=== PATIENT | female | born 1995 | race Caucasian/White ===

== ENCOUNTER 2018-08-02 23:27 | Emergency (ER) | payer BC, SELFPAY ==
[2018-08-02 23:27] VITALS: BP 124/56; PULSE 78; RESP 16; TEMP 36.5; O2SAT 98; BMI 28.0
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
--- NOTE | 2018-08-03 00:28 | ED.DEP ---
ED Disposition - Plan for ED Patient: Chief Complaint: Lower Extremity Injury Instructions: ED Sprain Ankle W X Ray Referrals: Juan A Balbuena DO [Primary Care Provider] -
[2018-08-03 00:31] VITALS: RESP 18
== END 2018-08-03 00:32 | disposition home or self-care (01) ==
LOC: ED 08-03 00:07
PROVIDERS: Emergency Provider Emergency Medicine; Family Provider Student in an Organized Health Care Education/Training Program; PCP Student in an Organized Health Care Education/Training Program
DX: S93.402A Sprain of unspecified ligament of left ankle, initial encounter (principal); W01.0XXA Fall on same level from slipping, tripping and stumbling without subsequent striking against object, initial encounter; Y93.9 Activity, unspecified; Y92.9 Unspecified place or not applicable
CPT/HCPCS: 73610; 99283

== ENCOUNTER → 2022-04-12 | Outpatient (CLI) | payer BC, SELFPAY ==
[2022-04-12 14:13] LABS: Cholesterol 209 mg/dL (200); High Density Lipoprotein 62 mg/dL; Triglycerides 143 mg/dL; Very Low Density Lipoprotein 29 mg/dL (5-40)
== END | disposition home or self-care (01) ==
PROVIDERS: PCP Student in an Organized Health Care Education/Training Program; Visit Provider Nurse Practitioner Family
DX: Z13.220 Encounter for screening for lipoid disorders (principal)
CPT/HCPCS: 80061

== ENCOUNTER 2023-08-24 13:38 | Outpatient (RCR) | payer SELFPAY | END 2023-09-05 23:59 | LOC: NS 13:38 | PROVIDERS: PCP Student in an Organized Health Care Education/Training Program | DX: Z71.3 Dietary counseling and surveillance (principal) ==

== ENCOUNTER 2025-09-20 12:15 | Emergency (ER) | payer BC, SELFPAY ==
[2025-09-20 12:16] VITALS: BP 117/60; PULSE 77; RESP 16; TEMP 36.7; O2SAT 99; BMI 28.5
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
--- NOTE | 2025-09-20 12:53 | PCA ---
THIS US FAXED FACE SHEET TO [facility] [phone]
--- OUTSIDE RECORDS SUMMARY | 2025-09-20 12:57 | XMS RPT_ITS | CCD ---
Author Organization [facility] Care Team Providers Care International Coordinator Name Role Phone Juan A Balbuena DO Primary Care Provider Referred, Self Attending Unavailable Juan A Balbuena Primary Care Unavailable Juan A Balbuena Primary Care Unavailable Referred, Self Attending Unavailable Juan A Balbuena DO Primary Care Provider Juan A Balbuena DO Primary Care Provider Saurabh MARKET GARDENER.Susan ESTEVEZ Unavailable Annalise MARKET GARDENER.Chalino ESTEVEZ Unavailable Jasmyn MARKET GARDENER.CARTON FORMING MACHINE ADJUSTERBushra Unavailable CHALINO BOB Attending Unavailable JUAN A BALBUENA Primary Care Unavailable SUSAN WILEY Attending UnavailJUAN A Diaz Primary Care Unavailable JAYDE BANGURA Attending Unavailable JUAN A BALBUENA Primary Care Unavailable JUAN A BALBUENA Primary Care Unavailable CHALINO BOB Attending Unavailable JUAN A BALBUENA Attending Unavailable JUAN A BALBUENA Primary Care Unavailable JUAN A BALBUENA Referring Unavailable JUAN A BALBUENA Primary Care Unavailable JUAN A BALBUENA Primary Care Unavailable BUSHRA GEE Attending Unavailable BJ HIGH Attending Unavailable JUAN A BALBUENA Primary Care Unavailable Medications Current Medications Medication Drug Class(es) Dates Sig (Normalized) Sig (Original) biotin 10 mg oral capsule (20 sources) Biotin 10,000 mc g cap Take by mouth. Active Comment on above: Take by mouth. cholecalciferol 0.125 mg oral capsule (20 sources) Vitamin D Start: 11-24-2021 take 1 capsule by mouth once daily Cholecalciferol, Vitamin D3, 125 mcg (5,000 unit) cap Indications: Vitamin D deficiency Take 1 capsule by mouth once daily. 90 capsule 3 11/24/2021 Active Comment on above: Take 1 capsule by mo [facility] once daily. cyclobenzaprine hydrochloride 10 mg oral tablet (1 source) Muscle Relaxant Start: 11-22-2024 End: 12-22-2024 take 1 tablet by mouth three times daily as needed cyclobenzaprine (FLEXERIL) 10 mg tablet Indications: Muscle strain Take 1 tablet by mouth three times a day as needed. 30 tablet 11/22/2024 12/22/2024 Active fluocinolone acetonide 0.01588 mg/mg topical ointment (4 sources) Corticosteroid Start: 08-31-2022 End: 10-15-2022 fluocinolone (SYNALAR) 0.025 % ointment Apply to affected area as directed. APPLY PEA-Sized amount 3 TIMES DAILY FOR 2 WEEKS THEN TWICE A DAY FOR TWO WEEKS THEN ONCE A DAY for 2 weeks 60 g 0 08/31/2022 10/15/2022 Active Comment on above: Apply to affected ar ea as directed. APPLY PEA-Sized amount 3 TIMES DAILY FOR 2 WEEKS THEN TWICE A DAY FOR TWO WEEKS THEN ONCE A DAY for 2 weeks magnesium gluconate 500 mg oral tablet (20 sources) Start: 04-19-2022 End: 02-18-2024 take 1 tablet by mouth once daily magnesium gluconate (MAGONATE) 27 mg (500 mg) tab Indications: Migraine without aura, intractable, without status migrainosus Take 1 tablet by mouth once daily. 90 tablet 1 02/19/2024 Active Start: 04-16-2022 take 1 tablet by guerda once daily Magnesium Gluconate 30 mg (550 mg) tab Indications: Headache disorder Take 1 tablet by mouth once daily. 100 tablet 3 04/16/2022 Active Comment on above: Take 1 tablet by guerda once daily. 1 ml medroxyPROGESTERone acetate 150 mg/ml prefilled syringe (20 sources) Progestin Start : 06-25 End: 10-31 medroxyPROGESTERone (DEPO-PROVERA) 150 mg/mL Inject 1 mL intramuscularly every 12 weeks. 1 Each 3 10/31/2024 Active Comment on above: Inject 1 mL intramus cularly every 12 weeks. INJECT IM EVERY 12 WEEKS. INJECT 1 ML INTRAMUS CULARLY EVERY 12 WEEKS. metFORMIN hydrochloride 500 mg oral tablet (20 sources) Biguanide Start : 05-21 End: 09-22 take 1 tablet by mouth twice daily at mealtime metFORMIN (GLUCOPHAGE) 500 mg tablet Indications: Obesity, Class I, BMI 30-34.9 Take 1 tablet by mouth two times a day with meals. 180 tablet 06/24/2025 09/22/2025 Active Start: 05-22-2024 End: 05-21-2025 take 31-31.9 tablets by mouth once daily metFORMIN (GLUCOPHAGE) 500 mg tablet Indications: Class 1 obesity with body mass index (BMI) of 31.0 to 31.9 in adult, unspecified obesity type, unspecified whether serious comorbidity present Take 1 tablet by mouth daily with dinner. 90 tablet 1 11/22/2024 05/21/2025 Discontinued phentermine hydrochloride 37.5 mg oral tablet (20 sources) Sympathomimetic Amine Anorectic Start: 06-13-2025 End: 09-11-2025 Phentermine HCl (ADIPEX-P) 37.5 mg tablet Indications: Obesity, Class I, BMI 30-34.9 Take 1 tablet by mouth once daily for 90 days. BMI 29.49 Patient should start on June 13, 2025. 30 tablet 2 06/13/2025 09/11/2025 Active Start: 08-21-2024 End: 06-01-2025 take 1 tablet by mouth once daily Phentermine HCl (ADIPEX-P) 37.5 mg tablet Indications: Obesity, Class I, BMI 30-34.9 Take 1 tablet by mouth once daily for 90 days. BMI 29.49 Patient should start on March 03, 2025. 30 tablet 2 03/03/2025 05/21/2025 Discontinued Start: 05-22-2024 End: 06-21-2024 take 1 tablet by mouth once daily Phentermine HCl (ADIPEX-P) 37.5 mg tablet Indications: Class 1 obesity with body mass index (BMI) of 31.0 to 31.9 in adult, unspecified obesity type, unspecified whether serious comorbidity present Take 1 tablet by mouth once daily for 30 days. BMI 31.80 30 tablet 2 05/22/2024 06/21/2024 Active predniSONE 10 mg oral tablet (1 source) Start: 04-28-2025 End: 05-03-2025 take 5 tablets by mouth once daily, then take 4 tablets by mouth once daily, then take 3 tablets by mouth once daily, then take 2 tablets by mouth once daily, then take 1 tablet by mouth once daily predniSONE (DELTASONE) 10 mg tablet Indications: Migraine without aura, intractable, without status migrainosus Take 5 tablets by mouth once daily for 1 day, THEN 4 tablets once daily for 1 day, THEN 3 tablets once daily for 1 day, THEN 2 tablets once daily for 1 day, THEN 1 tablet once daily for 1 day. 15 tablet 04/28/2025 05/03/2025 Active riboflavin 100 mg oral tablet (20 sources) Start: 04-16-2022 End: 09-24-2023 take 4 tablets by mouth once daily riboflavin, vitamin B2, (VITAMIN B-2) 100 mg tab Indications: Headache disorder Take 4 tablets by mouth once daily. 400 tablet 3 09/25/2023 Active Comment on above: Take 4 tablets by mo [facility] once daily. rizatriptan 10 mg oral tablet (20 sources) Serotonin-1b and Serotonin-1d Receptor Agonist Start: 10-04-2023 End: 10-07-2024 rizatriptan (MAXALT) 10 mg tablet Indications: Migraine without aura, intractable, without status migrainosus Take 1 tablet at onset on migraine. If no relief in 4 hours, you are able to take one additional dose. Do not exceed 2 within 24 hours. 12 tablet 5 10/08/2024 Active Comment on above: Take 1 tablet at ons et on migraine. If no relief in 4 hours, you are able to take one additional dose. Do not exceed 2 within 24 hours. topiramate 25 mg oral tablet (6 sources) Start: 05-21-2025 End: 08-19-2025 take 1 tablet by mouth once daily topiramate (TOPAMAX) 25 mg tablet Indications: Obesity, Class I, BMI 30-34.9 Take 1 tablet by mouth once daily. 30 tablet 2 05/21/2025 08/19/2025 Active traZODone hydrochloride 50 mg oral tablet (20 sources) Serotonin Reuptake Inhibitor Start: 08-21-2024 take 0.5 tablet by mouth at bedtime as needed traZODone (DESYREL) 50 mg tablet Take 0.5 tablets by mouth at bedtime as needed. For insomnia 08/21/2024 Active Start: 02-08-2019 End: 08-21-2024 take 1 tablet by mouth once daily at bedtime traZODone (DESYREL) 50 mg tablet Take 1 tablet by mouth daily at bedtime. For insomnia 90 tablet 1 02/08/2019 08/21/2024 Discontinued (Adjust Sig - Block E-Cancel) Comment on above: Take 1 tablet by guerda th daily at bedtime. For insomnia Completed/Discontinued Medications Medication Drug Class(es) Dates Sig (Normalized) Sig (Original) 24 hr buPROPion hydrochloride 150 mg extended release oral tablet (8 sources) Aminoketone Start: 3 End: 3 take 1 tablet by mouth once daily buPROPion XL (WELLBUTRIN XL) 150 mg 24 hr tablet Indications: FABIENNE (generalized anxiety disorder) , Situational insomnia , Fatigue, unspecified type , Decreased libido Take 1 tablet by mouth once daily. 30 tablet 0 02/16/2023 04/12/2023 Discontinued Comment on above: Take 1 tablet by guerda th once daily. escitalopram 10 mg oral tablet (20 sources) Serotonin Reuptake Inhibitor Start: 2 End: 5 take 1 tablet by mouth once daily at bedtime escitalopram oxalate (LEXAPRO) 10 mg tablet Indications: FABIENNE (generalized anxiety disorder) , Situational insomnia Take 1 tablet by mouth daily at bedtime. 90 tablet 3 03/06/2024 02/21/2025 Discontinued Comment on above: Take 1 tablet by guerda th daily at bedtime. fluticasone propionate 0.05 mg/actuat metered dose nasal spray (4 sources) Corticosteroid Start: 0 End: 2 take 2 spray(s) nasal route once daily at bedtime fluticasone (FLONASE) 50 mcg/actuation nasal spray Use 2 Sprays in each nostril daily at bedtime. 1 Bottle 05/21/2020 03/31/2022 Discontinued Comment on above: Use 2 Sprays in each nostril daily at bedtime. meloxicam 15 mg oral tablet (4 sources) Nonsteroidal Anti-inflammatory Drug Start: 2 End: 2 take 1 tablet by mouth once daily at mealtime meloxicam (MOBIC) 15 mg tablet Indications: Chronic right shoulder pain Take 1 tablet by mouth once daily. With food. 90 tablet 3 11/24/2021 03/31/2022 Discontinued Comment on above: Take 1 tablet by guerda once daily. With food. methylPREDNISolone (2 sources) Corticosteroid Start: 2 End: 2 methylPREDNISolone (MEDROL, LUIS,) 4 mg Dose-Pack Indications: Finger swelling , Pain of finger of left hand Follow dosing instructions, take with food. 1 Package 03/31/2022 04/06/2022 Start: 03-31-2022 End: 04-06-2022 methylPREDNISolone (MEDROL, LUIS,) 4 mg Dose-Pack Indications: Finger swelling , Pain of finger of left hand Follow dosing instructions, take with food. 1 Package 0 03/31/2022 04/06/2022 Active Comment on above: Follow dosing instru ctions, take with food. omeprazole 20 mg delayed release oral capsule (5 sources) Proton Pump Inhibitor Start: 08-15-20 End: 10-12-20 take 1 capsule by mouth once daily before breakfast omeprazole (PRILOSEC) 20 mg capsule Take 1 capsule by mouth daily before breakfast. 1/2 hr before meal. 30 capsule 2 08/15/2022 10/12/2022 Discontinued Comment on above: Take 1 capsule by mo [facility] daily before breakfast. 1/2 hr before meal. perflutren lipid microspheres 1.3 mL in NaCl (PF) 0.9% 10 mL injection (DEFINITY) (18 sources) Start: 04-12-20 End: 07-11-20 24 perflutren lipid microspheres 1.3 mL in NaCl (PF) 0.9% 10 mL injection (DEFINITY) 125 ml sodium chloride 9 mg/ml prefilled syringe (20 sources) Start: 04-12-20 End: 07-11-20 24 sodium chloride 0.9 % (flush) 10 mL (BD POSIFLUSH) Start: 05-21-2020 End: 03-31-2022 sodium chloride (OCEAN NASAL ) 0.65 % nasal spray Use 2 Sprays in the nose as needed for Cold/Allergy Symptoms. 60 mL 05/21/2020 03/31/2022 Discontinued Comment on above: Use 2 Sprays in the nose as needed for Cold/Allergy Symptoms. Vitamin B Complex (20 sources) End: 10-04-2023 vitamin B complex (B COMPLEX ORAL) Take by mouth. 10/04/2023 Discontinued End: 10-04-2023 vitamin B complex (B COMPLEX ORAL) Take by mouth. 0 10/04/2023 Discontinued vitamin B comple x (B COMPLEX ORAL) Take by mouth. 0 Active Comment on above: Take by mouth. Problems Active Problems Problem Classification Problem Date Documented Da te Episodic/Chronic Abdominal pain (6 sources) Left lower quadrant pain; Translations: [Left lower quadrant pain] 03-06-2024 Episodic Anxiety disorders (20 sources) Anxiety; Translations: [Anxiety disorder, unspecified] Onset: 8 Resolved: 2 07-31-2018 Chronic Coma; stupor; and brain damage (1 source) Daytime somnolence; Translations: [Somnolence] Episodic Contraceptive and procreative management (1 source) Contraception ; Translations: [Encounter for surveillance of injectable contraceptive] 10-31-2024 Episodic Disorders of lipid metabolism (1 source) Hyperlipidemia, unspecified; Translations: [Dyslipidemia] Onset: 5 Chronic Esophageal disorders (1 source) Gastroesophageal reflux disease without esophagitis; Translations: [Gastro-esophageal reflux disease without esophagitis] Chronic Headache; including migraine (20 sources) Refractory migraine without aura; Translations: [Migraine without aura, intractable, without status migrainosus] Onset: 4 10-04-2023 Chronic Headache; including migraine (3 sources) Headache disorder; Translations: [Headache disorder] Episodic Heart valve disorders (1 source) Heart murmur; Translations: [Cardiac murmur, unspecified] Episodic Immunizations and screening for infectious disease (4 sources) Requires vaccination; Translations: [Encounter for immunization] Episodic Miscellaneous mental health disorders (20 sources) Insomnia; Translations: [Other insomnia not due to a substance or known physiological condition] Onset: 9 03-13-2019 Chronic Nutritional deficiencies (20 sources) Vitamin D deficiency; Translations: [Vitamin D deficiency, unspecified] Onset: 8 07-31-2018 Chronic Open wounds of extremities (1 source) Open wound of toe; Translations: [Unspecified open wound of unspecified toe(s) without damage to nail, initial encounter] Episodic Other and unspecified benign neoplasm (1 source) Multiple benign melanocytic nevi ; Translations: [Melanocytic nevi, unspecified] Episodic Other and unspecified benign neoplasm (1 source) Senile angioma; Translations: [Hemangioma of skin and subcutaneous tissue] Episodic Other connective tissue disease (1 source) Swelling of finger ; Translations: [Other specified soft tissue disorders] 03-31-2022 Episodic Other connective tissue disease (1 source) Pain in finger of left hand; Translations: [Pain in left finger(s)] 03-31-2022 Episodic Other connective tissue disease (1 source) Pain of left hand; Translations: [Pain in left hand] 12-14-2021 Episodic Other female genital disorders (1 source) Pruritus of vagina; Translations: [Other specified noninflammatory disorders of vagina] Episodic Other female genital disorders (1 source) Vaginal discharge; Translations: [Other specified noninflammatory disorders of vagina] 10-31-2024 Episodic Other gastrointestinal disorders (3 sources) Altered bowel function; Translations: [Change in bowel habit] 03-06-2024 Episodic Other injuries and conditions due to external causes (1 source) Injury of left wrist; Translations: [Unspecified injury of left wrist, hand and finger(s), initial encounter] 12-14-2021 Episodic Other injuries and conditions due to external causes (1 source) Muscle strain; Translations: [Other injury of unspecified body region, initial encounter] 11-22-2024 Episodic Other lower respiratory disease (1 source) Snoring; Translations: [Snoring] Episodic Other non-traumatic joint disorders (1 source) Pain of left wrist; Translations: [Pain in left wrist] 12-14-2021 Episodic Other nutritional; endocrine; and metabolic disorders (20 sources) Obese class I; Translations: [Obesity, unspecified] Onset: 2 Chronic Other nutritional; endocrine; and metabolic disorders (20 sources) Obesity; Translations: [Obesity, unspecified] Onset: 4 05-22-2024 Chronic Other nutritional; endocrine; and metabolic disorders (1 source) Body mass index (BMI) 31.0-31.9, adult; Translations: [Class 1 obesity with body mass index (BMI) of 31.0 to 31.9 in adult, unspecified obesity type, unspecified whether serious comorbidity present] Onset: 4 Chronic Other nutritional; endocrine; and metabolic disorders (1 source) Body mass index (BMI) 30.0-30.9, adult; Translations: [Class 1 obesity with body mass index (BMI) of 30.0 to 30.9 in adult, unspecified obesity type, unspecified whether serious comorbidity present] Onset: 4 Chronic Other nutritional; endocrine; and metabolic disorders (1 source) Overweight; Translations: [Overweight with body mass index (BMI) of 28 to 28.9 in adult] Onset: 5 Episodic Other nutritional; endocrine; and metabolic disorders (1 source) Body mass index (BMI) 28.0-28.9, adult; Translations: [Overweight with body mass index (BMI) of 28 to 28.9 in adult] Onset: 5 Episodic Other screening for suspected conditions (not mental disorders or infectious disease) (8 sources) Patient encounter status; Translations: [Encounter for screening for diabetes mellitus] Onset: 5 06-22-2023 Episodic Other skin disorders (1 source) Skin tag; Translations: [Other hypertrophic disorders of the skin] Episodic Other skin disorders (1 source) Lentiginosis; Translations: [Other melanin hyperpigmentation] Episodic Other upper respiratory infections (1 source) Acute upper respiratory infection, unspecified; Translations: [URI, acute] Onset: 5 Episodic Residual codes; unclassified (1 source) Treatment not available; Translations: [Procedure and treatment not carried out for other reasons] Episodic Residual codes; unclassified (4 sources) Reduced libido; Translations: [Decreased libido] Episodic Residual codes; unclassified (1 source) FH: premature coronary heart disease; Translations: [Family history of ischemic heart disease and other diseases of the circulatory system] Episodic Unclassified (1 source) Obesity, Class I, BMI 30-34.9; Translations: [Obesity, Class I, BMI 30-34.9] Onset: 2 Unclassified (1 source) Class 1 obesity with body mass index (BMI) of 31.0 to 31.9 in adult, unspecified obesity type, unspecified whether serious comorbidity present; Translations: [Class 1 obesity with body mass index (BMI) of 31.0 to 31.9 in adult, unspecified obesity type, unspecified whether serious comorbidity present] Onset: 4 Unclassified (1 source) Class 1 obesity with body mass index (BMI) of 30.0 to 30.9 in adult, unspecified obesity type, unspecified whether serious comorbidity present; Translations: [Class 1 obesity with body mass index (BMI) of 30.0 to 30.9 in adult, unspecified obesity type, unspecified whether serious comorbidity present] Onset: 4 Past or Other Problems Problem Classification Problem Date Documented Da te Episodic/Chronic Allergic reactions (20 sources) Non-celiac gluten sensitivity; Translations: [Celiac disease] Onset: 07-31-2018 Resolved: 05-19-2021 05-19-2021 Chronic Malaise and fatigue (20 sources) Fatigue; Translations: [Other fatigue] Onset: 07-31-2018 Resolved: 08-31-2022 07-31-2018 Episodic Nonmalignant breast conditions (20 sources) Large breast; Translations: [Hypertrophy of breast] Onset: 06-20-2018 Resolved: 08-31-2022 06-20-2018 Episodic Other injuries and conditions due to external causes (1 source) Other injury of unspecified body region, initial encounter; Translations: [Muscle strain] Onset: 11-22-2024 Episodic Other non-traumatic joint disorders (20 sources) Chronic pain of right upper limb; Translations: [Pain in right shoulder] Onset: 03-15-2021 Resolved: 04-22-2021 04-22-2021 Episodic Residual codes; unclassified (20 sources) FH: Thyroid disorder; Translations: [Family history of other endocrine, nutritional and metabolic diseases] Onset: 07-31-2018 07-31-2018 Episodic Screening and history of mental health and substance abuse codes (1 source) Encounter for screening for depression; Translations: [Screening for depression] Onset: 11-22-2024 Episodic Sprains and strains (20 sources) Strain of right trapezius muscle; Translations: [Strain of other muscles, fascia and tendons at shoulder and upper arm level, right arm, initial encounter] Onset: 06-10-2019 Resolved: 08-31-2022 06-10-2019 Episodic Results Test Name Value Interpretation Reference Range Facility [facility] 07-23-2025 CNOV Office Visit (FAMPWS ) -------- NATALEE COLLADO ([id number]) 1995 F Date Time Provider Department 07/23/25 6:20 PM JUAN A BALBUENA FAMPWS During your visit today, we recorded the following information about you: Temperature Pulse Respiration Blood pressure 97 degrees 68/minute 12/minute 120/80 Weight Height 73.5 kg 1.62 m Juan A Balbuena, DO 07/23/2025 7:01 PM Signed Recoding visit in May with Hypertriglyceridemia as primary diagnosis, not obesity Juan A Balbuena, 07/24/2025 8:56 AM Signed CC: Natalee Collado is a 30 year old female who presents to the office to establish care. HPI: Weight Management: - Currently taking phentermine daily - total weight loss of 11-15 lbs over the past year since weight loss meds initiated - Taking metformin once daily at bedtime - Decreased physical activity due to hot weather; not walking as much as should - has been trying to increase her veggie intake - Drinking lots of water; reports low protein intake. - Engages in intermittent fasting, eating between 12:00 and 21:00 besides creamer in her coffee - Snacks at work, often from vending machines. But doesn't buy those things for at home - Has not tried protein shakes; open to trying [employer] or [employer]. Weight loss meds: Metformin since November (1 tab) Phentermine since May 2024 Denies any side effects from meds, no GI upset , no palpitations, no difficulty sleeping URI symptoms for the last 1 week since being at the [facility], no fevers or chills. +sinus pressure on left. No cough, no vomiting or diarrhea. Has been trying over the counter support for cold and increased vitamins and fluids. PAST MEDICAL HISTORY Diagnosis Date Anxiety state PAST SURGICAL HISTORY Procedure Laterality Date PAST SURGICAL HISTORY OF 04/06/2013 [place] teeth REDUCTION OF LARGE BREAST 2019 Social History: SOCIAL HISTORY[1] FAMILY HISTORY Problem Relation Age of Onset Arthritis Mother Heart Mother 53 Asthma Sister other (endometriosis) Sister Osteoporosis Maternal Grandmother Thyroid Maternal Grandmother thyroidectomy Thyroid Maternal Grandfather Heart Maternal Grandfather 50 Diabetes Paternal Grandmother Heart Maternal Aunt 40 Stroke Maternal Aunt 60 Current Outpatient prescriptions: topiramate (TOPAMAX) 25 mg tablet Take 1 tablet by mouth once daily. amoxicillin-clavulanate potassium (AUGMENTIN) 875-125 mg per tablet Take 1 tablet by mouth every 12 hours for 10 days. Phentermine HCl (ADIPEX-P) 37.5 mg tablet Take 1 tablet by mouth once daily for 90 days. BMI 29.49 metFORMIN (GLUCOPHAGE) 500 mg tablet Take 1 tablet by mouth two times a day with meals. medroxyPROGESTERone (DEPO-PROVERA) 150 mg/mL Inject 1 mL intramuscularly every 12 weeks. traZODone (DESYREL) 50 mg tablet Take 0.5 tablets by mouth at bedtime as needed. For insomnia Syringe with Needle, Disp, (SYRINGE 3CC/22GX1) 3 mL 22 gauge x 1 use one needle and syringe for IM injection of depoprovera q 12 weeks magnesium gluconate (MAGONATE) 27 mg (500 mg) tab Take 1 tablet by mouth once daily. Cholecalciferol, Vitamin D3, 125 mcg (5,000 unit) cap Take 1 capsule by mouth once daily. Biotin 10,000 mcg cap Take by mouth. Allergies: ALLERGIES No Known Allergies ROS: See HPI PE: 07/23/25 1812 BP: 120/80 Pulse: 68 Resp: 12 Temp: 36.1 ?C (97 ?F) TempSrc: Left Tympanic Weight: 73.5 kg (162 lb) Height: 162 cm (5' 3.78) Gen: AANDO, NAD, non-toxic appearing, Pleasant, cooperative HEENT: NT/AC, PERRLA, EOMs intact b/l, nares congested b/l and left maxillary sinus TTP, MMM, pharynx without erythema, exudate or lesions. Uvula midline. EACs without erythema or debris. TMs pearly gutierrez with intact landmarks b/l. Neck: supple, No cervical LAD, no thyromegaly, no carotid bruits CV: RRR, normal S1 and S2, no murmurs, no gallops, no rubs, Pulses 2+ and symmetric in UE and LE b/l Lungs: normal respiratory effort, CTA b/l, no wheezing or rhonchi or rales Abd: soft, overweight, NT, ND, +BS, no hepatosplenomegaly MS: FROM all 4 extremities Neuro: CN II-XII intact b/l, strength 5/5 b/l UE and LE, DTRs 2/4 UE and LE, sensation intact. Skin: warm, dry, intact, No rashes or lesions on exposed skin. No edema, normal peripheral pulses ASSESSMENT/PLAN: 1. Well adult exam - ICD9: V70.0, ICD10: Z00.00 (primary diagnosis) - Counseled on healthy diet and regular exercise - Discussed need and benefit for weight loss. BMI 28.00 kg/(m2) 2. Migraine without aura, intractable, without status migrainosus - ICD9: 346.11, ICD10: G43.019 stable 3. Overweight with body mass index (BMI) of 28 to 28.9 in adult - ICD9: 278.02, V85.24, ICD10: E66.3, Z68.28 - Lengthy discussion in office today regarding diet and exercise. Discussed use of small plate to eat meals from, drink 1 glass of water (more content not included)... Normal [facility] CBC W Auto Differential pane l (Bld)on 07-22-2025 Basophils (Bld) [#/Vol] 0.03 10*3/uL Normal <0.11 [facility] Comment on above: Order Comment: Speci men Type: BLOOD SPECIMENOrdering Facility: [facility] Address: [address] [id number] Performed By: #### 5 7021-8 ####[facility] [id number] [place] [address] [place] Basophils/100 WBC (Bld) 0.5 % Normal [facility] Comment on above: Order Comment: Speci men Type: BLOOD SPECIMENOrdering Facility: [facility] Address: [address] [id number] Performed By: #### 5 7021-8 ####[facility] MILLWREMALIA [id number] [place] [address] [place] Differential cell count method Nom (Bld) Auto Normal [facility] Comment on above: Order Comment: Speci men Type: BLOOD SPECIMENOrdering Facility: [facility] Address: [address] [place] [address] Performed By: #### 5 7021-8 ####[facility] HOSPITALREMALIA [id number] [place] [address] [place] Eosinophils (Bld) [#/Vol] 0.16 10*3/uL Normal <0.46 [facility] Comment on above: Order Comment: Speci men Type: BLOOD SPECIMENOrdering Facility: [facility] Address: [address] [place] [address] Performed By: #### 5 7021-8 ####[facility] HOSPITALREMALIA [id number] [place] [address] [place] Eosinophils/100 WBC (Bld) 2.7 % Normal [facility] Comment on above: Order Comment: Speci men Type: BLOOD SPECIMENOrdering Facility: [facility] Address: [address] [place] [address] Performed By: #### 5 7021-8 ####[facility] HOSPITALREMALIA [id number] [place] [address] [place] Erythrocyte distribution width (RBC) [Ratio] 11.9 % Normal 11.5-15.0 [facility] Comment on above: Order Comment: Speci men Type: BLOOD SPECIMENOrdering Facility: [facility] Address: [address] [place] [address] Performed By: #### 5 7021-8 ####[facility] HOSPITALNCLIA [id number] [place] [address] [place] Hematocrit (Bld) [Volume fraction] 40.7 % Normal 36.0-46.0 [facility] Comment on above: Order Comment: Speci men Type: BLOOD SPECIMENOrdering Facility: [facility] Address: [address] [place] [address] Performed By: #### 5 7021-8 ####[facility] [id number] [place] [address] [place] Hemoglobin (Bld) [Mass/Vol] 14.5 g/dL Normal 11.5-15.5 [facility] Comment on above: Order Comment: Speci men Type: BLOOD SPECIMENOrdering Facility: [facility] Address: [address] [place] [address] Performed By: #### 5 7021-8 ####[facility] [id number] [place] [address] [place] Immature granulocytes (Bld) [#/Vol] 10*3/uL Normal <0.10 [facility] Comment on above: Order Comment: Speci men Type: BLOOD SPECIMENOrdering Facility: [facility] Address: [address] [place] [address] Performed By: #### 5 7021-8 ####[facility] [id number] [place] [address] [place] Immature granulocytes/100 WBC (Bld) 0.2 % Normal [facility] Comment on above: Order Comment: Speci men Type: BLOOD SPECIMENOrdering Facility: [facility] Address: [address] [place] [address] Performed By: #### 5 7021-8 ####[facility] [id number] [place] [address] [place] Lymphocytes (Bld) [#/Vol] 2.16 10*3/uL Normal 1.00-4.00 [facility] Comment on above: Order Comment: Speci men Type: BLOOD SPECIMENOrdering Facility: [facility] Address: [address] [place] [address] Performed By: #### 5 7021-8 ####[facility] SONALIVANESSA [id number] [place] [address] [place] Lymphocytes/100 WBC (Bld) 35.8 % Normal [facility] Comment on above: Order Comment: Speci men Type: BLOOD SPECIMENOrdering Facility: [facility] Address: [address] [place] [address] Performed By: #### 5 7021-8 ####[facility] HOSPITALNCCATALINA [id number] [place] [address] [place] MCH (RBC) [Entitic mass] 29.0 pg Normal 26.0-34.0 [facility] Comment on above: Order Comment: Speci men Type: BLOOD SPECIMENOrdering Facility: [facility] Address: [address] [place] [address] Performed By: #### 5 7021-8 ####[facility] HOSPITALNCCATALINA [id number] [place] [address] [place] MCHC (RBC) [Mass/Vol] 35.6 g/dL Normal 30.5-36.0 [facility] Comment on above: Order Comment: Speci men Type: BLOOD SPECIMENOrdering Facility: [facility] Address: [address] [place] [address] Performed By: #### 5 7021-8 ####[facility] HOSPITALNCLIA [id number] [place] [address] [place] MCV (RBC) [Entitic vol] 81.4 fL Normal 80.0-100.0 [facility] Comment on above: Order Comment: Speci men Type: BLOOD SPECIMENOrdering Facility: [facility] Address: [address] [place] [address] Performed By: #### 5 7021-8 ####[facility] MILLWNCLIA [id number] [place] [address] [place] Monocytes (Bld) [#/Vol] 0.40 10*3/uL Normal <0.87 [facility] Comment on above: Order Comment: Speci men Type: BLOOD SPECIMENOrdering Facility: [facility] Address: [address] [place] [address] Performed By: #### 5 7021-8 ####[facility]OSPITALLIA [id number] [place] [address] [place] Monocytes/100 WBC (Bld) 6.6 % Normal [facility] Comment on above: Order Comment: Speci men Type: BLOOD SPECIMENOrdering Facility: [facility] Address: [address] [place] [address] Performed By: #### 5 7021-8 ####[facility] HOSPITALLIA [id number] [place] [address] [place] Neutrophils (Bld) [#/Vol] 3.27 10*3/uL Normal 1.45-7.50 [facility] Comment on above: Order Comment: Speci men Type: BLOOD SPECIMENOrdering Facility: [facility] Address: [address] [place] [address] Performed By: #### 5 7021-8 ####[facility]OSPITALLIA [id number] [place] [address] [place] Neutrophils/100 WBC (Bld) 54.2 % Normal [facility] Comment on above: Order Comment: Speci men Type: BLOOD SPECIMENOrdering Facility: [facility] Address: [address] [place] [address] Performed By: #### 5 7021-8 ####[facility] HOSPITALNCLIA [id number] [place] [address] [place] Nucleated RBC (Bld) [#/Vol] 10*3/uL Normal <0.01 [facility] Comment on above: Order Comment: Speci men Type: BLOOD SPECIMENOrdering Facility: [facility] Address: [address] [place] [address] Performed By: #### 5 7021-8 ####[facility] [id number] [place] [address] [place] Nucleated RBC/100 WBC (Bld) [Ratio] 0.0 /[address] [facility] Comment on above: Order Comment: Speci men Type: BLOOD SPECIMENOrdering Facility: [facility] Address: [address] [place] [address] Performed By: #### 5 7021-8 ####[facility] [id number] [place] [address] [place] Platelet mean volume (Bld) [Entitic vol] 10.0 fL Normal 9.0-12.7 [facility] Comment on above: Order Comment: Speci men Type: BLOOD SPECIMENOrdering Facility: [facility] Address: [address] [place] [address] Performed By: #### 5 7021-8 ####[facility] [id number] [place] [address] [place] Platelets (Bld) [#/Vol] 253 10*3/uL Normal 150-400 [facility] Comment on above: Order Comment: Speci men Type: BLOOD SPECIMENOrdering Facility: [facility] Address: [address] [place] [address] Performed By: #### 5 7021-8 ####[facility] [id number] [place] [address] [place] RBC (Bld) [#/Vol] 5.00 10*6/uL Normal 3.90-5.20 [facility] Comment on above: Order Comment: Speci men Type: BLOOD SPECIMENOrdering Facility: [facility] Address: [address] [place] [address] Performed By: #### 5 7021-8 ####[facility] SONALIWNCLIA [id number] [place] [address] [place] WBC (Bld) [#/Vol] 6.03 10*3/uL Normal 3.70-11.00 [facility] Comment on above: Order Comment: Speci men Type: BLOOD SPECIMENOrdering Facility: [facility] Address: [address] [place] [address] Performed By: #### 5 7021-8 ####[facility] HOSPITALNCLIA [id number] [place] [address] [place] Comprehensive metabolic 2000 panelon 07-22-2025 Albumin [Mass/Vol] 4.6 g/dL Normal 3.9-4.9 [facility] Comment on above: Order Comment: Speci men Type: BLOOD SPECIMENOrdering Facility: [facility] Address: [address] [place] [address] Performed By: #### 2 4323-8 ####[facility] HOSPITALNCLIA [id number] [place] [address] [place] ALP [Catalytic activity/Vol] 78 U/L Normal 34-123 [facility] Comment on above: Order Comment: Speci men Type: BLOOD SPECIMENOrdering Facility: [facility] Address: [address] [place] [address] Performed By: #### 2 4323-8 ####[facility] HOSPITALNCLIA [id number] [place] [address] [place] ALT [Catalytic activity/Vol] 16 U/L Normal 7-38 [facility] Comment on above: Order Comment: Speci men Type: BLOOD SPECIMENOrdering Facility: [facility] Address: [address] [place] [address] Performed By: #### 2 4323-8 ####[facility] MYCHAL MILLTOWNCLIA [id number] [place] [address] [place] Anion gap [Moles/Vol] 13 mmol/L Normal 8-15 [facility] Comment on above: Order Comment: Speci men Type: BLOOD SPECIMENOrdering Facility: [facility] Address: [address] [place] [address] Performed By: #### 2 4323-8 ####[facility] MILLTOWNCLIA [id number] [place] [address] [place] AST [Catalytic activity/Vol] 15 U/L Normal 13-35 [facility] Comment on above: Order Comment: Speci men Type: BLOOD SPECIMENOrdering Facility: [facility] Address: [address] [place] [address] Performed By: #### 2 4323-8 ####[facility] MILLWNCLIA [id number] [place] [address] [place] Bilirubin [Mass/Vol] 0.6 mg/dL Normal 0.2-1.3 [facility] Comment on above: Order Comment: Speci men Type: BLOOD SPECIMENOrdering Facility: [facility] Address: [facility] [place] [address] Performed By: #### 2 4323-8 ####[facility] MILLTOWNCLIA [id number] [place] [address] [place] Calcium [Mass/Vol] 9.8 mg/dL Normal 8.5-10.2 [facility] Comment on above: Order Comment: Speci men Type: BLOOD SPECIMENOrdering Facility: [facility] Address: [facility] [address] [id number] Performed By: #### 2 4323-8 ####[facility] MILLTOWNCLIA [id number] [place] [address] [place] Chloride [Moles/Vol] 105 mmol/L Normal 98-107 [facility] Comment on above: Order Comment: Speci men Type: BLOOD SPECIMENOrdering Facility: [facility] Address: [address] [place] [address] Performed By: #### 2 4323-8 ####[facility] [id number] [place] [address] [place] CO2 [Moles/Vol] 21 mmol/L Low 22-30 [facility] Comment on above: Order Comment: Speci men Type: BLOOD SPECIMENOrdering Facility: [facility] Address: [address] [place] [address] Performed By: #### 2 4323-8 ####[facility] [id number] [place] [address] [place] Creatinine [Mass/Vol] 0.92 mg/dL Normal 0.58-0.96 [facility] Comment on above: Order Comment: Speci men Type: BLOOD SPECIMENOrdering Facility: [facility] Address: [address] [place] [address] Performed By: #### 2 4323-8 ####[facility]OSPITALLI [id number] [place] [address] [place] eGFRcr SerPlBld CKD-EPI 2020 85 mL/min/1.73m??? Normal >=60 [facility] Comment on above: Order Comment: Speci men Type: BLOOD SPECIMENOrdering Facility: [facility] Address: [address] [place] [address] Result Comment: Nanette mated Glomerular Filtration Rate (eGFR) is calculated using the 2020 CKD-EPI creatinine equation. This equation utilizes serum creatinine, sex, and age as parameters. The creatinine assay has traceable calibration to isotope dilution-mass spectrometry. Refer to KDIGO guidelines for clinical interpretation. In patients with unstable renal function, e.g. those with acute kidney injury, the eGFR may not accurately reflect actual GFR. Performed By: #### 2 4323-8 ####[facility] SONALIWNCLIA [id number] [place] [address] [place] Glucose [Mass/Vol] 93 mg/dL Normal 74-99 [facility] Comment on above: Order Comment: Speci men Type: BLOOD SPECIMENOrdering Facility: [facility] Address: [address] [place], [place] [address] Result Comment: The [place] Diabetes Association (ADA) provides guidance for cutoff values for fasting glucose and random glucose. The ADA defines fasting as no caloric intake for at least 8 hours. Fasting plasma glucose results between 100 to 125 mg/dL indicate increased risk for diabetes (prediabetes). Fasting plasma glucose results greater than or equal to 126 mg/dL meet the criteria for diagnosis of diabetes. In the absence of unequivocal hyperglycemia, results should be confirmed by repeat testing. In a patient with classic symptoms of hyperglycemia or hyperglycemic crisis, random plasma glucose results greater than or equal to 200 mg/dL meet the criteria for diagnosis of diabetes. Reference: Standards of Medical Care in Diabetes 2016, [place] Diabetes Association. Diabetes Care. 2016.39(Suppl 1). Performed By: #### 2 4323-8 ####[facility]ENTERA [id number] [place] [address] [place] Potassium [Moles/Vol] 3.6 mmol/L Low 3.7-5.1 [facility] Comment on above: Order Comment: Speci men Type: BLOOD SPECIMENOrdering Facility: [facility] Address: [address] [place] [address] Performed By: #### 2 4323-8 ####[facility] HOSPITALNCLIA [id number] [address] [address] [place] Protein [Mass/Vol] 7.6 g/dL Normal 6.3-8.0 [facility] Comment on above: Order Comment: Speci men Type: BLOOD SPECIMENOrdering Facility: [facility] Address: [address] [place] [address] Performed By: #### 2 4323-8 ####[facility] [id number] [place] [address] [place] Sodium [Moles/Vol] 139 mmol/L Normal 136-144 [facility] Comment on above: Order Comment: Speci men Type: BLOOD SPECIMENOrdering Facility: [facility] Address: [address] [place] [address] Performed By: #### 2 4323-8 ####[facility] [id number] [place] [address] [place] Urea nitrogen [Mass/Vol] 9 mg/dL Normal 7-21 [facility] Comment on above: Order Comment: Speci men Type: BLOOD SPECIMENOrdering Facility: [facility] Address: [address] [place] [address] Performed By: #### 2 4323-8 ####[facility] [id number] [place] [address] [place] HbA1c (Bld)on 07-22-2025 Average glucose Estimated from glycated hemoglobin (Bld) [Mass/Vol] 88 mg/dL Normal [facility] Comment on above: Order Comment: Speci men Type: BLOOD SPECIMENOrdering Facility: [facility] Address: [address] [place] [address] Result Comment: eAG: (Estimated average glucose) is a calculated value from HgbA1c and is kiosk sales representative of the average blood glucose level in the last 2-3 month period. Performed By: #### 5 5454-3 ####[facility] LABCLIA [id number] [place] [address] [place] HbA1c (Bld) [Mass fraction] 4.7 % Normal 4.3-5.6 [facility] Comment on above: Order Comment: Speci men Type: BLOOD SPECIMENOrdering Facility: [facility] Address: [address] [place] [address] Result Comment: [place] Diabetes Association guidelines indicate that patients with HgbA1c in the range 5.7-6.4% are at increased risk for development of diabetes, and intervention by lifestyle modification may be beneficial. HgbA1c greater or equal to 6.5% is considered diagnostic of diabetes. Performed By: #### 5 5454-3 ####[facility] LABCLIA [id number] [facility] [place] [id number] [facility] OF [place] Lipid 1996 panelon 5 Cholesterol [Mass/Vol] 168 mg/dL Normal <200 [facility] Comment on above: Order Comment: Speci men Type: BLOOD SPECIMENOrdering Facility: [facility] Address: [address] [place] [address] Result Comment: <200 mg/dL, Desirable 200-239 mg/dL, Borderline high >239 mg/dL, High Performed By: #### 2 4331-1 ####[facility] LABCLIA [id number] [address], [id number] [place] [address] Cholesterol in HDL [Mass/Vol] 39 mg/dL Low >39 [facility] Comment on above: Order Comment: Pji men Type: BLOOD SPECIMENOrdering Facility: [facility] Address: [address] [place] [address] Result Comment: 40-5 9 mg/dL, Acceptable >59 mg/dL, High: Negative risk factor for coronary heart disease <40 mg/dL, Low: Positive risk factor for coronary heart disease Performed By: #### 2 4331-1 ####[facility] LABCLIA [id number] [place] [id number] [facility] [id number] [address] Cholesterol in LDL [Mass/Vol] 102 mg/dL High <100 [facility] Comment on above: Order Comment: Speci men Type: BLOOD SPECIMENOrdering Facility: [facility] Address: [address] [place] [address] Result Comment: <100 mg/dL, Optimal 100-129 mg/dL, Near optimal/above optimal 130-159 mg/dL, Borderline high 160-189 mg/dL, High >189 mg/dL, Very high Secondary prevention optimal LDL Cholesterol levels are recommended to be <70 mg/dL LDL cholesterol is calculated using the Warner-NIH equation. Performed By: #### 2 4331-1 ####[facility] [id number] [address] [id number] [place] [address] STATES [facility] Cholesterol in LDL/Cholesterol in HDL [Mass ratio] 2.62 {ratio} High <2.54 [facility] Comment on above: Order Comment: Pji men Type: BLOOD SPECIMENOrdering Facility: [facility] Address: [address] [place] [address] Result Comment: Refe rence: 1. National Cholesterol Education Program ATP III Guideline At-A-Glance Quick Desk Reference: National Heart, Lung, and Blood [place]. National Institutes of Health. 2001: NIH Publication No. 01-3305. 2. An International Atherosclerosis Society position paper: global recommendations for the management of dyslipidemia: executive summary, Atherosclerosis. 2014: 232(2):410-413. Performed By: #### 2 4331-1 ####[facility]PITALIA [id number] [address] [id number] [place] [address] [place] Cholesterol in VLDL [Mass/Vol] 25 mg/dL Normal <30 [facility] Comment on above: Order Comment: Speci men Type: BLOOD SPECIMENOrdering Facility: [facility] Address: [address] [place] [address] Performed By: #### 2 4331-1 ####[facility] LABCLIA [id number] [address] [address] [facility] [id number] [place] [address] [facility] Cholesterol non HDL [Mass/Vol] 129 mg/dL Normal <130 [facility] Comment on above: Order Comment: Speci men Type: BLOOD SPECIMENOrdering Facility: [facility] Address: [address] [place] [address] Result Comment: <130 mg/dL, Optimal 130-159 mg/dL, Near optimal/above optimal 160-189 mg/dL, Borderline high 190-219 mg/dL, High >219 mg/dL, Very high Secondary prevention optimal non HDL Cholesterol levels are recommended to be <100 mg/dL Performed By: #### 2 4331-1 ####[facility] LABCLIA [id number] [address] [id number] [place] [address] [place] Cholesterol.total/Chol esterol in HDL [Mass ratio] 4.31 {ratio} Normal <5.10 [facility] Comment on above: Order Comment: Speci men Type: BLOOD SPECIMENOrdering Facility: [facility] Address: [address] [place] [address] Performed By: #### 2 4331-1 ####[facility] LABCLIA [id number] [address] [address] [facility] [id number] [place] [address] [place] FASTING TIME [address] [facility] Comment on above: Order Comment: Speci men Type: BLOOD SPECIMENOrdering Facility: [facility] Address: [address] [place] [address] Performed By: #### 2 4331-1 ####[facility] LABCLIA [id number] [place] [id number] [facility] [id number] [address] STATES [facility] Triglyceride [Mass/Vol] 155 mg/dL High <150 [facility] Comment on above: Order Comment: Speci men Type: BLOOD SPECIMENOrdering Facility: [facility] Address: [address] [place] [address] Result Comment: <150 mg/dL, Normal 150-199 mg/dL, Borderline high 200-499 mg/dL, High >499 mg/dL, Very high Performed By: #### 2 4331-1 ####[facility]ITAL[facility] [id number] [address] [id number] [address] OF [facility] Tanja 05-22-2025 [facility] Telephone (INTMWS) -------- NATALEE COLLADO ([id number]) 1995 F Date Time Provider Department 05/22/25 JUAN A BALBUENA INTWS During your visit today, we recorded the following information about you: Annita Schumacher MA 05/22/2025 11:55 AM Signed PLEASE SEE PT MESSAGE -- Hi, I have an appointment scheduled in July. Should i have labs and such done? Please advise. Susan Wiley APRN.HERB 05/23/2025 12:58 PM Signed Labs are placed. These need to be fasting. Thank you, Susan Wiley APRN.Nichole Yepez MA 05/23/2025 3:20 PM Signed Notified via [employer]. Nichole Chatman MA Allergies As of Date: 05/22/2025 (No Known Allergies) Date Reviewed: 05/21/2025 Reviewed by: Bushra Gee APRN.CARTON FORMING MACHINE ADJUSTER - Fully Assessed Primary Visit Diagnosis:Obesity, Class I, BMI 30-34.9 [E66.811] Other Visit Diagnoses:Well adult exam [Z00.00] Encounter for lipid screening for cardiovascular disease [Z13.220, Z13.6] Order(s):COMPREHENSIVE METABOLIC PANEL [SQCMP] Order #: [id number] FUTURE COMPLETE BLOOD COUNT AND DIFFERENTIAL [SQCBCDIF] Order #: [id number] FUTURE LIPID PANEL, FASTING [SQLIPB] Order #: [id number] FUTURE HEMOGLOBIN A1C [DTHGN3B] Order #: [id number] FUTURE Prescriptions as of 05/23/2025 - topiramate (TOPAMAX) 25 mg tablet Take 1 tablet by mouth once daily. - metFORMIN (GLUCOPHAGE) 500 mg tablet Take 1 tablet by mouth two times a day with meals. - Phentermine HCl (ADIPEX-P) 37.5 mg tablet Take 1 tablet by mouth once daily for 90 days. BMI 29.49 Patient should start on June 13, 2025. - medroxyPROGESTERone (DEPO-PROVERA) 150 mg/mL Inject 1 mL intramuscularly every 12 weeks. - rizatriptan (MAXALT) 10 mg tablet Take 1 tablet at onset on migraine. If no relief in 4 hours, you are able to take one additional dose. Do not exceed 2 within 24 hours. - traZODone (DESYREL) 50 mg tablet Take 0.5 tablets by mouth at bedtime as needed. For insomnia - Syringe with Needle, Disp, (SYRINGE 3CC/22GX1) 3 mL 22 gauge x 1 use one needle and syringe for IM injection of depoprovera q 12 weeks - magnesium gluconate (MAGONATE) 27 mg (500 mg) tab Take 1 tablet by mouth once daily. - riboflavin, vitamin B2, (VITAMIN B-2) 100 mg tab Take 4 tablets by mouth once daily. - Cholecalciferol, Vitamin D3, 125 mcg (5,000 unit) cap Take 1 capsule by mouth once daily. - Biotin 10,000 mcg cap Take by mouth. Problem List As Of Date 05/22/2025 Noted Resolved Well adult exam [Z00.00] 12/08/2015 Macromastia [N62] 06/20/2018 08/31/2022 Routine physical examination [Z00.00] 07/31/2018 08/31/2022 Gluten intolerance [K90.41] 07/31/2018 05/19/2021 Family history of thyroid disorder [Z83.49] 07/31/2018 Anxiety [F41.9] 07/31/2018 08/31/2022 Fatigue [R53.83] 07/31/2018 08/31/2022 Vitamin D deficiency [E55.9] 07/31/2018 FABIENNE (generalized anxiety disorder) [F41.1] 03/13/2019 Situational insomnia [F51.09] 03/13/2019 Strain of right trapezius muscle [S46.811A] 06/10/2019 08/31/2022 Chronic right shoulder pain [M25.511, G89.29] 03/15/2021 04/22/2021 Obesity, Class I, BMI 30-34.9 [E66.811] 08/31/2022 Class 1 obesity with body mass index (BMI) of 3*05/22/2024 Migraine without aura, intractable, without sta*05/22/2024 Encounter Status:Closed by NICHOLE CHATMAN on 05/23/25 [facility] Coco 05-21-2025 CNOV Office Visit (FAMPWS ) -------- NATALEE COLLADO ([id number]) 1995 F Date Time Provider Department 05/21/25 6:00 PM BUSHRA GEE During your visit today, we recorded the following information about you: Pulse Respiration Blood pressure Weight 110/minute 14/minute 136/74 78.7 kg Bushra Gee, ARVIND.CARTON FORMING MACHINE ADJUSTER 07/25/2025 12:36 PM Addendum This is a 30 year old female who presents today with: 3 month follow up Last OV in February with Chalino: Data reviewed ASSESSMENT/PLAN: 1. Migraine without aura, intractable, without status migrainosus - ICD9: 346.11, ICD10: G43.019 (primary diagnosis) - CONSULT FOR ACUPUNCTURE 2. Obesity, Class I, BMI 30-34.9 - ICD9: 278.00, ICD10: E66.811 - Continue current medication - PHENTERMINE 37.5 MG TABLET Follow-up in 3 months for weight check HISTORY OF PRESENT ILLNESS: Weight Management: - Currently taking phentermine daily; reports not as effective as it was at first - Samina gained 3 lbs since last visit in February; total weight loss of 11 lbs over the past year since weight loss meds initiated - Taking metformin once daily at bedtime - Decreased physical activity due to hot weather; not walking as much as should - has been trying to increase her veggie intake - Drinking lots of water; reports low protein intake. - Engages in intermittent fasting, eating between 12:00 and 21:00 besides creamer in her coffee - Snacks at work, often from vending machines. But doesn't buy those things for at home - Has not tried protein shakes; open to trying [employer] or [employer]. Weight loss meds: Metformin since November (1 tab) Phentermine since May 2024 Last month was first time she's gained since being on the meds Denies any side effects from meds, no GI upset , no palpitations, no difficulty sleeping Most Recent 05/23/22 - 05/21/25 05/22/24 16:47 08/21/24 16:30 10/31/24 15:59 11/22/24 08:10 02/21/25 09:17 04/28/25 12:23 05/21/25 17:48 Weight 173 lb 9.6 oz (78.7 kg) 05/21/25 17:48 184 lb (83.5 kg) 176 lb 5.9 oz (80 kg) 174 lb (78.9 kg) 172 lb 6.4 oz (78.2 kg) 170 lb 9.6 oz (77.4 kg) 172 lb 9.9 oz (78.3 kg) 173 lb 9.6 oz (78.7 kg) PAST MEDICAL HISTORY: PAST MEDICAL HISTORY Diagnosis Date Anxiety state PAST SURGICAL HISTORY Procedure Laterality Date PAST SURGICAL HISTORY OF 04/06/2013 [place] teeth REDUCTION OF LARGE BREAST 2019 ALLERGIES Patient has no known allergies. MEDICATIONS Current Outpatient Medications Medication Sig medroxyPROGESTERone (DEPO-PROVERA) 150 mg/mL Inject 1 mL intramuscularly every 12 weeks. rizatriptan (MAXALT) 10 mg tablet Take 1 tablet at onset on migraine. If no relief in 4 hours, you are able to take one additional dose. Do not exceed 2 within 24 hours. traZODone (DESYREL) 50 mg tablet Take 0.5 tablets by mouth at bedtime as needed. For insomnia Syringe with Needle, Disp, (SYRINGE 3CC/22GX1) 3 mL 22 gauge x 1 use one needle and syringe for IM injection of depoprovera q 12 weeks magnesium gluconate (MAGONATE) 27 mg (500 mg) tab Take 1 tablet by mouth once daily. riboflavin, vitamin B2, (VITAMIN B-2) 100 mg tab Take 4 tablets by mouth once daily. Cholecalciferol, Vitamin D3, 125 mcg (5,000 unit) cap Take 1 capsule by mouth once daily. Biotin 10,000 mcg cap Take by mouth. topiramate (TOPAMAX) 25 mg tablet Take 1 tablet by mouth once daily. metFORMIN (GLUCOPHAGE) 500 mg tablet Take 1 tablet by mouth two times a day with meals. [START ON 06/13/2025] Phentermine HCl (ADIPEX-P) 37.5 mg tablet Take 1 tablet by mouth once daily for 90 days. BMI 29.49 Patient should start on June 13, 2025. No current facility-administered medications for this visit. FAMILY HISTORY Problem Relation Age of Onset Arthritis Mother Heart Mother 53 Asthma Sister other (endometriosis) Sister Osteoporosis Maternal Grandmother Thyroid Maternal Grandmother thyroidectomy Thyroid Maternal Grandfather Heart Maternal Grandfather 50 Diabetes Paternal Grandmother Heart Maternal Aunt 40 Stroke Maternal Aunt 60 Social History Tobacco Use Smoking status: Never Smokeless tobacco: Never Vaping Use Vaping status: Never Used Substance Use Topics Alcohol use: Yes Comment: rare wine Drug use: No REVIEW OF SYSTEMS See HPI EXAM: BP 136/74 (BP Site: Left Arm, BP Cuff Size: Large Adult) Pulse 110 Resp 14 Wt 78.7 kg (173 lb 9.6 oz) LMP 03/15/2023 (Approximate) SpO2 98% BMI 30.00 kg/m? PHYSICAL EXAM: General Appearance: Well appearing, alert, in no acute distress, well-hydrated, well nourished.. Lungs: Lungs clear to auscultation. No wheezing, rhonchi, rales.. Heart: RRR without murmur, gallop, or rubs. No ectopy ASSESSMENT/PLAN: 1. Obesity, Class I, BMI 30-34.9 - ICD9: 278.00, ICD10: E66.811 Weight increasing and Stable - Pharmacological intervention, - Increase Metformin, and - A (more content not included)... Normal [facility] CNOVon 04-28-2025 [facility] -------- FILIBERTOHERMINIO MERLOSAMAIRANI Hdez ([id number]) 1995 F Date Time Provider Department 04/28/25 12:15 PM BJ HIGH [facility] During your visit today, we recorded the following information about you: Temperature Pulse Respiration Blood pressure 98.9 degrees 104/minute 16/minute 120/70 Weight 78.3 kg Bj High MD 04/28/2025 12:46 PM Signed [facility] Subjective Nataleeamairani Collado is a 30 year old female. Patient presents with: Headache: x 3 days Headache: Duration: waxing and waning the last 3 days Location: right parietal (typical location for her migraines) Character: throbbing 5-8/10 Radiation: a little to the occiput Aggravating: light bothers her some Relieving: Maxalt Pain relievers: Advil and Tylenol Associated: history of migraine Pertinent negatives: Denies numbness, weakness, vision change, nausea Headache Review of Systems Neurological: Positive for headaches. Objective BP 120/70 Pulse 104 Temp 37.2 ?C (98.9 ?F) Resp 16 Wt 78.3 kg (172 lb 9.9 oz) LMP 03/15/2023 (Approximate) SpO2 98% BMI 29.83 kg/m? Physical Exam Constitutional: General: She is not in acute distress. HENT: Right Ear: Tympanic membrane and ear canal normal. Left Ear: Tympanic membrane and ear canal normal. Nose: No congestion. Right Sinus: No maxillary sinus tenderness or frontal sinus tenderness. Left Sinus: No maxillary sinus tenderness or frontal sinus tenderness. Mouth/Throat: Mouth: Mucous membranes are moist. Pharynx: No oropharyngeal exudate or posterior oropharyngeal erythema. Eyes: Extraocular Movements: Extraocular movements intact. Conjunctiva/sclera: Conjunctivae normal. Pupils: Pupils are equal, round, and reactive to light. Cardiovascular: Rate and Rhythm: Normal rate and regular rhythm. Heart sounds: No murmur heard. Pulmonary: Effort: No respiratory distress. Breath sounds: No wheezing, rhonchi or rales. Musculoskeletal: Cervical back: Neck supple. Lymphadenopathy: Cervical: No cervical adenopathy. Neurological: General: No focal deficit present. Mental Status: She is alert and oriented to person, place, and time. Cranial Nerves: No cranial nerve deficit. Motor: No weakness. Gait: Gait normal. Deep Tendon Reflexes: Reflexes normal. Psychiatric: Mood and Affect: Mood normal. Thought Content: Thought content normal. {ASSESSMENT/PLAN: 1. Migraine without aura, intractable, without status migrainosus - ICD9: 346.11, ICD10: G43.019 Treat with steroid taper. - PREDNISONE 10 MG TABLET - Potential steroid side effects discussed including: Increased hunger, fluid retention, increased energy, sleep disturbance, mood change, elevated sugar levels. Avoid NSAID's while on steroid treatment (Aleve, Motrin, Advil, ibuprofen, or naproxen). May take acetaminophen (tylenol) as needed for pain relief. She may take Maxalt as prescribed. Seek evaluation in the ER for worsening headache, worsening dizziness, worsening nausea, vision change, numbness, weakness, or speech difficulty. Follow-up with primary care if migraine intensity or frequency continuous to be elevated Bj High MD Differential Diagnoses - migraine headache is more likely for the following reason(s): typical character and location to prior migraines, suggested by HANDP - increased intracranial pressure is less likely for the following reason(s): normal neurological exam Procedures Allergies As of Date: 04/28/2025 (No Known Allergies) Date Reviewed: 04/28/2025 Reviewed by: Yanely Stokes MA - Fully Assessed Reason for Visit: Headache [52] Cmt: x 3 days Primary Visit Diagnosis:Migraine without aura, intractable, without status migrainosus [G43.019] Order(s):predniSONE (DELTASONE) 10 mg tabletTake 5 tablets by mouth once daily for 1 day, THEN 4 tablets once daily for 1 day, THEN 3 tablets once daily for 1 day, THEN 2 tablets once daily for 1 day, THEN 1 tablet once daily for 1 day.Disp: 15 tabletRfl: 0 Prescriptions as of 04/28/2025 - predniSONE (DELTASONE) 10 mg tablet Take 5 tablets by mouth once daily for 1 day, THEN 4 tablets once daily for 1 day, THEN 3 tablets once daily for 1 day, THEN 2 tablets once daily for 1 day, THEN 1 tablet once daily for 1 day. - Phentermine HCl (ADIPEX-P) 37.5 mg tablet Take 1 tablet by mouth once daily for 90 days. BMI 29.49 Patient should start on March 03, 2025. - metFORMIN (GLUCOPHAGE) 500 mg tablet Take 1 tablet by mouth daily with dinner. - medroxyPROGESTERone (DEPO-PROVERA) 150 mg/mL Inject 1 mL intramuscularly every 12 weeks. - rizatriptan (MAXALT) 10 mg tablet Take 1 tablet at onset on migraine. If no relief in 4 hours, you are able to take one additional dose. Do not exceed 2 within 24 hours. - traZODone (DESYREL) 50 mg tablet Take 0.5 tablets by mouth at bedtime a (more content not included)... Normal [facility] CNOVon 02-21-2025 CNOV Office Visit (FAMPWS ) -------- NATALEE COLLADO ([id number]) 1995 F Date Time Provider Department 02/21/25 9:20 AM CHALINO BOB During your visit today, we recorded the following information about you: Pulse Blood pressure Weight 105/minute 118/78 77.4 kg Chalino Bob APRN.CNP 02/21/2025 10:08 AM Signed Chief Complaint Patient presents with: F/U 3 Month: Weight- adipex HPI Natalee Collado is a 29 year old female who presents here today for Above Complaints.. Adipex 37.5 mg- tolerating well. Sometimes feels jittery when she takes this, and feels better when she eats something and drinks water. Exercise- tries to keep active, walking her dog. Most Recent 02/23/22 - 02/21/25 10/04/23 16:21 03/06/24 12:20 05/22/24 16:47 08/21/24 16:30 10/31/24 15:59 11/22/24 08:10 02/21/25 09:17 Weight 170 lb 9.6 oz (77.4 kg) 02/21/25 09:17 183 lb 12.8 oz (83.4 kg) 185 lb 12.8 oz (84.3 kg) 184 lb (83.5 kg) 176 lb 5.9 oz (80 kg) 174 lb (78.9 kg) 172 lb 6.4 oz (78.2 kg) 170 lb 9.6 oz (77.4 kg) Migraines- Have been increasing in frequency d/t the weather changes. Taking Maxalt 10mg at onset of migraine which helps Pt would like to try acupuncture for migraines- insurance needs a prior authorization Past medical history, appointments, medications, allergies reviewed. Previous Medical History PAST MEDICAL HISTORY Diagnosis Date Anxiety state Previous Surgical History PAST SURGICAL HISTORY Procedure Laterality Date PAST SURGICAL HISTORY OF 04/06/2013 [place] teeth REDUCTION OF LARGE BREAST 2019 Family History FAMILY HISTORY Problem Relation Age of Onset Arthritis Mother Heart Mother 53 Asthma Sister other (endometriosis) Sister Osteoporosis Maternal Grandmother Thyroid Maternal Grandmother thyroidectomy Thyroid Maternal Grandfather Heart Maternal Grandfather 50 Diabetes Paternal Grandmother Heart Maternal Aunt 40 Stroke Maternal Aunt 60 Patient Allergies ALLERGIES No Known Allergies Current Medications Current Outpatient Medications on File Prior to Visit Medication Sig Phentermine HCl (ADIPEX-P) 37.5 mg tablet Take 1 tablet by mouth once daily for 90 days. BMI 30.48 Patient should start on December 06, 2024. metFORMIN (GLUCOPHAGE) 500 mg tablet Take 1 tablet by mouth daily with dinner. medroxyPROGESTERone (DEPO-PROVERA) 150 mg/mL Inject 1 mL intramuscularly every 12 weeks. rizatriptan (MAXALT) 10 mg tablet Take 1 tablet at onset on migraine. If no relief in 4 hours, you are able to take one additional dose. Do not exceed 2 within 24 hours. traZODone (DESYREL) 50 mg tablet Take 0.5 tablets by mouth at bedtime as needed. For insomnia Syringe with Needle, Disp, (SYRINGE 3CC/22GX1) 3 mL 22 gauge x 1 use one needle and syringe for IM injection of depoprovera q 12 weeks escitalopram oxalate (LEXAPRO) 10 mg tablet Take 1 tablet by mouth daily at bedtime. (Patient not taking: Reported on 02/21/2025) magnesium gluconate (MAGONATE) 27 mg (500 mg) tab Take 1 tablet by mouth once daily. riboflavin, vitamin B2, (VITAMIN B-2) 100 mg tab Take 4 tablets by mouth once daily. Cholecalciferol, Vitamin D3, 125 mcg (5,000 unit) cap Take 1 capsule by mouth once daily. Biotin 10,000 mcg cap Take by mouth. No current facility-administered medications on file prior to visit. Social History Social History Tobacco Use Smoking status: Never Smokeless tobacco: Never Vaping Use Vaping status: Never Used Substance Use Topics Alcohol use: Yes Comment: rare wine Drug use: No Review of Symptoms REVIEW OF SYSTEMS See HPI, otherwise negative EXAM: BP 118/78 (BP Site: Left Arm, BP Position: Sitting, BP Cuff Size: Regular Adult) Pulse 105 Wt 77.4 kg (170 lb 9.6 oz) LMP 03/15/2023 (Approximate) SpO2 99% BMI 29.49 kg/m? General Appearance: Well appearing, alert, in no acute distress, well-hydrated, well nourished.. Lungs: Lungs clear to auscultation. No wheezing, rhonchi, rales.. Heart: RRR without murmur, gallop, or rubs. No ectopy. Psychiatric: pleasant, cooperative Health Maintenance List Influenza Vaccine(1) due on 05/05/2025 Hepatitis C Screening due on 08/21/2025 HIV Screening due on 08/21/2025 Covid-19 Vaccine() due on 08/21/2025 Depression Screening due on 11/22/2025 Cervical Cancer Screening due on 09/06/2028 DTaP,Tdap,Td Vaccine(7 - Td or Tdap) due on 12/27/2031 Hepatitis B Vaccine Completed Data reviewed ASSESSMENT/PLAN: 1. Migraine without aura, intractable, without status migrainosus - ICD9: 346.11, ICD10: G43.019 (primary diagnosis) - CONSULT FOR ACUPUNCTURE 2. Obesity, Class I, BMI 30-34.9 - ICD9: 278.00, ICD10: E66.811 - Continue current medication - PHENTERMINE 37.5 MG TABLET Follow-up in 3 months for weight check [place] PDMP website checked and validated. All prescriptions have (more content not included)... Normal [facility] NATALEE COLLADO ([id number]) 1995 F Date Time Provider Department 02/21/25 JUAN A BALBUENA 4CQ During your visit today, we recorded the following information about you: Lilly Dowd 02/21/2025 10:27 AM Signed Please fax acupuncture order to [facility] in [place] [facility]. Fax is [phone] Courtney Potts MA 02/21/2025 2:26 PM Signed Order and demographic has been printed and faxed to information below. Courtney Potts MA Allergies As of Date: 02/21/2025 (No Known Allergies) Date Reviewed: 02/21/2025 Reviewed by: Chalino Bob APRN.CARTON FORMING MACHINE ADJUSTER - Fully Assessed Reason for Visit: Orders [681] Prescriptions as of 02/21/2025 - Phentermine HCl (ADIPEX-P) 37.5 mg tablet Take 1 tablet by mouth once daily for 90 days. BMI 29.49 Patient should start on March 03, 2025. - metFORMIN (GLUCOPHAGE) 500 mg tablet Take 1 tablet by mouth daily with dinner. - medroxyPROGESTERone (DEPO-PROVERA) 150 mg/mL Inject 1 mL intramuscularly every 12 weeks. - rizatriptan (MAXALT) 10 mg tablet Take 1 tablet at onset on migraine. If no relief in 4 hours, you are able to take one additional dose. Do not exceed 2 within 24 hours. - traZODone (DESYREL) 50 mg tablet Take 0.5 tablets by mouth at bedtime as needed. For insomnia - Syringe with Needle, Disp, (SYRINGE 3CC/22GX1) 3 mL 22 gauge x 1 use one needle and syringe for IM injection of depoprovera q 12 weeks - magnesium gluconate (MAGONATE) 27 mg (500 mg) tab Take 1 tablet by mouth once daily. - riboflavin, vitamin B2, (VITAMIN B-2) 100 mg tab Take 4 tablets by mouth once daily. - Cholecalciferol, Vitamin D3, 125 mcg (5,000 unit) cap Take 1 capsule by mouth once daily. - Biotin 10,000 mcg cap Take by mouth. Problem List As Of Date 02/21/2025 Noted Resolved Well adult exam [Z00.00] 12/08/2015 Macromastia [N62] 06/20/2018 08/31/2022 Routine physical examination [Z00.00] 07/31/2018 08/31/2022 Gluten intolerance [K90.41] 07/31/2018 05/19/2021 Family history of thyroid disorder [Z83.49] 07/31/2018 Anxiety [F41.9] 07/31/2018 08/31/2022 Fatigue [R53.83] 07/31/2018 08/31/2022 Vitamin D deficiency [E55.9] 07/31/2018 FABIENNE (generalized anxiety disorder) [F41.1] 03/13/2019 Situational insomnia [F51.09] 03/13/2019 Strain of right trapezius muscle [S46.811A] 06/10/2019 08/31/2022 Chronic right shoulder pain [M25.511, G89.29] 03/15/2021 04/22/2021 Obesity, Class I, BMI 30-34.9 [E66.811] 08/31/2022 Class 1 obesity with body mass index (BMI) of 3*05/22/2024 Migraine without aura, intractable, without sta*05/22/2024 Encounter Status:Closed by COURTNEY POTTS on 02/21/25 [facility] CNPOmayra 12-31-2024 CNPN Telephone (FAMPWS) -------- NATALEE COLLADO ([id number]) 1995 F Date Time Provider Department 12/31/24 [facility] During your visit today, we recorded the following information about you: Radha Perrin, RN 12/31/2024 12:39 PM Signed Pt reports she is taking Adipex-P 37.5 mg daily. [facility]. Reports she is leaving town. Going to [place] for her work. Will run out of adipex before the trip is over. [facility] tells her the earliest they can fill adipex is 01-07-25. Pt is leaving for her trip on 01-04-25. Asking if pcp can send order to [facility] stating it is ok for her to [facility] adipex refill early on 01-05-24? Patient states insurance is not an issue as she pays out of pocket for the medication. Please advise and phone pt with reply. Scarlett Bob, MAYA 01/01/2025 10:23 AM Signed Pt called in asking about medication and if provider would call in to allow her to be able to [facility] early. Please call and advise. Juan A Balbuena, 01/01/2025 3:37 PM Signed Ok to fill on 01/04/25, please notify pharmacy Juan A Balbuena, DO HarrisonDenia garciaMANUEL 01/01/2025 4:38 PM Signed [facility]oned [facility] spoke to Darby and went over notes below from Dr Balbuena with understanding. Phoned patient aware PCP said she could get rx on 01/04/2025 and have notified [facility] already with understanding. Allergies As of Date: 12/31/2024 (No Known Allergies) Date Reviewed: 11/22/2024 Reviewed by: Susan Wiley APRN.CARTON FORMING MACHINE ADJUSTER - Fully Assessed Reason for Visit: Medication Problem [65] Prescriptions as of 01/01/2025 - Phentermine HCl (ADIPEX-P) 37.5 mg tablet Take 1 tablet by mouth once daily for 90 days. BMI 30.48 Patient should start on December 06, 2024. - metFORMIN (GLUCOPHAGE) 500 mg tablet Take 1 tablet by mouth daily with dinner. - medroxyPROGESTERone (DEPO-PROVERA) 150 mg/mL Inject 1 mL intramuscularly every 12 weeks. - rizatriptan (MAXALT) 10 mg tablet Take 1 tablet at onset on migraine. If no relief in 4 hours, you are able to take one additional dose. Do not exceed 2 within 24 hours. - traZODone (DESYREL) 50 mg tablet Take 0.5 tablets by mouth at bedtime as needed. For insomnia - Syringe with Needle, Disp, (SYRINGE 3CC/22GX1) 3 mL 22 gauge x 1 use one needle and syringe for IM injection of depoprovera q 12 weeks - escitalopram oxalate (LEXAPRO) 10 mg tablet Take 1 tablet by mouth daily at bedtime. - magnesium gluconate (MAGONATE) 27 mg (500 mg) tab Take 1 tablet by mouth once daily. - riboflavin, vitamin B2, (VITAMIN B-2) 100 mg tab Take 4 tablets by mouth once daily. - Cholecalciferol, Vitamin D3, 125 mcg (5,000 unit) cap Take 1 capsule by mouth once daily. - Biotin 10,000 mcg cap Take by mouth. Problem List As Of Date 12/31/2024 Noted Resolved Well adult exam [Z00.00] 12/08/2015 Macromastia [N62] 06/20/2018 08/31/2022 Routine physical examination [Z00.00] 07/31/2018 08/31/2022 Gluten intolerance [K90.41] 07/31/2018 05/19/2021 Family history of thyroid disorder [Z83.49] 07/31/2018 Anxiety [F41.9] 07/31/2018 08/31/2022 Fatigue [R53.83] 07/31/2018 08/31/2022 Vitamin D deficiency [E55.9] 07/31/2018 FABIENNE (generalized anxiety disorder) [F41.1] 03/13/2019 Situational insomnia [F51.09] 03/13/2019 Strain of right trapezius muscle [S46.811A] 06/10/2019 08/31/2022 Chronic right shoulder pain [M25.511, G89.29] 03/15/2021 04/22/2021 Obesity, Class I, BMI 30-34.9 [E66.811] 08/31/2022 Class 1 obesity with body mass index (BMI) of 3*05/22/2024 Migraine without aura, intractable, without sta*05/22/2024 Encounter Status:Closed by DENIA LUNA on 01/01/25 [facility] CNOVon 11-22-2024 CNOV Office Visit (DEENAPWS ) -------- NATALEE COLLADO ([id number]) 1995 F Date Time Provider Department 11/22/24 8:20 AM SUSAN WILEY FAMPLOGAN During your visit today, we recorded the following information about you: Pulse Respiration Blood pressure Weight 95/minute 12/minute 128/68 78.2 kg Susan Wiley APRN.CARTON FORMING MACHINE ADJUSTER 11/22/2024 8:43 AM Signed Chief Complaint Patient presents with: Follow Up HPI Natalee Collado is a 29 year old female who presents here today for Above Complaints. Samina is an established patient of Dr. Balbuena, and myself. Concerns today... Weight management: Has been on adipex regimen x 6 months. Down 4 lbs since last visit. Has lost a total of about 8-9 lbs since starting adipex. Goal is to lose 15 lbs total. Has noticed clothes fitting better/looser R shoulder discomfort x a few days. Feels like muscle is tight. Some discomfort with movement of R arm. Has been massaging area with tennis ball which does help. No other concerns or complaints. Past medical history, appointments, medications, allergies reviewed. Previous Medical History PAST MEDICAL HISTORY Diagnosis Date Anxiety state Previous Surgical History PAST SURGICAL HISTORY Procedure Laterality Date PAST SURGICAL HISTORY OF 04/06/2013 U[place]es teeth REDUCTION OF LARGE BREAST 2019 Family History FAMILY HISTORY Problem Relation Age of Onset Arthritis Mother Heart Mother 53 Asthma Sister other (endometriosis) Sister Osteoporosis Maternal Grandmother Thyroid Maternal Grandmother thyroidectomy Thyroid Maternal Grandfather Heart Maternal Grandfather 50 Diabetes Paternal Grandmother Heart Maternal Aunt 40 Stroke Maternal Aunt 60 Patient Allergies ALLERGIES No Known Allergies Current Medications Current Outpatient Medications on File Prior to Visit Medication Sig medroxyPROGESTERone (DEPO-PROVERA) 150 mg/mL Inject 1 mL intramuscularly every 12 weeks. Phentermine HCl (ADIPEX-P) 37.5 mg tablet Take 1 tablet by mouth once daily for 90 days. BMI 30.48 rizatriptan (MAXALT) 10 mg tablet Take 1 tablet at onset on migraine. If no relief in 4 hours, you are able to take one additional dose. Do not exceed 2 within 24 hours. traZODone (DESYREL) 50 mg tablet Take 0.5 tablets by mouth at bedtime as needed. For insomnia Syringe with Needle, Disp, (SYRINGE 3CC/22GX1) 3 mL 22 gauge x 1 use one needle and syringe for IM injection of depoprovera q 12 weeks metFORMIN (GLUCOPHAGE) 500 mg tablet Take 1 tablet by mouth daily with dinner. escitalopram oxalate (LEXAPRO) 10 mg tablet Take 1 tablet by mouth daily at bedtime. magnesium gluconate (MAGONATE) 27 mg (500 mg) tab Take 1 tablet by mouth once daily. riboflavin, vitamin B2, (VITAMIN B-2) 100 mg tab Take 4 tablets by mouth once daily. Cholecalciferol, Vitamin D3, 125 mcg (5,000 unit) cap Take 1 capsule by mouth once daily. Biotin 10,000 mcg cap Take by mouth. No current facility-administered medications on file prior to visit. Social History Social History Tobacco Use Smoking status: Never Smokeless tobacco: Never Vaping Use Vaping status: Never Used Substance Use Topics Alcohol use: Yes Comment: rare wine Drug use: No REVIEW OF SYSTEMS: as above Reviewed relevant PMHx, PSHx, Social Hx, current medications and allergies. Review of Symptoms REVIEW OF SYSTEMS See HPI. EXAM: BP 128/68 (BP Site: Left Arm, BP Position: Sitting, BP Cuff Size: Large Adult) Pulse 95 Resp 12 Wt 78.2 kg (172 lb 6.4 oz) LMP 03/15/2023 (Approximate) SpO2 99% BMI 29.80 kg/m? General Appearance: Well appearing, alert, in no acute distress, well-hydrated, well nourished.. Skin: Skin color, texture, turgor normal, no suspicious rashes or lesions. Head: Normocephalic, no masses, lesions, tenderness or abnormalities. Lungs: Lungs clear to auscultation. No wheezing, rhonchi, rales.. Heart: RRR without murmur, gallop, or rubs. No ectopy. Extremities: No deformities, edema, skin discoloration, clubbing or cyanosis. Good capillary refill. , Positive findings: joint location: on right shoulder painful movement. Health Maintenance List Depression Screening Never done Influenza Vaccine(1) due on 05/05/2025 Hepatitis C Screening due on 08/21/2025 HIV Screening due on 08/21/2025 Covid-19 Vaccine( season) due on 08/21/2025 Cervical Cancer Screening due on 09/06/2028 DTaP,Tdap,Td Vaccine(7 - Td or Tdap) due on 12/27/2031 Hepatitis B Vaccine Completed HPV Vaccine Completed ASSESSMENT/PLAN: 1. Obesity, Class I, BMI 30-34.9 - ICD9: 278.00, ICD10: E66.811 (primary diagnosis) Stable. Weight decreasing. Continue on adipex regimen. RTO in 3 months - PHENTERMINE 37.5 MG TABLET 2. Screening for depression - ICD9: V79.0, ICD10: Z13.31 - DEPRESSION SCREENING 3. Class 1 obesity with body mass ind (more content not included)... Normal [facility] BACTERIAL VAGINOSIS NAATon 1 01-01-2024 Lactobacillus crispatus+gasseri+clifford enii + Gardnerella vaginalis + Atopobium vaginae rRNA DEL+probe Ql (Vag fld) Not detected Normal Not detected [facility] Comment on above: Order Comment: Speci men Type: SWABOrdering Facility: [facility] Address: [address] [place] [address] Performed By: #### B VAMP, CVTV ####[facility] LABCLIA [id number] [place] [address] [place] MILAGROS/TRICHOMONAS NAATon 1 01-01-2024 C. glabrata RNA DEL+probe Ql (Vag fld) Not detected Normal Not detected [facility] Comment on above: Order Comment: Speci men Type: SWABOrdering Facility: [facility] Address: [address] [place] [address] Performed By: #### B VAMP, CVTV ####[facility] LABCLIA [id number] [place] [address] [place] Milagros sp DNA DEL+probe Ql (Vag fld) Not detected Normal Not detected [facility] Comment on above: Order Comment: Speci men Type: SWABOrdering Facility: [facility] Address: [address] [place] [address] Result Comment: The Milagros species group target includes C. albicans, C. tropicalis, C. parapsilosis, and C. dubliniensis. Performed By: #### B VAMP, CVTV ####[facility] LABCLIA [id number] [place] [address] [place] T. vaginalis DNA DEL+probe Ql (Unsp spec) Not detected Normal Not detected [facility] Comment on above: Order Comment: Speci men Type: SWABOrdering Facility: [facility] Address: [address] [place] [address] Performed By: #### B VAMP, CVTV ####[facility] LABROSEMARIEIA [id number] [place] [address] [place] CNOVon 10-31-2024 CNOV Office Visit (OBGYWM ) -------- NATALEE COLLADO ([id number]) 1995 F Date Time Provider Department 10/31/24 4:00 PM JAYDE BANGURA OBGYWM During your visit today, we recorded the following information about you: Blood pressure Weight 110/74 78.9 kg Jayde Bangura MD 10/31/2024 4:22 PM Signed Samina is a 29 year old who presents for an annual gynecologic exam without complaints. On depo Still get period: rare Bleeding amount bothersome: No Bleeding between periods: No Period symptoms: Acne; Cramps control frequency: Always HPV vaccine: Yes; 09/11/24 HPV:N/A Last pap smear: History of abnormal pap: No, all prior PAP smears have been normal Bothersome pelvic pain: No OB History T0 L0 SAB0 IAB0 Ectopic0 Multiple0 Live Births0 Casino Manager History LMP: 03/15/2023 (Approximate), Injection Age at Menarche: 10 Age at First : Age at Menopause: Casino Manager History Comments: Sexual Activity: Yes; Male Contraception: Condom, Injection Menstrual Tracking History Flowsheet Row Office Visit from 10/31/2024 in OB/Gynecology Period Cycle (Days) 3 Period Duration (Days) 4 Menstrual Flow Moderate PAST MEDICAL HISTORY Diagnosis Date Anxiety state PAST SURGICAL HISTORY Procedure Laterality Date PAST SURGICAL HISTORY OF 04/06/2013 [place]es teeth REDUCTION OF LARGE BREAST 2019 FAMILY HISTORY Problem Relation Age of Onset Arthritis Mother Heart Mother 53 Asthma Sister other (endometriosis) Sister Osteoporosis Maternal Grandmother Thyroid Maternal Grandmother thyroidectomy Thyroid Maternal Grandfather Heart Maternal Grandfather 50 Diabetes Paternal Grandmother Heart Maternal Aunt 40 Stroke Maternal Aunt 60 SOCIAL HISTORY Social History Tobacco Use Smoking status: Never Smokeless tobacco: Never Vaping Use Vaping status: Never Used Substance Use Topics Alcohol use: Yes Comment: rare wine Drug use: No REVIEW OF SYSTEMS Abdomen: No abdominal pain, nausea, vomiting, diarrhea, or constipation. No bloating, early satiety, indigestion, or increased flatulence. Bladder: No dysuria, gross hematuria, urinary frequency, urinary urgency, or incontinence. Breast: No breast lumps, nipple d/c, overlying skin changes, redness or skin retraction. Allergies and current medication updated:Yes SENSITIVE EXAM: The sensitive examination was discussed with the Patient or Patient's Authorized Doctor Of Naturopathic Medicine. As applicable, any other physician, advance practice provider, medical student, or other health professional student that will be observing or involved in the sensitive examination for educational or training purposes was discussed with the Patient or Authorized Doctor Of Naturopathic Medicine. The Patient or Authorized Doctor Of Naturopathic Medicine has agreed to proceed with the sensitive examination. (Sensitive examination includes inspection and/or palpation of the breasts, pelvis, prostate and anorectal regions). EXAM: BP 110/74 Wt 174 lb (78.9kg) LMP 03/15/2023 GENERAL: pleasant, female in no apparent distress HEENT: Normocephalic, atraumatic, mucus membranes moist, and no lesions NECK: Supple, full range of motion, no adenopathy, and thyroid normal DERMATOLOGY: Normal, without lesions, non-icteric, and non-hirsute BREAST: soft, non-tender, symmetric, no dominant mass, normal nipple-areolar complex, no lymphadenopathy, and no nipple discharge CHEST: Normal inspiratory effort ABDOMEN: soft, non-tender, and no masses PELVIC: external genitalia normal, normal Bartholin's glands, urethra, [place]'s glands, no vulvar lesions, no cervical lesions, good vaginal support, physiologic discharge present, normal appearing perineal body and perianal region BIMANUAL: uterus normal size, shape and consistency, no adnexal masses, and non-tender RECTOVAGINAL: deferred. NEURO: alert and oriented x3,exam grossly non-focal EXTREMITIES: normal ASSESSMENT/PLAN: 1) Health maintenance: Pap/HPV up to date. 2) Contraception: Depo Provera. Contraceptive options reviewed and information provided. 3) STD screening: Declined STD check. 4) Follow up one year or sooner as needed Jayde L Moy, MD Roxann, Keesha, MA 10/31/2024 4:38 PM Signed Addended by: KEESHA MCGOVERN on: 10/31/2024 04:38 PM Modules accepted: Orders Jayde Bangura MD 10/31/2024 4:45 PM Signed Addended by: JAYDE BANGURA on: 10/31/2024 04:45 PM Modules accepted: Orders Allergies As of Date: 10/31/2024 (No Known Allergies) Date Reviewed: 10/31/2024 Reviewed by: Jayde Bangura MD - Fully Assessed Reason for Visit: Yearly Exam [187] Primary Visit Diagnosis:Encounter for gynecological examination (general) (routine) without abnormal findings [Z01.419] Other Visit Diagnoses:Encounter for surveillance of injectable contraceptive [Z30.42] Vaginal discharge [ (more content not included)... Normal [facility] CNOVon 08-21-2024 [facility] NATALEE COLLADO ([id number]) 1995 F Date Time Provider Department 08/21/24 4:20 PM [facility] During your visit today, we recorded the following information about you: Pulse Respiration Blood pressure Weight 78/minute 16/minute 118/76 80 kg Chalino Bob APRN.CNP 08/21/2024 5:44 PM Signed Chief Complaint Patient presents with: Weight Check HPI Natalee Collado is a 29 year old female who presents here today for Above Complaints.. Adipex, Lexapro, metformin-when first started taking this felt weird; just a little off. Tolerating well now, no concerning side effects. Does notice pants are a little looser. Diet-trying to drink more water, eat a little healthier. Definitely notices a decreased appetite. Exercise-outside walking more with her dog. Insomnia-trazodone, takes rarely at bedtime prn. Past medical history, appointments, medications, allergies reviewed. Previous Medical History PAST MEDICAL HISTORY Diagnosis Date Anxiety state Previous Surgical History PAST SURGICAL HISTORY Procedure Laterality Date PAST SURGICAL HISTORY OF 04/06/2013 [place]es teeth REDUCTION OF LARGE BREAST 2019 Family History FAMILY HISTORY Problem Relation Age of Onset Arthritis Mother Heart Mother 53 Asthma Sister other (endometriosis) Sister Osteoporosis Maternal Grandmother Thyroid Maternal Grandmother thyroidectomy Thyroid Maternal Grandfather Heart Maternal Grandfather 50 Diabetes Paternal Grandmother Heart Maternal Aunt 40 Stroke Maternal Aunt 60 Patient Allergies ALLERGIES No Known Allergies Current Medications Current Outpatient Medications on File Prior to Visit Medication Sig medroxyPROGESTERone (DEPO-PROVERA) 150 mg/mL Inject 1 mL intramuscularly every 12 weeks. Syringe with Needle, Disp, (SYRINGE 3CC/22GX1) 3 mL 22 gauge x 1 use one needle and syringe for IM injection of depoprovera q 12 weeks metFORMIN (GLUCOPHAGE) 500 mg tablet Take 1 tablet by mouth daily with dinner. rizatriptan (MAXALT) 10 mg tablet Take 1 tablet at onset on migraine. If no relief in 4 hours, you are able to take one additional dose. Do not exceed 2 within 24 hours. escitalopram oxalate (LEXAPRO) 10 mg tablet Take 1 tablet by mouth daily at bedtime. magnesium gluconate (MAGONATE) 27 mg (500 mg) tab Take 1 tablet by mouth once daily. riboflavin, vitamin B2, (VITAMIN B-2) 100 mg tab Take 4 tablets by mouth once daily. Cholecalciferol, Vitamin D3, 125 mcg (5,000 unit) cap Take 1 capsule by mouth once daily. Biotin 10,000 mcg cap Take by mouth. traZODone (DESYREL) 50 mg tablet Take 1 tablet by mouth daily at bedtime. For insomnia No current facility-administered medications on file prior to visit. Social History Social History Tobacco Use Smoking status: Never Smokeless tobacco: Never Vaping Use Vaping status: Never Used Substance Use Topics Alcohol use: Yes Comment: rare wine Drug use: No Review of Symptoms REVIEW OF SYSTEMS See HPI, otherwise negative EXAM: BP 118/76 (BP Site: Left Arm, BP Position: Sitting, BP Cuff Size: Regular Adult) Pulse 78 Resp 16 Wt 80 kg (176 lb 5.9 oz) LMP 03/15/2023 (Approximate) SpO2 98% BMI 30.48 kg/m? General Appearance: Well appearing, alert, in no acute distress, well-hydrated, well nourished. and Obese. Lungs: Lungs clear to auscultation. No wheezing, rhonchi, rales.. Heart: RRR without murmur, gallop, or rubs. No ectopy. Psychiatric: pleasant, cooperative. Health Maintenance List Depression Screening Never done Hepatitis C Screening Never done HIV Screening Never done Influenza Vaccine(1) due on 07/07/2024 Covid-19 Vaccine( - season) Never done Cervical Cancer Screening due on 09/06/2028 DTaP,Tdap,Td Vaccine(7 - Td or Tdap) due on 12/27/2031 Hepatitis B Vaccine Completed HPV Vaccine Completed Data reviewed Previous records, office notes, PDMP report PDMP website checked and validated. All prescriptions have been APPROPRIATELY filled. No suspicious activity was identified. 08/21/2024 by Chalino Bob CNP. ASSESSMENT/PLAN: 1. Class 1 obesity with body mass index (BMI) of 30.0 to 30.9 in adult, unspecified obesity type, unspecified whether serious comorbidity present - ICD9: 278.00, V85.30, ICD10: E66.811, Z68.30 (primary diagnosis) Continue Adipex, working on diet and exercise F/u in the office in 3 months 2. FABIENNE (generalized anxiety disorder) - ICD9: 300.02, ICD10: F41.1 Continue Lexapro 10mg qhs 3. Situational insomnia - ICD9: 307.41, ICD10: F51.09 Continue Lexapro 10mg qhs Continue prn trazodone 25-50mg Chalino Bob APRN.CNP Allergies As of Date: 08/21/2024 (No Known Allergies) Date Reviewed: 08/21/2024 Reviewed by: Chalino Bob APRN.CARTON FORMING MACHINE ADJUSTER - Fully Assessed Reason for Visit: Weight Check [196] (more content not included)... Normal [facility] No Panel Informationon 03-29 IMPRESSION: Unremarkable sonographic exam of the pelvis. Military Science Teacher: DAYNA Transcribe Date/Time: Mar 29 2024 2:48P Dictated by : TAIWO SUNG MD This examination was interpreted and the report reviewed and electronically signed by: TAIWO SUNG MD on Mar 29 2024 2:51PM [facility] DIVISION OF RADIOLOGY Radiology Study observation (narrative) [facility] No Panel InformationOrdered By: Ccf Provider on 03-29-2024 [facility] US Pelvis limitedon 03-29-20 * * *Final Report* * * DATE OF EXAM: Mar 29 2024 1:53PM [facility] 1059 - US FEMALE PELVIS TRANSABD LTD / PROCEDURE REASON: multiple diagnoses * * * * Physician Interpretation * * * * EXAMINATION: TRANSVAGINAL AND LIMITED TRANSABDOMINAL FEMALE PELVIC ULTRASOUND CLINICAL HISTORY: Left lower quadrant abdominal pain. LMP: Unknown. TECHNIQUE: Sonography of the pelvis was performed by transvaginal and transabdominal (limited) techniques. Images were obtained and stored in a permanent archive. MQ: [facility]_2021 COMPARISON: None RESULT: Uterus: -Size: 7.6 x 2.7 x 4.1 cm -Orientation: Anteverted -Endometrial echo complex: Evaluation of the endometrium was adequate. No endometrial abnormality. The endometrial echo complex measured 0.5 cm. -Cervix: Unremarkable. -Adenomyosis assessment: There are no sonographic findings of adenomyosis. -Fibroids: There are no fibroids. Right Ovary: -Size: 2.9 x 1.9 x 2.8 cm -Normal sonographic appearance. Left Ovary: -Size: 2.9 x 1.5 x 1.7 cm -Normal sonographic appearance. Free Fluid: No abnormal free fluid is present. DIVISION OF RADIOLOGY Provider, [facility] - 03/29/2024 * * *Final Report* * * DATE OF EXAM: Mar 29 2024 1:53PM [facility] 1059 - US FEMALE PELVIS TRANSABD LTD / PROCEDURE REASON: multiple diagnoses * * * * Physician Interpretation * * * * EXAMINATION: TRANSVAGINAL AND LIMITED TRANSABDOMINAL FEMALE PELVIC ULTRASOUND CLINICAL HISTORY: Left lower quadrant abdominal pain. LMP: Unknown. TECHNIQUE: Sonography of the pelvis was performed by transvaginal and transabdominal (limited) techniques. Images were obtained and stored in a permanent archive. MQ: [facility]_2021 COMPARISON: None RESULT: Uterus: -Size: 7.6 x 2.7 x 4.1 cm -Orientation: Anteverted -Endometrial echo complex: Evaluation of the endometrium was adequate. No endometrial abnormality. The endometrial echo complex measured 0.5 cm. -Cervix: Unremarkable. -Adenomyosis assessment: There are no sonographic findings of adenomyosis. -Fibroids: There are no fibroids. Right Ovary: -Size: 2.9 x 1.9 x 2.8 cm -Normal sonographic appearance. Left Ovary: -Size: 2.9 x 1.5 x 1.7 cm -Normal sonographic appearance. Free Fluid: No abnormal free fluid is present. IMPRESSION IMPRESSION: Unremarkable sonographic exam of the pelvis. Military Science Teacher: PSCB Transcribe Date/Time: Mar 29 2024 2:48P Dictated by : TAIWO SUNG MD This examination was interpreted and the report reviewed and electronically signed by: TAIWO SUNG MD on Mar 29 2024 2:51PM [facility] US Pelvis transvaginalon * * *Final Report* * * DATE OF EXAM: Mar 29 2024 1:53PM [facility] 1060 - US FEMALE PELVIS TRANSVAG / PROCEDURE REASON: multiple diagnoses * * * * Physician Interpretation * * * * EXAMINATION: TRANSVAGINAL AND LIMITED TRANSABDOMINAL FEMALE PELVIC ULTRASOUND CLINICAL HISTORY: Left lower quadrant abdominal pain. LMP: Unknown. TECHNIQUE: Sonography of the pelvis was performed by transvaginal and transabdominal (limited) techniques. Images were obtained and stored in a permanent archive. MQ: [facility]_2021 COMPARISON: None RESULT: Uterus: -Size: 7.6 x 2.7 x 4.1 cm -Orientation: Anteverted -Endometrial echo complex: Evaluation of the endometrium was adequate. No endometrial abnormality. The endometrial echo complex measured 0.5 cm. -Cervix: Unremarkable. -Adenomyosis assessment: There are no sonographic findings of adenomyosis. -Fibroids: There are no fibroids. Right Ovary: -Size: 2.9 x 1.9 x 2.8 cm -Normal sonographic appearance. Left Ovary: -Size: 2.9 x 1.5 x 1.7 cm -Normal sonographic appearance. Free Fluid: No abnormal free fluid is present. DIVISION OF RADIOLOGY Provider, [facility] - 03/29/2024 * * *Final Report* * * DATE OF EXAM: Mar 29 2024 1:53PM [facility]60 - US FEMALE PELVIS TRANSVAG / PROCEDURE REASON: multiple diagnoses * * * * Physician Interpretation * * * * EXAMINATION: TRANSVAGINAL AND LIMITED TRANSABDOMINAL FEMALE PELVIC ULTRASOUND CLINICAL HISTORY: Left lower quadrant abdominal pain. LMP: Unknown. TECHNIQUE: Sonography of the pelvis was performed by transvaginal and transabdominal (limited) techniques. Images were obtained and stored in a permanent archive. MQ: [facility]_2021 COMPARISON: None RESULT: Uterus: -Size: 7.6 x 2.7 x 4.1 cm -Orientation: Anteverted -Endometrial echo complex: Evaluation of the endometrium was adequate. No endometrial abnormality. The endometrial echo complex measured 0.5 cm. -Cervix: Unremarkable. -Adenomyosis assessment: There are no sonographic findings of adenomyosis. -Fibroids: There are no fibroids. Right Ovary: -Size: 2.9 x 1.9 x 2.8 cm -Normal sonographic appearance. Left Ovary: -Size: 2.9 x 1.5 x 1.7 cm -Normal sonographic appearance. Free Fluid: No abnormal free fluid is present. IMPRESSION IMPRESSION: Unremarkable sonographic exam of the pelvis. Military Science Teacher: [facility] Transcribe Date/Time: Mar 29 2024 2:48P Dictated by : TAIWO SUNG MD This examination was interpreted and the report reviewed and electronically signed by: TAIWO SUNG MD on Mar 29 2024 2:51PM EST [facility] XR Abdomen Supine and Uprigh ton 03-21-2024 IMPRESSION: No acute radiographic abnormalities seen. Military Science Teacher: [facility] Transcribe Date/Time: Mar 21 2024 5:26P Dictated by : TAIWO SUNG MD This examination was interpreted and the report reviewed and electronically signed by: TAIWO SUNG MD on Mar 21 2024 5:27PM [facility] DIVISION OF RADIOLOGY * * *Final Report* * * DATE OF EXAM: Mar 19 2024 5:29PM [id number] - XR ABDOMEN 1V SUPINE / PROCEDURE REASON: multiple diagnoses * * * * Physician Interpretation * * * * EXAM TITLE: XR ABDOMEN 1V SUPINE EXAM DATE/TIME: 03/19/2024 5:29 PM COMPARISON: None. CLINICAL INDICATION/HISTORY: Left lower quadrant abdominal pain. TECHNIQUE: AP views of the abdomen are presented. FINDINGS: No abnormally dilated bowel loops identified. There is a focal opacity overlying the left upper quadrant abdomen, likely representing vascular calcification or calcification in the spleen. Phleboliths seen in the pelvis. The bony structures appear intact. DIVISION OF RADIOLOGY Provider, [facility] - 03/21/2024 * * *Final Report* * * DATE OF EXAM: Mar 19 2024 5:29PM [id number] - XR ABDOMEN 1V SUPINE / PROCEDURE REASON: multiple diagnoses * * * * Physician Interpretation * * * * EXAM TITLE: XR ABDOMEN 1V SUPINE EXAM DATE/TIME: 03/19/2024 5:29 PM COMPARISON: None. CLINICAL INDICATION/HISTORY: Left lower quadrant abdominal pain. TECHNIQUE: AP views of the abdomen are presented. FINDINGS: No abnormally dilated bowel loops identified. There is a focal opacity overlying the left upper quadrant abdomen, likely representing vascular calcification or calcification in the spleen. Phleboliths seen in the pelvis. The bony structures appear intact. IMPRESSION IMPRESSION: No acute radiographic abnormalities seen. Military Science Teacher: G[employer] Transcribe Date/Time: Mar 21 2024 5:26P Dictated by : TAIWO SUNG MD This examination was interpreted and the report reviewed and electronically signed by: TAIWO SUNG MD on Mar 21 2024 5:27PM EST [facility] XR Abdomen Supine and Uprigh tOrdered By: Ccf Provider on 03-21-2024 [facility] XR Abdomen Supine and Uprigh ton 03-19-2024 Radiology Study observation (narrative) [facility] XR Finger - left AP and Late ral and obliqueon 03-31-2022 IMPRESSION: No acute osseous abnormality identified. Military Science Teacher: P[employer] Transcribe Date/Time: Mar 31 2022 12:33P Dictated by : GORDON REYES MD This examination was interpreted and the report reviewed and electronically signed by: GORDON REYES MD on Mar 31 2022 12:33PM EST [id number] SE_DIVISION OF RADIOLOGY * * *Final Report* * * DATE OF EXAM: Mar 31 2022 12:28PM WOX [id number] - XR DIGIT 3V FRONTAL/LAT/OBL LT / PROCEDURE REASON: multiple diagnoses * * * * Physician Interpretation * * * * Ring finger radiographs HISTORY: 26 years old Clinical information: Finger swelling Pain of finger of left hand Left ring finger swelling x 2 weeks without injury TECHNIQUE: Images: XR DIGIT 3V FRONTAL/LAT/OBL LT Comparison: None. RESULT: Findings: Joint spaces are maintained. No fracture or dislocation. No soft tissue abnormality identified. [id number] _DIVISION OF RADIOLOGY Provider, [facility] - 03/31/2022 * * *Final Report* * * DATE OF EXAM: Mar 31 2022 12:28PM WOX [id number] - XR DIGIT 3V FRONTAL/LAT/OBL LT / PROCEDURE REASON: multiple diagnoses * * * * Physician Interpretation * * * * Ring finger radiographs HISTORY: 26 years old Clinical information: Finger swelling Pain of finger of left hand Left ring finger swelling x 2 weeks without injury TECHNIQUE: Images: XR DIGIT 3V FRONTAL/LAT/OBL LT Comparison: None. RESULT: Findings: Joint spaces are maintained. No fracture or dislocation. No soft tissue abnormality identified. IMPRESSION IMPRESSION: No acute osseous abnormality identified. Military Science Teacher: PSCB Transcribe Date/Time: Mar 31 2022 12:33P Dictated by : GORDON REYES MD This examination was interpreted and the report reviewed and electronically signed by: GORDON REYES MD on Mar 31 2022 12:33PM [facility] Radiology Study observation (narrative) [facility] XR Finger - left AP and Late ral and obliqueOrdered By: Cc Provider on 03-31-2022 [facility] No Panel Informationon 12-14 IMPRESSION: Negative Military Science Teacher: PSCB Transcribe Date/Time: Dec 14 2021 6:21P Dictated by : SONYA MELLO MD This examination was interpreted and the report reviewed and electronically signed by: SONYA MELLO MD on Dec 14 2021 6:22PM [facility] DIVISION OF RADIOLOGY Radiology Study observation (narrative) [facility] No Panel InformationOrdered By: Cc Provider on 12-14-2021 [facility] XR Hand - left PA and Latera l and Obliqueon 12-14-2021 * * *Final Report* * * DATE OF EXAM: Dec 14 2021 6:19PM WOX [id number] - XR HAND 3V PA/LAT/OBL LT / PROCEDURE REASON: Left hand pain * * * * Physician Interpretation * * * * PROCEDURE: Left hand and wrist INDICATION: Left wrist pain Injury of left wrist, initial encounter .patient fell on ice on Monday, injuring left wrist/hand. Pain in scaphoid region radiating both proximally and distally to scaphoid area. TECHNIQUE: XR WRIST 4V PA/LAT/OBL/SCAPH LT, XR HAND 3V PA/LAT/OBL LT COMPARISON: None FINDINGS: No fractures or dislocations are seen. The bones, joint spaces and soft tissues are unremarkable. DIVISION OF RADIOLOGY Provider, [facility] - 12/14/2021 * * *Final Report* * * DATE OF EXAM: Dec 14 2021 6:19PM WOX 5345 - XR HAND 3V PA/LAT/OBL LT / PROCEDURE REASON: Left hand pain * * * * Physician Interpretation * * * * PROCEDURE: Left hand and wrist INDICATION: Left wrist pain Injury of left wrist, initial encounter .patient fell on ice on Monday, injuring left wrist/hand. Pain in scaphoid region radiating both proximally and distally to scaphoid area. TECHNIQUE: XR WRIST 4V PA/LAT/OBL/SCAPH LT, XR HAND 3V PA/LAT/OBL LT COMPARISON: None FINDINGS: No fractures or dislocations are seen. The bones, joint spaces and soft tissues are unremarkable. IMPRESSION IMPRESSION: Negative Military Science Teacher: PSCB Transcribe Date/Time: Dec 14 2021 6:21P Dictated by : SONYA MELLO MD This examination was interpreted and the report reviewed and electronically signed by: SONYA MELLO MD on Dec 14 2021 6:22PM [facility] XR Wrist - left 4 Viewson * * *Final Report* * * DATE OF EXAM: Dec 14 2021 6:18PM WOX [id number] - XR WRIST 4V PA/LAT/OBL/SCAPH LT / PROCEDURE REASON: multiple diagnoses * * * * Physician Interpretation * * * * PROCEDURE: Left hand and wrist INDICATION: Left wrist pain Injury of left wrist, initial encounter .patient fell on ice on Monday, injuring left wrist/hand. Pain in scaphoid region radiating both proximally and distally to scaphoid area. TECHNIQUE: XR WRIST 4V PA/LAT/OBL/SCAPH LT, XR HAND 3V PA/LAT/OBL LT COMPARISON: None FINDINGS: No fractures or dislocations are seen. The bones, joint spaces and soft tissues are unremarkable. DIVISION OF RADIOLOGY Provider, [facility] - 12/14/2021 * * *Final Report* * * DATE OF EXAM: Dec 14 2021 6:18PM WOX 5272 - XR WRIST 4V PA/LAT/OBL/SCAPH LT / PROCEDURE REASON: multiple diagnoses * * * * Physician Interpretation * * * * PROCEDURE: Left hand and wrist INDICATION: Left wrist pain Injury of left wrist, initial encounter .patient fell on ice on Monday, injuring left wrist/hand. Pain in scaphoid region radiating both proximally and distally to scaphoid area. TECHNIQUE: XR WRIST 4V PA/LAT/OBL/SCAPH LT, XR HAND 3V PA/LAT/OBL LT COMPARISON: None FINDINGS: No fractures or dislocations are seen. The bones, joint spaces and soft tissues are unremarkable. IMPRESSION IMPRESSION: Negative Military Science Teacher: PSCB Transcribe Date/Time: Dec 14 2021 6:21P Dictated by : SONYA MELLO MD This examination was interpreted and the report reviewed and electronically signed by: SONYA MELLO MD on Dec 14 2021 6:22PM [facility] PROGRESSon 02-05-2021 PROGRESS HNO ID: [id number] Author: Mona RodriguezRtLoe Lee Service: Radiology Author Type: Biostatistician Type: Progress Notes Filed: 02/05/2021 11:24 AM Note Text: Radiology Service Progress Note PATIENT NAME: Natalee Nickerson DATE OF SERVICE: February 05, 2021 TIME: 11:23 AM PATIENT IDENTITY VERIFICATION COMPLETED USING TWO (2) IDENTIFIERS: Name and Date of confirmed by patient verbally. FALL SCREENING: Has the patient had 2 falls in the last year or 1 fall with injury or currently using an Ambulatory Assistive Device (Walker, Cane, Wheelchair, Crutches, etc.)? No PATIENT GENDER DATA: Female. status: : No status: NO. PATIENT RELEVANT IMPLANT DATA REVIEWED: Not Applicable RADIOLOGY DEPARTMENT: General X-ray: Exam(s) Completed: Upper Extremity X-Ray(s): Shoulder, AP / TRUE AP right : PERIPHERAL IV DATA: Not applicable SIGNED BY: RT Emmett February 05, 2021 11:23 AM [facility] XR SHOULDER 2V AP/TRUE AP RT on 02-05-2021 XR SHOULDER 2V AP/TRUE AP RT * * *Final Report* * * DATE OF EXAM: Feb 05 2021 11:25AM GRX [id number] - XR SHOULDER 2V AP/TRUE AP RT / PROCEDURE REASON: multiple diagnoses * * * * Physician Interpretation * * * * XR SHOULDER 2V AP/TRUE AP RT HISTORY: 25 years old Clinical information: Chronic right shoulder pain right shoulder pain x 2 years, NKI -fx -sx TECHNIQUE: Images: XR SHOULDER 2V AP/TRUE AP RT Comparison: None. RESULT: Joint spaces are well preserved. No fractures or dislocations are seen. Visualized right hemithorax appears unremarkable IMPRESSION: No evidence of osseous pathology. Military Science Teacher: PSCB Transcribe Date/Time: Feb 05 2021 9:30P Dictated by : FREDI OROZCO MD This examination was interpreted and the report reviewed and electronically signed by: FREDI OROZCO MD on Feb 05 2021 9:31PM EST [id number] [facility] Vital Signs Date Time Vital Sign Value Performing Clinician Kaitlin koenig 05-21-2025 17:48-0400 Body mass index (BMI) [Ratio] 30 kg/m2 Bushra Gee APRN.[employer]ARTON FORMING MACHINE ADJUSTER Work Phone: [facility] 05-21-2025 17:48-0400 Body weight 78.74 kg Bushra Gee APRN.CNP Work Phone: [facility] 05-21-2025 17:48-0400 Diastolic blood pressure 74 mm[Hg] Bushra Gee APRN.CNP Work Phone: [facility] 05-21-2025 17:48-0400 Heart rate 110 /min Bushra Gee APRN.CNP Work Phone: [facility] 05-21-2025 17:48-0400 Respiratory rate 14 /min Bushra Jasmyn MARKET GARDENER.C[employer] FORMING MACHINE ADJUSTER Work Phone: [facility] 05-21-2025 17:48-0400 SaO2% (BldA) [Mass fraction] 98 % Bushra Jasmyn MARKET GARDENER.[employer] FORMING MACHINE ADJUSTER Work Phone: [facility] 05-21-2025 17:48-0400 Systolic blood pressure 136 mm[Hg] Bushra Jasmyn MARKET GARDENER.[employer] FORMING MACHINE ADJUSTER Work Phone: [facility] 04-28-2025 12:23-0400 Body mass index (BMI) [Ratio] 29.83 kg/m2 Bj High MD Work Phone: [facility] 04-28-2025 12:23-0400 Body temperature 98.91 [degF] Bj High MD Work Phone: [facility] 04-28-2025 12:23-0400 Body weight 78.3 kg Bj High MD Work Phone: [facility] 04-28-2025 12:23-0400 Diastolic blood pressure 70 mm[Hg] Bj High MD Work Phone: [facility] 04-28-2025 12:23-0400 Heart rate 104 /min Bj High MD Work Phone: [facility] 04-28-2025 12:23-0400 Respiratory rate 16 /min Bj High MD Work Phone: [facility] 04-28-2025 12:23-0400 SaO2% (BldA) [Mass fraction] 98 % Bj High MD Work Phone: [facility] 04-28-2025 12:23-0400 Systolic blood pressure 120 mm[Hg] Bj High MD Work Phone: [facility] 02-21-2025 09:17-0400 Body mass index (BMI) [Ratio] 29.49 kg/m2 Chalino Bob APRN.[employer] FORMING MACHINE ADJUSTER Work Phone: [facility] 02-21-2025 09:17-0400 Body weight 77.38 kg Chalino Annalise MARKET GARDENER.[employer] FORMING MACHINE ADJUSTER Work Phone: [facility] 02-21-2025 09:17-0400 Diastolic blood pressure 78 mm[Hg] Chalino Annalise MARKET GARDENER.[employer] FORMING MACHINE ADJUSTER Work Phone: [facility] 02-21-2025 09:17-0400 Heart rate 105 /min Chalino Annalise MARKET GARDENER.[employer] FORMING MACHINE ADJUSTER Work Phone: [facility] 02-21-2025 09:17-0400 SaO2% (BldA) [Mass fraction] 99 % Chalino Annalise MARKET GARDENER.C[employer]ON FORMING MACHINE ADJUSTER Work Phone: [facility] 02-21-2025 09:17-0400 Systolic blood pressure 118 mm[Hg] Chalino Annalise MARKET GARDENER.[employer] FORMING MACHINE ADJUSTER Work Phone: [facility] 11-22-2024 08:10-0500 Body mass index (BMI) [Ratio] 29.8 kg/m2 Susan Wiley MARKET GARDENER.[employer] FORMING MACHINE ADJUSTER Work Phone: [facility] 11-22-2024 08:10-0500 Body weight 78.2 kg Susan Wiley MARKET GARDENER.C[employer] FORMING MACHINE ADJUSTER Work Phone: [facility] 11-22-2024 08:10-0500 Diastolic blood pressure 68 mm[Hg] Susan Wiley MARKET GARDENER.C[employer]ON FORMING MACHINE ADJUSTER Work Phone: [facility] 11-22-2024 08:10-0500 Heart rate 95 /min Susan Wiley MARKET GARDENER.C[employer]ON FORMING MACHINE ADJUSTER Work Phone: [facility] 11-22-2024 08:10-0500 Respiratory rate 12 /min Susan Wiley MARKET GARDENER.C[employer] FORMING MACHINE ADJUSTER Work Phone: [facility] 11-22-2024 08:10-0500 SaO2% (BldA) [Mass fraction] 99 % Susan Wiley MARKET GARDENER.C[employer]ON FORMING MACHINE ADJUSTER Work Phone: [facility] 11-22-2024 08:10-0500 Systolic blood pressure 128 mm[Hg] Susan Wiley MARKET GARDENER.C[employer] FORMING MACHINE ADJUSTER Work Phone: [facility] 10-31-2024 15:59-0500 Body mass index (BMI) [Ratio] 30.07 kg/m2 Jayde Bangura MD Work Phone: [facility] 10-31-2024 15:59-0500 Body weight 78.93 kg Jayde Bangura MD Work Phone: [facility] 10-31-2024 15:59-0500 Diastolic blood pressure 74 mm[Hg] Jayde Bangura MD Work Phone: [facility] 10-31-2024 15:59-0500 Systolic blood pressure 110 mm[Hg] Jayde Bangura MD Work Phone: [facility] 08-21-2024 16:30-0400 Body mass index (BMI) [Ratio] 30.48 kg/m2 Chalino Annalise MARKET GARDENER.C[employer] FORMING MACHINE ADJUSTER Work Phone: [facility] 08-21-2024 16:30-0400 Body weight 80 kg Chalino Annalise MARKET GARDENER.C[employer]ON FORMING MACHINE ADJUSTER Work Phone: [facility] 08-21-2024 16:30-0400 Diastolic blood pressure 76 mm[Hg] Chalino Annalise MARKET GARDENER.C[employer]ON FORMING MACHINE ADJUSTER Work Phone: [facility] 08-21-2024 16:30-0400 Heart rate 78 /min Chalino Annalise MARKET GARDENER.C[employer]ON FORMING MACHINE ADJUSTER Work Phone: [facility] 08-21-2024 16:30-0400 Respiratory rate 16 /min Chalino Annalise MARKET GARDENER.C[employer]ON FORMING MACHINE ADJUSTER Work Phone: [facility] 08-21-2024 16:30-0400 SaO2% (BldA) [Mass fraction] 98 % Chalino Annalise MARKET GARDENER.C[employer]ON FORMING MACHINE ADJUSTER Work Phone: [facility] 08-21-2024 16:30-0400 Systolic blood pressure 118 mm[Hg] Chalino Annalise MARKET GARDENER.C[employer]ON FORMING MACHINE ADJUSTER Work Phone: [facility] 05-22-2024 16:47-0400 Body height 162 cm Juan A Balbuena DO Work Phone: [facility] 05-22-2024 16:47-0400 Body mass index (BMI) [Ratio] 31.8 kg/m2 Juan A Balbuena DO Work Phone: [facility] 05-22-2024 16:47-0400 Body temperature 97.3 [degF] Juan A Balbuena DO Work Phone: [facility] 05-22-2024 16:47-0400 Body weight 83.46 kg Juan A Balbuena DO Work Phone: [facility] 05-22-2024 16:47-0400 Diastolic blood pressure 80 mm[Hg] Juan A Balbuena DO Work Phone: [facility] 05-22-2024 16:47-0400 Heart rate 88 /min Juan A Balbuena DO Work Phone: [facility] 05-22-2024 16:47-0400 Systolic blood pressure 120 mm[Hg] Juan A Balbuena DO Work Phone: [facility] 03-06-2024 12:20-0400 Body mass index (BMI) [Ratio] 32.65 kg/m2 Chalino Annalise MARKET GARDENER.[employer] FORMING MACHINE ADJUSTER Work Phone: [facility] 03-06-2024 12:20-0400 Body temperature 98.71 [degF] Chalino Annalise MARKET GARDENER.C[employer] FORMING MACHINE ADJUSTER Work Phone: [facility] 03-06-2024 12:20-0400 Body weight 84.28 kg Chalino Annalise MARKET GARDENER.C[employer]ON FORMING MACHINE ADJUSTER Work Phone: [facility] 03-06-2024 12:20-0400 Diastolic blood pressure 82 mm[Hg] Chalino Annalise MARKET GARDENER.CARTON FORMING MACHINE ADJUSTER Work Phone: [facility] 03-06-2024 12:20-0400 Heart rate 87 /min Chalino Hutchinsman MARKET GARDENER.CARTON FORMING MACHINE ADJUSTER Work Phone: [facility] 03-06-2024 12:20-0400 SaO2% (BldA) [Mass fraction] 97 % Chalino Annalise MARKET GARDENER.C[employer] FORMING MACHINE ADJUSTER Work Phone: [facility] 03-06-2024 12:20-0400 Systolic blood pressure 110 mm[Hg] Chalino Annalise MARKET GARDENER.CARTON FORMING MACHINE ADJUSTER Work Phone: [facility] 10-04-2023 16:21-0500 Body temperature 98.71 [degF] Susan Wiley MARKET GARDENER.CARTON FORMING MACHINE ADJUSTER Work Phone: [facility] 10-04-2023 16:21-0500 Body weight 83.37 kg Susan Wiley MARKET GARDENER.CARTON FORMING MACHINE ADJUSTER Work Phone: [facility] 10-04-2023 16:21-0500 Diastolic blood pressure 72 mm[Hg] Susan Wiley MARKET GARDENER.CARTON FORMING MACHINE ADJUSTER Work Phone: [facility] 10-04-2023 16:21-0500 Heart rate 82 /min Susan Wiley MARKET GARDENER.C[employer]ON FORMING MACHINE ADJUSTER Work Phone: [facility] 10-04-2023 16:21-0500 SaO2% (BldA) [Mass fraction] 99 % Susan Wiley MARKET GARDENER.C[employer]ON FORMING MACHINE ADJUSTER Work Phone: [facility] 10-04-2023 16:21-0500 Systolic blood pressure 122 mm[Hg] Susan Wiley MARKET GARDENER.C[employer]ON FORMING MACHINE ADJUSTER Work Phone: [facility] 09-06-2023 15:56-0400 Body height 160.7 cm Jayde Bangura MD Work Phone: [facility] 09-06-2023 15:56-0400 Body weight 81.19 kg Jayde Bangura MD Work Phone: [facility] 09-06-2023 15:56-0400 Diastolic blood pressure 72 mm[Hg] Jayde Bangura MD Work Phone: [facility] 09-06-2023 15:56-0400 Systolic blood pressure 110 mm[Hg] Jayde Bangura MD Work Phone: [facility] 04-12-2023 16:56-0400 Body height 161 cm Juan A Balbuena DO Work Phone: [facility] 04-12-2023 16:56-0400 Body temperature 98.01 [degF] Juan A Balbuena DO Work Phone: [facility] 04-12-2023 16:56-0400 Body weight 80.29 kg Juan A Balbuena DO Work Phone: [facility] 04-12-2023 16:56-0400 Diastolic blood pressure 60 mm[Hg] Juan A Balbuena DO Work Phone: [facility] 04-12-2023 16:56-0400 Heart rate 76 /min Juan A Balbuena DO Work Phone: [facility] 04-12-2023 16:56-0400 Respiratory rate 16 /min Juan A Balbuena DO Work Phone: [facility] 04-12-2023 16:56-0400 Systolic blood pressure 100 mm[Hg] Juan A Balbuena DO Work Phone: [facility] 12-14-2022 17:31-0500 Body weight 80.38 kg Susan Wiley MARKET GARDENER.C[employer] FORMING MACHINE ADJUSTER Work Phone: [facility] 12-14-2022 17:31-0500 Diastolic blood pressure 60 mm[Hg] Susan Wiley MARKET GARDENER.C[employer]ON FORMING MACHINE ADJUSTER Work Phone: [facility] 12-14-2022 17:31-0500 Heart rate 72 /min Susan Wiley MARKET GARDENER.C[employer] FORMING MACHINE ADJUSTER Work Phone: [facility] 12-14-2022 17:31-0500 Respiratory rate 16 /min Susan Wiley MARKET GARDENER.C[employer] FORMING MACHINE ADJUSTER Work Phone: [facility] 12-14-2022 17:31-0500 Systolic blood pressure 112 mm[Hg] Susan Wiley MARKET GARDENER.C[employer]ON FORMING MACHINE ADJUSTER Work Phone: [facility] 11-15-2022 15:58-0500 Body weight 79.56 kg Nurse Wstr Work Phone: [facility] 11-15-2022 15:58-0500 Diastolic blood pressure 76 mm[Hg] Nurse Wstr Work Phone: [facility] 11-15-2022 15:58-0500 Systolic blood pressure 102 mm[Hg] Nurse Wstr Work Phone: [facility] 10-12-2022 17:20-0500 Body weight 81.01 kg Chalino Annalise MARKET GARDENER.C[employer] FORMING MACHINE ADJUSTER Work Phone: [facility] 10-12-2022 17:20-0500 Diastolic blood pressure 80 mm[Hg] Chalino Annalise MARKET GARDENER.C[employer]ON FORMING MACHINE ADJUSTER Work Phone: [facility] 10-12-2022 17:20-0500 Heart rate 79 /min Chalino Annalise MARKET GARDENER.C[employer]ON FORMING MACHINE ADJUSTER Work Phone: [facility] 10-12-2022 17:20-0500 Respiratory rate 16 /min Chalino Annalise MARKET GARDENER.CARTON FORMING MACHINE ADJUSTER Work Phone: [facility] 10-12-2022 17:20-0500 SaO2% (BldA) [Mass fraction] 99 % Chalino Annalise MARKET GARDENER.C[employer]ON FORMING MACHINE ADJUSTER Work Phone: [facility] 10-12-2022 17:20-0500 Systolic blood pressure 108 mm[Hg] Chalino Annalise MARKET GARDENER.CARTON FORMING MACHINE ADJUSTER Work Phone: [facility] 08-31-2022 15:45-0400 Body height 161.3 cm Jayde Bangura MD Work Phone: [facility] 08-31-2022 15:45-0400 Body weight 79.47 kg Jayde Bangura MD Work Phone: [facility] 08-31-2022 15:45-0400 Diastolic blood pressure 64 mm[Hg] Jayde Bangura MD Work Phone: [facility] 08-31-2022 15:45-0400 Systolic blood pressure 106 mm[Hg] Jayde Bangura MD Work Phone: [facility] 08-15-2022 08:11-0400 Body weight 80.56 kg Susan Zursitack MARKET GARDENER.CARTON FORMING MACHINE ADJUSTER Work Phone: [facility] 08-15-2022 08:11-0400 Diastolic blood pressure 72 mm[Hg] Susan Zurawick MARKET GARDENER.CARTON FORMING MACHINE ADJUSTER Work Phone: [facility] 08-15-2022 08:11-0400 Heart rate 62 /min Susan Zurawick MARKET GARDENER.CARTON FORMING MACHINE ADJUSTER Work Phone: [facility] 08-15-2022 08:11-0400 Respiratory rate 14 /min Susan Zurawick MARKET GARDENER.CARTON FORMING MACHINE ADJUSTER Work Phone: [facility] 08-15-2022 08:11-0400 Systolic blood pressure 90 mm[Hg] Susan Zurawick MARKET GARDENER.CARTON FORMING MACHINE ADJUSTER Work Phone: [facility] 04-15-2022 13:59-0400 Body height 162 cm Juan A Balbuena DO Work Phone: [facility] 04-15-2022 13:59-0400 Body temperature 97 [degF] Juan A Balbuena DO Work Phone: [facility] 04-15-2022 13:59-0400 Body weight 79.38 kg Juan A Balbuena DO Work Phone: [facility] 04-15-2022 13:59-0400 Diastolic blood pressure 60 mm[Hg] Juan A Balbuena DO Work Phone: [facility] 04-15-2022 13:59-0400 Heart rate 64 /min Juan A Balbuena DO Work Phone: [facility] 04-15-2022 13:59-0400 Respiratory rate 16 /min Juan A Balbuena DO Work Phone: [facility] 04-15-2022 13:59-0400 Systolic blood pressure 100 mm[Hg] Juan A Balbuena DO Work Phone: [facility] Encounters Encounter Date Encounter Type Care Provider Facility Start: 07-23-2025 End: 07-23-2025 ambulatory JUAN A BALBUENA Facility:[facility] Start: 07-22-2025 End: 07-22-2025 ambulatory JUAN A BALBUENA Facility:[facility] Start: 06-24-2025 End: 06-24-2025 Patient Msg [facility] Provider [facility] Comment on above: Refill Start: 06-22-2025 End: 06-24-2025 Refill Susan Wiley APRN.[employer] FORMING MACHINE ADJUSTER Work Phone: [facility] [place] Comment on above: Refill Request Start: 05-22-2025 End: 05-22-2025 ambulatory Juan A Balbuena DO Work Phone: [facility] [place] Start: 05-22-2025 End: 05-22-2025 Patient encounter procedure Juan A Balbuena DO Work Phone: [facility] Comment on above: Upcoming July 08 Appointment Start: 05-22-2025 End: 05-23-2025 Patient encounter status Juan A Balbuena DO Work Phone: [facility] Work Phone: Start: 05-22-2025 End: 05-23-2025 Telephone encounter Juan A Balbuena DO Work Phone: [facility] Start: 05-21-2025 End: 05-21-2025 Office outpatient visit 25 minutes Bushra Gee APRN.[employer] FORMING MACHINE ADJUSTER Work Phone: [facility] Comment on above: Obesity, Class I, BM I 30-34.9 Start: 05-21-2025 End: 05-22-2025 ambulatory Bushra Gee APRN.C[employer]ON FORMING MACHINE ADJUSTER Work Phone: [facility] [place] Comment on above: next visit Start: 05-21-2025 End: 05-22-2025 E-mail encounter from caregiver Bushra Gee APRN.C[employer]ON FORMING MACHINE ADJUSTER Work Phone: [facility] [place] Start: 04-28-2025 End: 04-28-2025 Office outpatient visit 25 minutes Bj High MD Work Phone: [facility] Comment on above: Migraine without aur a, intractable, without status migrainosus (Primary Dx) Start: 04-28-2025 End: 04-28-2025 ambulatory BJ HIGH Facility:[facility] Start: 02-21-2025 End: 02-21-2025 Telephone encounter Juan A Balbuena DO Work Phone: [address] [place] [address] Comment on above: Orders Start: 02-21-2025 End: 02-21-2025 Office outpatient visit 25 minutes Chalino Bob MARKET GARDENER.C[employer]ON FORMING MACHINE ADJUSTER Work Phone: [facility] Comment on above: Migraine without aur a, intractable, without status migrainosus (Primary Dx); Obesity, Class I, BMI 30-34.9 Start: 02-21-2025 End: 02-21-2025 ambulatory CHALINO BOB Facility:[facility] Start: 12-31-2024 End: 01-01-2025 Telephone encounter Juan A Balbuena DO Work Phone: [facility] Comment on above: Medication Problem Start: 12-29-2024 End: 12-30-2024 Refill Jayde Bangura MD Work Phone: OB/Gynecology Comment on above: Refill Request Start: 11-22-2024 End: 11-22-2024 Office outpatient visit 15 minutes Susan Wiley MARKET GARDENER.C[employer]ON FORMING MACHINE ADJUSTER Work Phone: [facility] Comment on above: Obesity, Class I, BM I 30-34.9 (Primary Dx); Screening for depression; Class 1 obesity with body mass index (BMI) of 31.0 to 31.9 in adult, unspecified obesity type, unspecified whether serious comorbidity present; Muscle strain Start: 11-22-2024 End: 11-22-2024 ambulatory SUSAN WILEY Facility:[facility] Start: 10-31-2024 End: 10-31-2024 ambulatory JAYDE BANGURA Facility:[facility] Start: 10-31-2024 End: 10-31-2024 Patient encounter procedure Jayde Bangura MD Work Phone: OB/Gynecology Comment on above: Encounter for gyneco logical examination (general) (routine) without abnormal findings (Primary Dx); Encounter for surveillance of injectable contraceptive; Vaginal discharge Start: 10-31-2024 End: 10-31-2024 Patient encounter status Jayde Bangura MD Work Phone: [facility] Start: 10-07-2024 End: 10-08-2024 Refill Jua nA Adamsonrison DO Work Phone: Family [facility] [place] Comment on above: Refill Request Start: 08-21-2024 End: 08-21-2024 Office outpatient visit 25 minutes Chalino Vazquezsasha RODRGIUEZCARTON FORMING MACHINE ADJUSTER Work Phone: Family Medicine [place] Comment on above: Class 1 obesity with body mass index (BMI) of 30.0 to 30.9 in adult, unspecified obesity type, unspecified whether serious comorbidity present (Primary Dx); FABIENNE (generalized anxiety disorder); Situational insomnia Start: 08-21-2024 End: 08-21-2024 ambulatory JUAN A FERRAROON Facility:[facility] Start: 08-05-2024 End: 08-05-2024 Refill Jayde Bangura MD Work Phone: OB/Gynecology Comment on above: Refill Request Start: 05-26-2024 ambulatory Juan A pulido DO Work Phone: [facility] [place] Comment on above: Phentermine HCl (ANDREEA PEX-P) Start: 05-24-2024 ambulatory Juan A pulido DO Work Phone: [facility] [place] Comment on above: Facility administere d medicine Start: 05-22-2024 End: 05-22-2024 Patient encounter procedure Juan A Adamsonrison DO Work Phone: [facility] [place] Comment on above: FABIENNE (generalized anx iety disorder) (Primary Dx); Migraine without aura, intractable, without status migrainosus; Class 1 obesity with body mass index (BMI) of 31.0 to 31.9 in adult, unspecified obesity type, unspecified whether serious comorbidity present Start: 03-29-2024 End: 03-29-2024 Subsequent hospital visit by physician [facility] Work Phone: Radiology Comment on above: LLQ pain [R10.32] Start: 03-19-2024 End: 03-19-2024 Subsequent hospital visit by physician David [facility] [place] Work Phone: Radiology Comment on above: LLQ pain [R10.32] Start: 03-18-2024 ambulatory Juan A pulido DO Work Phone: [facility] Comment on above: Diarrhea Start: 03-06-2024 Telephone encounter Chalino Conklin MARKET GARDENER.CARTON FORMING MACHINE ADJUSTER Work Phone: [facility] Comment on above: Appointment Start: 03-06-2024 End: 03-06-2024 Patient encounter procedure Chalino Bob MARKET GARDENER.CARTON FORMING MACHINE ADJUSTER Work Phone: [facility] Comment on above: LLQ pain (Primary Dx ); Suprapubic pain; Change in stool habits; Situational insomnia; FABIENNE (generalized anxiety disorder) Start: 02-18-2024 Refill Jayde shah MD Work Phone: OB/Gynecology Comment on above: Refill Request Start: 10-06-2023 ambulatory Susan Wiley MARKET GARDENER.CARTON FORMING MACHINE ADJUSTER Work Phone: [facility] Comment on above: MAG-G Start: 10-04-2023 End: 10-04-2023 Patient encounter procedure Susan Wiley MARKET GARDENER.CARTON FORMING MACHINE ADJUSTER Work Phone: [facility] Comment on above: Migraine without aur a, intractable, without status migrainosus (Primary Dx) Start: 09-24-2023 Refill Juan A pulido DO Work Phone: [facility] Comment on above: Refill Request Start: 09-16-2023 ambulatory Self Referred Facility: [facility] Start: 09-06-2023 End: 09-06-2023 Patient encounter procedure Jayde Bangura MD Work Phone: OB/Gynecology Comment on above: Encounter for gyneco logical examination (general) (routine) without abnormal findings (Primary Dx); Screening for cervical cancer; Encounter for screening for human papillomavirus (HPV) Start: 09-06-2023 End: 09-06-2023 Patient encounter status Jayde Bangura MD Work Phone: [facility] Start: 08-24-2023 End: 09-06-2023 ambulatory Juan A Balbuena Facility:[facility] Start: 06-22-2023 Refill Jayde shah MD Work Phone: OB/Gynecology Comment on above: Refill Request Start: 06-21-2023 ambulatory Juan A pulido DO Work Phone: [facility] Comment on above: Work Health Assement results Labs Start: 06-21-2023 Patient encounter status Chago Balbuena DO Work Phone: [facility] Work Phone: Start: 04-12-2023 End: 04-12-2023 Patient encounter procedure Juan A Balbuena DO Work Phone: [facility] Comment on above: Well adult exam (Margaret snow Dx); FABIENNE (generalized anxiety disorder); Situational insomnia; Vitamin D deficiency; Family history of premature coronary heart disease; Cardiac murmur, previously undiagnosed Start: 04-12-2023 End: 04-12-2023 Patient encounter status Juan A Balbuena DO Work Phone: [facility] Start: 03-16-2023 End: 03-16-2023 Nursing evaluation of patient and report Nurse Metal Dealer [facility] Work Phone: OB/Gynecology Comment on above: Need for prophylacti c vaccination/inoculation against viral disease (Primary Dx) Start: 02-16-2023 Refill Susan Saurabh MARKET GARDENER.CARTON FORMING MACHINE ADJUSTER Work Phone: [facility] Comment on above: Refill Request Start: 01-14-2023 ambulatory Lori Carrington RN NURSE SUPERVISOR [place] Comment on above: Abdominal Pain Start: 01-05-2023 Refill Susan Saurabh MARKET GARDENER.CARTON FORMING MACHINE ADJUSTER Work Phone: [facility] Comment on above: Refill Request Start: 12-14-2022 End: 12-14-2022 Patient encounter procedure Susanjay Wiley MARKET GARDENER.CARTON FORMING MACHINE ADJUSTER Work Phone: [facility] Comment on above: FABIENNE (generalized anx iety disorder) (Primary Dx); Situational insomnia; Fatigue, unspecified type; Decreased libido Start: 11-25-2022 ambulatory Juan A Otero son DO Work Phone: [facility] [place] Comment on above: Lexapro Start: 11-15-2022 End: 11-15-2022 Nursing evaluation of patient and report Nurse Metal Dealer [facility] Work Phone: OB/Gynecology Comment on above: Need for prophylacti c vaccination/inoculation against viral disease (Primary Dx) Start: 10-17-2022 [facility] Sanjeev Jennifer Work Phone: Podiatry Comment on above: Bunion Surgery Start: 10-17-2022 ambulatory Sanjeev Javid lopez Work Phone: [facility] Start: 10-12-2022 End: 10-12-2022 Patient encounter procedure Chalino Bob APRN.CARTON FORMING MACHINE ADJUSTER Work Phone: [facility] Comment on above: FABIENNE (generalized anx iety disorder) (Primary Dx); Situational insomnia; Fatigue, unspecified type; Decreased libido; Snoring; Daytime sleepiness Start: 09-14-2022 ambulatory Ada Holman APR N.CARTON FORMING MACHINE ADJUSTER Work Phone: Telemedicine Comment on above: Treatment not availa ble (Primary Dx) Start: 09-13-2022 End: 09-13-2022 Patient encounter procedure Lavern Díaz APRN.CARTON FORMING MACHINE ADJUSTER Work Phone: Dermatology Comment on above: Acrochordon (Primary Dx); Lentigines; Multiple benign nevi; Chowdary angioma Start: 08-31-2022 End: 08-31-2022 Patient encounter procedure Jayde Bangura MD Work Phone: OB/Gynecology Comment on above: Encounter for gyneco logical examination (general) (routine) without abnormal findings (Primary Dx); Obesity, Class I, BMI 30-34.9; Need for prophylactic vaccination/inoculation against viral disease; Vaginal itching Start: 08-31-2022 End: 08-31-2022 Patient encounter status Jayde Bangura MD Work Phone: OB/Gynecology Start: 08-15-2022 End: 08-15-2022 Patient encounter procedure Susan Abernathy MARKET GARDENERKwanCARTON FORMING MACHINE ADJUSTER Work Phone: [facility] [place] Comment on above: GERD without esophag itis (Primary Dx); Headaches Start: 07-18-2022 Refill Jayde shah MD Work Phone: OB/Gynecology Comment on above: Refill Request prescription Start: 06-15-2022 End: 06-15-2022 Patient encounter procedure Sanjeev Edouardhang Work Phone: Podiatry Comment on above: Open wound of toe, i nitial encounter (Primary Dx) Start: 04-15-2022 End: 04-15-2022 Patient encounter procedure Juan A Balbuena DO Work Phone: [facility] [place] Comment on above: Headache disorder (P rimary Dx); FABIENNE (generalized anxiety disorder); Situational insomnia Start: 04-01-2022 ambulatory Juan A Otero son DO Work Phone: [facility] [place] Comment on above: HBC A1C Start: 03-31-2022 ambulatory Juan A Otero son DO Work Phone: [facility] [place] Comment on above: left finger swelling Start: 03-31-2022 End: 03-31-2022 Subsequent hospital visit by physician Xr [facility] [place] Work Phone: Radiology Comment on above: Finger swelling [M79 .89] Start: 03-21-2022 ambulatory Juan A pulido DO Work Phone: [facility] [place] Start: 03-21-2022 Patient encounter procedure Juan A Balbuena DO Work Phone: [facility] [place] Comment on above: April 2022 Appointmen t Start: 02-09-2022 ambulatory Juan A pulido DO Work Phone: [facility] [place] Comment on above: Headaches Start: 12-14-2021 End: 12-14-2021 Subsequent hospital visit by physician Xr [facility] [place] Work Phone: Radiology Comment on above: Left wrist pain [M25 .532] Start: 07-31-2018 End: 08-31-2022 Physical examination Juan A Balbuena DO Work Phone: [facility] Work Phone: Start: 12-08-2015 Patient encounter status Chago Balbuena DO Work Phone: [facility] Work Phone: Start: 12-08-2015 Encounter for kate hdez adult medical examination without abnormal findings JUAN A BALBUENA [facility] Procedures Date Procedure Procedure Detail Performing Clinician Start: 11-22-2024 Adult depression scr eening assessment Susan Wiley MARKET GARDENER.CARTON FORMING MACHINE ADJUSTER Work Phone: Start: 03-29-2024 Us pelvic nonobstetr ic image dcmtn limited/f/u Chalino Annalise MARKET GARDENER.CARTON FORMING MACHINE ADJUSTER Work Phone: Start: 03-19-2024 Radiologic exam abdo men 1 view Chalino Annalise MARKET GARDENER.CARTON FORMING MACHINE ADJUSTER Work Phone: Start: 04-12-2023 Ecg routine ecg w/le ast 12 lds i&r only [facility] Provider Start: 04-14-2022 Adult depression scr eening assessment Juan A Balbuena DO Work Phone: Start: 03-31-2022 Radex fingr minimum 2 views Chalino Annalise MARKET GARDENER.CARTON FORMING MACHINE ADJUSTER Work Phone: Start: 12-14-2021 Radex hand minimum 3 views Miranda Mcintosh MARKET GARDENER.CARTON FORMING MACHINE ADJUSTER Work Phone: Start: 01-30-2021 Adult depression scr eening assessment Juan A Balbuena DO Work Phone: Plan of Treatment Date Care Activity Detail Author Start: 12-27-2031 Urine microalbumin profile [facility] Start: 06-25-2031 Subsequent hospital visit by physician 06/25/2031 Hospital Encounter [facility] [address] [place], [place] [id number] [place] [address] Laboratory Start: 09-06-2028 HPV Testing HPV Testing [facility] Start: 09-06-2028 Pap Testing Pap Testing [facility] Start: 09-06-2028 Screening for malignant neoplasm of cervix [facility] Start: 05-19-2026 PAP TESTING PAP TESTING [facility] Start: 12-05-2025 End: 12-05-2025 Patient encounter procedure 12/05/2025 4:00 PM EST Office Visit OB/Gynecology [address] [place], [place] [id number] Jayde Bangura MD [address] [place] [address] Annual OB/Gynecology Comment on above: Annual Start: 11-22-2025 Depression Screening Depression Screening [facility] Start: 11-05-2025 End: 11-05-2025 Patient encounter procedure 11/05/2025 4:00 PM EST Office Visit OB/Gynecology [address] [place] [address] Jayde Bangura MD [address] [place] [address] Annual OB/Gynecology Comment on above: Annual Start: 08-21-2025 Covid-19 Vaccine ( season) Covid-19 Vaccine ( season) [facility] Comment on above: Postponed from 07/07/2024 (Declined at t his time) Start: 08-21-2025 Hepatitis C screening Hepatitis C Screening [facility] Comment on above: Postponed from 2011 (Declined at t his time) Start: 08-21-2025 HIV screening HIV Screening [facility] Comment on above: Postponed from 2011 (Declined at t his time) Start: 08-20-2025 End: 08-20-2025 Patient encounter procedure 08/20/2025 5:40 PM EDT Office Visit Family Medicine [place] [address] [place], [place] [id number] Bushra Gee APRN.CARTON FORMING MACHINE ADJUSTER [address] [place], [place] [id number] Do I or should I get labs? [facility] [place] Comment on above: Do I or should I get labs? Start: 07-23-2025 End: 07-23-2025 Patient encounter procedure 07/23/2025 6:20 PM EDT Office Visit [facility] [place] [address] [place] [address] Juan A Balbuena, [address] [place] [address] [facility] Comment on above: weight loss/ miagranes Start: 07-07-2025 Influenza vaccination [facility] Start: 05-28-2025 End: 05-28-2025 Patient encounter procedure 05/28/2025 4:20 PM EDT Office Visit [facility] [place] [address] [place] [address] Chalino Bob APRN.CARTON FORMING MACHINE ADJUSTER [address] [place] [address] 3 month f/up [facility] Comment on above: 3 month f/up Start: 05-23-2025 End: 07-23-2025 CBC W Auto Differential panel - Blood COMPLETE BLOOD COUNT AND DIFFERENTIAL Lab Routine Well adult exam Expected: 05/23/2025, Expires: 07/23/2025 [facility] Comment on above: Expected: 05/23/2025, Expires: Start: 05-23-2025 End: 07-23-2025 Comprehensive metabolic 2000 panel - Serum or Plasma COMPREHENSIVE METABOLIC PANEL Lab Routine Well adult exam Expected: 05/23/2025, Expires: 07/23/2025 [facility] Work Phone: Comment on above: Expected: 05/23/2025, Expires: Start: 05-23-2025 End: 08-22-2025 Hemoglobin A1c in Blood HEMOGLOBIN A1C Lab Routine Obesity, Class I, BMI 30-34.9 Expected: 05/23/2025, Expires: 08/22/2025 [facility] Comment on above: Expected: 05/23/2025, Expires: Start: 05-23-2025 End: 07-23-2025 Lipid 1996 panel - Serum or Plasma LIPID PANEL, FASTING Lab Routine Encounter for lipid screening for cardiovascular disease Expected: 05/23/2025, Expires: 07/23/2025 [facility] Comment on above: Expected: 05/23/2025, Expires: Start: 05-21-2025 End: 05-21-2025 Patient encounter procedure 05/21/2025 6:00 PM EDT Office Visit [facility] [place] [address] [facility] [place] [address] Bushra Gee APRN.CARTON FORMING MACHINE ADJUSTER [address] [facility], [place] [address] 3 month f/up Family [facility] [place] Comment on above: 3 month f/up Start: 05-05-2025 Influenza vaccination Influenza Vaccine (#1) [facility] Comment on above: Postponed from 07/07/2024 (Declined at t his time) Start: 02-21-2025 End: 02-21-2025 Patient encounter procedure Family Medic [facility] [place] Comment on above: 3 month f/up Start: 11-22-2024 End: 11-22-2024 Patient encounter procedure 11/22/2024 1:00 PM EST Office Visit Family [facility] [place] [address] [facility] [place] [address] Chalino Bob APRN.CARTON FORMING MACHINE ADJUSTER [address] [place] [address] Follow up from previous appt [facility] Comment on above: Follow up from previous appt Start: 10-31-2024 End: 10-31-2024 Patient encounter procedure 10/31/2024 4:00 PM EST Office Visit OB/Gynecology [address] [place] [address] Jayde Bangura MD [address] [facility] [place] [address] Annual Exam OB/Gynecology Comment on above: Annual Exam Start: 10-04-2024 Covid-19 Vaccine (#1) Covid-19 Vaccine (#1) [facility] Comment on above: Postponed from 1993 (Declined at t his time) Start: 10-04-2024 Covid-19 Vaccine ( season) Covid-19 Vaccine ( season) [facility] Comment on above: Postponed from 07/07/2023 (Declined at t his time) Start: 09-09-2024 End: 09-09-2024 Patient encounter procedure 09/09/2024 4:00 PM EST Office Visit OB/Gynecology [address] [place] [address] Jayde Bangura MD [address] [place] [address] Annual Exam OB/Gynecology Comment on above: Annual Exam Start: 08-21-2024 End: 08-21-2024 Patient encounter procedure 08/21/2024 4:20 PM EDT Office Visit Family [facility] [place] [address] [place] [address] Chalino Bob APRN.CARTON FORMING MACHINE ADJUSTER [address] [place] [address] Weight loss meds followup Family [facility] Comment on above: Weight loss meds followup Start: 08-21-2024 Depression Screening Depression Screening [facility] Comment on above: Postponed from 2011 (Declined at t his time) Start: 07-07-2024 Covid-19 Vaccine ( season) Covid-19 Vaccine ( season) [facility] Start: 07-07-2024 Covid-19 Vaccine ( season) Covid-19 Vaccine ( season) [facility] Start: 07-07-2024 Influenza vaccination [facility] Start: 05-22-2024 End: 05-22-2024 Patient encounter procedure 05/22/2024 5:00 PM EDT Office Visit [facility] [place] [address] [place] [address] Juan A Balbuena DO [address] [address] Weight. How to loose it [facility] Comment on above: Weight. How to loose it Start: 05-19-2024 PAP TESTING PAP TESTING [facility] Start: 05-05-2024 Influenza vaccination Influenza Vaccine (#1) [facility] Comment on above: Postponed from 07/07/2023 (Declined at t his time) Start: 03-29-2024 End: 03-29-2024 Patient encounter procedure 03/29/2024 3:15 PM EDT Appointment Radiology [address] [place] [address] LLQ pain [R10.32] Radiology Comment on above: LLQ pain [R10.32] Start: 03-29-2024 End: 03-29-2024 Patient encounter procedure Radiology Comment on above: LLQ pain [R10.32] Start: 03-09-2024 End: 03-09-2024 ambulatory 03/09/2024 8:45 AM EDT Results Only [facility] Draw Station [address] [place] [address] [facility] Station Start: 03-06-2024 End: 06-05-2024 Choriogonadotropin ( test) [Presence] in Urine HCG, QUALITATIVE, URINE Lab Routine LLQ pain Suprapubic pain Change in stool habits Expected: 03/06/2024, Expires: 06/05/2024 [facility] Comment on above: Expected: 03/06/2024, Expires: Start: 03-06-2024 End: 06-05-2024 Urinalysis complete panel - Urine URINALYSIS WITH MICROSCOPIC, REFLEX CULTURE Lab Routine LLQ pain Suprapubic pain Change in stool habits Expected: 03/06/2024, Expires: 06/05/2024 [facility] Comment on above: Expected: 03/06/2024, Expires: Start: 11-06-2023 Behavioral Health Screening Behavioral Health Screening [facility] Start: 07-07-2023 Influenza vaccination [facility] Start: 06-22-2023 End: 08-22-2023 25-hydroxyvitamin D3 [Mass/volume] in Serum or Plasma VITAMIN D 25 HYDROXY Lab Routine Vitamin D deficiency Expected: 06/22/2023, Expires: 08/22/2023 [facility] Work Phone: Comment on above: Expected: 06/22/2023, Expires: 3 Start: 06-22-2023 End: 08-22-2023 CBC W Auto Differential panel - Blood CBC + DIFF Lab Routine Well adult exam Expected: 06/22/2023, Expires: 08/22/2023 [facility] Work Phone: Comment on above: Expected: 06/22/2023, Expires: 3 Start: 06-22-2023 End: 08-22-2023 Comprehensive metabolic 2000 panel - Serum or Plasma COMP METABOLIC PANEL Lab Routine Well adult exam Expected: 06/22/2023, Expires: 08/22/2023 [facility] Work Phone: Comment on above: Expected: 06/22/2023, Expires: Start: 06-22-2023 End: 08-22-2023 Hemoglobin A1c in Blood HGB A1C Lab Routine Screening for diabetes mellitus Expected: 06/22/2023, Expires: 08/22/2023 [facility] Work Phone: Comment on above: Expected: 06/22/2023, Expires: 3 Start: 06-22-2023 End: 08-22-2023 Lipid 1996 panel - Serum or Plasma LIPID PANEL BASIC Lab Routine Encounter for lipid screening for cardiovascular disease Expected: 06/22/2023, Expires: 08/22/2023 [facility] Work Phone: Comment on above: Expected: 06/22/2023, Expires: 3 Start: 06-22-2023 End: 08-22-2023 Thyrotropin [Units/volume] in Serum or Plasma TSH BLD Lab Routine Screening for thyroid disorder Expected: 06/22/2023, Expires: 08/22/2023 [facility] Work Phone: Comment on above: Expected: 06/22/2023, Expires: 3 Start: 05-05-2023 Influenza vaccination INFLUENZA (#1) [facility] Comment on above: Postponed from 07/07/2022 (Declined at t his time) Start: 04-15-2023 COVID-19 VACCINE (#1) COVID-19 VACCINE (#1) [facility] Comment on above: Postponed from 1998 (Declined at t his time) Postponed from 10/05 (Declined at this time) Start: 04-14-2023 Adult depression screening assessment DEPRESSION SCREENING [facility] Start: 04-12-2023 End: 06-12-2023 25-hydroxyvitamin D3 [Mass/volume] in Serum or Plasma VITAMIN D 25 HYDROXY Lab Routine Well adult exam Expected: 04/12/2023, Expires: 06/12/2023 [facility] Work Phone: Comment on above: Expected: 04/12/2023, Expires: 3 Start: 04-12-2023 End: 06-12-2023 C reactive protein [Mass/volume] in Serum or Plasma C-REACTIVE PROTEIN (CRP) Lab Routine Well adult exam Expected: 04/12/2023, Expires: 06/12/2023 [facility] Work Phone: Comment on above: Expected: 04/12/2023, Expires: 3 Start: 04-12-2023 End: 06-12-2023 CBC W Auto Differential panel - Blood CBC + DIFF Lab Routine Well adult exam Expected: 04/12/2023, Expires: 06/12/2023 [facility] Work Phone: Comment on above: Expected: 04/12/2023, Expires: 3 Start: 04-12-2023 End: 06-12-2023 Comprehensive metabolic 2000 panel - Serum or Plasma COMP METABOLIC PANEL Lab Routine Well adult exam Expected: 04/12/2023, Expires: 06/12/2023 [facility] Work Phone: Comment on above: Expected: 04/12/2023, Expires: 3 Start: 04-12-2023 End: 06-12-2023 Hemoglobin A1c in Blood HGB A1C Lab Routine Well adult exam Expected: 04/12/2023, Expires: 06/12/2023 [facility] Work Phone: Comment on above: Expected: 04/12/2023, Expires: 3 Start: 04-12-2023 End: 06-12-2023 Lipid 1996 panel - Serum or Plasma LIPID PANEL BASIC Lab Routine Well adult exam Expected: 04/12/2023, Expires: 06/12/2023 [facility] Work Phone: Comment on above: Expected: 04/12/2023, Expires: 3 Start: 04-12-2023 End: 06-12-2023 Thyrotropin [Units/volume] in Serum or Plasma TSH BLD Lab Routine Well adult exam Expected: 04/12/2023, Expires: 06/12/2023 [facility] Work Phone: Comment on above: Expected: 04/12/2023, Expires: 3 Start: 2023 HPV TESTING HPV TESTING [facility] Start: 02-27-2023 9vhpv vacc 2/3 dose sched im use HUMAN PAPILLOMAVIRUS 9-VALENT HPV IM Immunization/Injection Routine Need for prophylactic vaccination/inoculation against viral disease Expected: 02/27/2023 (Approximate) [facility] Work Phone: Comment on above: Expected: 02/27/2023 (Approximate) Start: 11-06-2022 DEPRESSION ASSESSMENT DEPRESSION ASSESSMENT [facility] Start: 10-30-2022 9vhpv vacc 2/3 dose sched im use HUMAN PAPILLOMAVIRUS 9-VALENT HPV IM Immunization/Injection Routine Need for prophylactic vaccination/inoculation against viral disease Expected: 10/30/2022 (Approximate) [facility] Work Phone: Comment on above: Expected: 10/30/2022 (Approximate) Start: 10-12-2022 End: 12-12-2022 Ferritin [Mass/volume] in Serum or Plasma FERRITIN BLD Lab Routine Fatigue, unspecified type Expected: 10/12/2022, Expires: 12/12/2022 [facility] Work Phone: Comment on above: Expected: 10/12/2022, Expires: 3 Start: 10-12-2022 End: 12-12-2022 Iron and Iron binding capacity panel - Serum or Plasma IRON + TIBC Lab Routine Fatigue, unspecified type Expected: 10/12/2022, Expires: 12/12/2022 [facility] Work Phone: Comment on above: Expected: 10/12/2022, Expires: 3 Start: 07-07-2022 Influenza vaccination [facility] Start: 01-30-2022 Adult depression screening assessment DEPRESSION SCREENING [facility] Start: 2011 Depression Screening Depression Screening [facility] Start: 2011 HEPATITIS C SCREENING HEPATITIS C SCREENING [facility] Start: 2011 Hepatitis C screening Hepatitis C Screening [facility] Start: 2011 HIV SCREENING HIV SCREENING [facility] Start: 2011 HIV screening HIV Screening [facility] Start: 1998 COVID-19 VACCINE (#1) COVID-19 VACCINE (#1) [facility] Start: 1998 COVID-19 VACCINE (1) COVID-19 VACCINE (1) [facility] Start: 1993 COVID-19 VACCINE (#1) COVID-19 VACCINE (#1) [facility] BACTERIAL VAGINOSIS NAAT BACTERI AL VAGINOSIS NAAT Lab Routine Vaginal discharge Ordered: 10/31/2024 [facility] Comment on above: Ordered: 10/31/2024 MILAGROS/TRICHOMONAS NAAT MILAGROS /TRICHOMONAS NAAT Lab Routine Vaginal discharge Ordered: 10/31/2024 [facility] Work Phone: Comment on above: Ordered: 10/31/2024 End: 04-12-2024 ECG COMPLETE ECG COMPLETE ECG Routine Family history of premature coronary heart disease Cardiac murmur, previously undiagnosed 1 Occurrences starting 04/12/2023 until 04/12/2024 [facility] Work Phone: Comment on above: 1 Occurrences starting 04/12/2023 until 04/12/2024 ECG COMPLETE ECG COMPLETE ECG Family history of premature coronary heart disease Cardiac murmur, previously undiagnosed 04/12/2023 4:56 PM EDT [facility] End: 04-12-2024 Echocardiography ECHO Cardiology Routine Family history of premature coronary heart disease Cardiac murmur, previously undiagnosed 1 Occurrences starting 04/12/2023 until 04/12/2024 [facility] Work Phone: Comment on above: 1 Occurrences starting 04/12/2023 until 04/12/2024 Microscopic observat ion [Identifier] in Vaginal fluid by Gram stain BACT/MILAGROS VAG GRAM STAIN Microbiology Routine Vaginal itching 08/31/2022 4:36 PM EDT [facility] Work Phone: PAP TEST PAP TEST Lab Derek lindsey Encounter for gynecological examination (general) (routine) without abnormal findings Screening for cervical cancer Encounter for screening for human papillomavirus (HPV) Ordered: 09/06/2023 [facility] Work Phone: Comment on above: Ordered: 09/06/2023 Therapeutic prophyla ctic/dx injection subq/im THER/PROPH/DIAG INJ, SC/IM Procedures Routine Need for prophylactic vaccination/inoculation against viral disease Ordered: 08/31/2022 [facility] Work Phone: Comment on above: Ordered: 08/31/2022 End: 04-05-2025 US Abdomen limited US ABDOMEN LTD Radiology Routine LLQ pain Suprapubic pain Change in stool habits 1 Occurrences starting 03/06/2024 until 04/05/2025 [facility] Comment on above: 1 Occurrences starting 03/06/2024 until 04/05/2025 End: 04-05-2025 US Pelvis limited US FEMALE PELVIS TRANSABD LTD Radiology Routine LLQ pain Suprapubic pain Change in stool habits 1 Occurrences starting 03/06/2024 until 04/05/2025 [facility] Comment on above: 1 Occurrences starting 03/06/2024 until 04/05/2025 End: 04-05-2025 US Pelvis transvaginal US FEMALE PELVIS TRANSVAG Radiology Routine LLQ pain Suprapubic pain Change in stool habits 1 Occurrences starting 03/06/2024 until 04/05/2025 [facility] Comment on above: 1 Occurrences starting 03/06/2024 until 04/05/2025 End: 04-05-2025 XR Abdomen Supine and Upright XR ABDOMEN 1V SUPINE Radiology Routine LLQ pain Suprapubic pain Change in stool habits 1 Occurrences starting 03/06/2024 until 04/05/2025 [facility] Work Phone: Comment on above: 1 Occurrences starting 03/06/2024 until 04/05/2025 [facility] Immunizations Immunization Date Immunization Notes Care Provider [facility] 03-16-2023 Human Papillomavirus 9-valent vaccine Nurse Wstr Work Phone: [facility] Work Phone: 11-15-2022 Human Papillomavirus 9-valent vaccine Nurse Wstr Work Phone: [facility] Work Phone: 08-31-2022 Human Papillomavirus 9-valent vaccine Jayde Bangura MD Work Phone: [facility] 08-24-2022 influenza, seasonal, injectable Jayde Bangura MD Work Phone: [facility] 08-24-2022 influenza virus vacc ine, unspecified formulation Jayde Bangura MD Work Phone: [facility] 12-27-2021 tetanus toxoid, redu jose diphtheria toxoid, and acellular pertussis vaccine, adsorbed Juan A Balbuena DO Work Phone: [facility] 08-01-2017 influenza, seasonal, injectable Juan A Balbuena DO Work Phone: [facility] Work Phone: 08-04-2014 tetanus toxoid, redu jose diphtheria toxoid, and acellular pertussis vaccine, adsorbed Jayde Bangura MD Work Phone: [facility] Work Phone: 05-11-2005 meningococcal polysaccharide (groups A, C, Y and W-135) diphtheria toxoid conjugate vaccine (MCV4P) Juan A Balbuena DO Work Phone: [facility] Work Phone: 06-16-2003 tetanus and diphther ia toxoids, adsorbed, preservative free, for adult use (2 Lf of tetanus toxoid and 2 Lf of diphtheria toxoid) Juan A Adamsonrison DO Work Phone: [facility] Work Phone: 07-06-1998 measles, mumps and rubella virus vaccine Juan A Balbuena DO Work Phone: [facility] Work Phone: 07-06-1998 poliovirus vaccine, inactivated Juan A Balbuena DO Work Phone: [facility] Work Phone: 05-28-1997 diphtheria, tetanus toxoids and acellular pertussis vaccine Juan A Balbuena DO Work Phone: [facility] Work Phone: 06-24-1996 diphtheria, tetanus toxoids and acellular pertussis vaccine Juan A Balbuena DO Work Phone: [facility] Work Phone: 06-24-1996 poliovirus vaccine, inactivated Juan A Adamsonrison DO Work Phone: [facility] Work Phone: 04-08-1996 DTP-Haemophilus influenzae type b conjugate vaccine Jayde Bangura MD Work Phone: [facility] Work Phone: 04-08-1996 haemophilus influenz ae type b vaccine, conjugate unspecified formulation Juan A Adamsonrison DO Work Phone: [facility] Work Phone: 04-08-1996 hepatitis B vaccine, pediatric or pediatric/adolescent dosage Juan A Adamsonrison DO Work Phone: [facility] Work Phone: 04-08-1996 measles, mumps and rubella virus vaccine Juan A Balbuena DO Work Phone: [facility] Work Phone: 04-08-1996 poliovirus vaccine, inactivated Juan A Balbuena DO Work Phone: [facility] Work Phone: 03-08-1996 diphtheria, tetanus toxoids and acellular pertussis vaccine Juan A Balbuena DO Work Phone: [facility] Work Phone: 05-20-1994 diphtheria, tetanus toxoids and acellular pertussis vaccine Juan A Balbuena DO Work Phone: [facility] Work Phone: 05-20-1994 haemophilus influenz ae type b vaccine, conjugate unspecified formulation Juan A Balbuena DO Work Phone: [facility] Work Phone: 05-20-1994 hepatitis B vaccine, pediatric or pediatric/adolescent dosage Juan A Balbuena DO Work Phone: [facility] Work Phone: 05-20-1994 poliovirus vaccine, inactivated Juan A Balbuena DO Work Phone: [facility] Work Phone: 1993 hepatitis B vaccine, pediatric or pediatric/adolescent dosage Juan A Babluena DO Work Phone: [facility] Work Phone: Payers Date Payer Category Payer Self-pay [id number] 2023 Self-pay 2021 [facility] PPO [id number] 2021 Unknown [employer] PPO [id number] 2021-Present [phone] [address] [place] [address] PPO [id number] 2021 Unknown [employer]SHLEY SALTER SS PPO [id number] 2021-Present [phone] [address] [place] [address] PPO [id number] 2021 Unknown [id number] Unknown [id number] Unknown [id number] Social History Date Type Detail Facility Start: 07-17-2014 End: 08-31-2022 Tobacco smoking status NHIS Never smoked tobacco [facility] Work Phone: Start: 07-17-2014 End: 08-31-2022 Tobacco use and exposure Smokeless tobacco non-user [facility] Work Phone: Start: 01-11-2022 End: 05-21-2025 Alcohol intake Current drinker of alcohol (finding) [facility] Start: 09-10-2020 End: 10-12-2022 History SDOH Alcohol Frequency 3 [facility] Start: 09-10-2020 End: 10-12-2022 History SDOH Alcohol Std Drinks 1 [facility] Start: 01-10-2015 History SDOH Alcohol Comment rare wine [facility] Start: 04-09-2020 End: 10-12-2022 History SDOH Social Connections Phone 5 [facility] Start: 04-09-2020 End: 10-12-2022 History SDOH Social Connections Get Together 2 [facility] Start: 04-09-2020 History SDOH Stress 4 [facility] Start: 04-09-2020 Education 16 [facility] Start: 1993 Sex Assigned At Not on file C [facility] Start: 11-14-2021 End: 09-13-2022 Exposure to SARS-CoV-2 (event) Not sure [facility] Start: 10-12-2022 History SDOH Social Connections [facility] Start: 10-11-2022 End: 11-23-2022 History of Social function [facility] Start: 10-11-2022 End: 11-23-2022 Social connection and isolation panel [facility] Start: 03-24-2014 How often do you att end mormonism or tenriism services? Patient refused [facility] Do you belong to any clubs or organizations such as mormonism groups, unions, fraternal or athletic groups, or school groups? Yes [facility] Are you now , , , , never or living with a partner? [facility] How often to you hav e a drink containing alcohol? 2-4 times a month [facility] How many standard dr inks containing alcohol do you have on a typical day? 1 or 2 [facility] How often do you hav e 6 or more drinks on 1 occasion? Never [facility] Do you feel stress - tense, restless, nervous, or anxious, or unable to sleep at night because your mind is troubled all the time - these days [OSQ] Only a little [facility] (I/We) worried wheth er (my/our) food would run out before (I/we) got money to buy more. DK or Refused [facility] In the past 12 month s, was there a time when you were not able to pay the mortgage or rent on time? No [facility] How often to you hav e a drink containing alcohol? Monthly or less [facility] How hard is it for y ou to pay for the very basics like food, housing, medical care, and heating Somewhat hard [facility] Do you feel stress - tense, restless, nervous, or anxious, or unable to sleep at night because your mind is troubled all the time - these days [OSQ] To some extent [facility] (I/We) worried wheth er (my/our) food would run out before (I/we) got money to buy more. Sometimes true [facility] Are you now , , , , never or living with a partner? [facility] Do you feel stress - tense, restless, nervous, or anxious, or unable to sleep at night because your mind is troubled all the time - these days [OSQ] Rather much [facility] (I/We) worried wheth er (my/our) food would run out before (I/we) got money to buy more. Never true [facility] Medical Equipment Procedure Code Equipment Code Equipment Origin al Text Equipment Identifier Dates use one needle a nd syringe for IM injection of depoprovera q 12 weeks [id number], [id number], [id number] Start: 06-25-2021 End: 08-05-2024 Comment on above: use one needle and s yringe for IM injection of depoprovera q 12 weeks Functional Status Date Assessment Result Facility 01-10-2015 Are you deaf, or do you have serious difficulty hearing No 01/10/2015 11:53 AM Iman Coronel RN [facility] 01-10-2015 Are you blind, or do you have serious difficulty seeing, even when wearing glasses No 01/10/2015 11:53 AM Iman Coronel RN No [facility] 01-10-2015 Do you have serious difficulty walking or climbing stairs No 01/10/2015 11:53 AM Iman Coronel RN No [facility] 01-10-2015 Do you have difficul ty dressing or bathing No 01/10/2015 11:53 AM Iman Coronel RN No [facility] 01-10-2015 Because of a physica l, mental, or emotional condition, do you have difficulty doing errands alone such as visiting a physician's office or shopping No 01/10/2015 11:53 AM Iman Coronel RN No [facility] Mental Status Date Assessment Result Facility 01-10-2015 Because of a physica l, mental, or emotional condition, do you have serious difficulty concentrating, remembering, or making decisions No 01/10/2015 11:53 AM Iman Coronel RN No [facility] Clinical Notes 03-15-2021 to 07-24-2025 Telephone Encounter - Chalino Bob APRN.[employer]INE ADJUSTER - 06/24/2025 3:14 PM EDTTelephone Encounter - [facility]IND[facility] - 06/24/[facility]25 3:14 PM EDTPatient InstructionsPatient Instructions Note Date & Type Note Facility 07-24-2025 Note HNO ID: [id number] Author: JUAN A BALBUENA, DO Service: ? Author Type: Physician Type: Progress Notes Filed: 07/24/2025 08:56 Note Text: CC: Natalee Collado is a 30 year old female who presents to the office to establish care. HPI: Weight Management: - Currently taking phentermine daily - total weight loss of 11-15 lbs over the past year since weight loss meds initiated - Taking metformin once daily at bedtime - Decreased physical activity due to hot weather; not walking as much as should - has been trying to increase her veggie intake - Drinking lots of water; reports low protein intake. - Engages in intermittent fasting, eating between 12:00 and 21:00 besides creamer in her coffee - Snacks at work, often from vending machines. But doesn't buy those things for at home - Has not tried protein shakes; open to trying Premier Protein or [employer]life. Weight loss meds: Metformin since November (1 tab) Phentermine since May 2024 Denies any side effects from meds, no GI upset , no palpitations, no difficulty sleeping URI symptoms for the last 1 week since being at the [facility], no fevers or chills. +sinus pressure on left. No cough, no vomiting or diarrhea. Has been trying over the counter support for cold and increased vitamins and fluids. PAST MEDICAL HISTORY Diagnosis Date Anxiety state PAST SURGICAL HISTORY Procedure Laterality Date PAST SURGICAL HISTORY OF 04/06/2013 [place] teeth REDUCTION OF LARGE BREAST 2019 Social History: SOCIAL HISTORY[1] FAMILY HISTORY Problem Relation Age of Onset Arthritis Mother Heart Mother 53 Asthma Sister other (endometriosis) Sister Osteoporosis Maternal Grandmother Thyroid Maternal Grandmother thyroidectomy Thyroid Maternal Grandfather Heart Maternal Grandfather 50 Diabetes Paternal Grandmother Heart Maternal Aunt 40 Stroke Maternal Aunt 60 Current Outpatient prescriptions: topiramate (TOPAMAX) 25 mg tablet Take 1 tablet by mouth once daily. amoxicillin-clavulanate potassium (AUGMENTIN) 875-125 mg per tablet Take 1 tablet by mouth every 12 hours for 10 days. Phentermine HCl (ADIPEX-P) 37.5 mg tablet Take 1 tablet by mouth once daily for 90 days. BMI 29.49 metFORMIN (GLUCOPHAGE) 500 mg tablet Take 1 tablet by mouth two times a day with meals. medroxyPROGESTERone (DEPO-PROVERA) 150 mg/mL Inject 1 mL intramuscularly every 12 weeks. traZODone (DESYREL) 50 mg tablet Take 0.5 tablets by mouth at bedtime as needed. For insomnia Syringe with Needle, Disp, (SYRINGE 3CC/22GX1) 3 mL 22 gauge x 1 use one needle and syringe for IM injection of depoprovera q 12 weeks magnesium gluconate (MAGONATE) 27 mg (500 mg) tab Take 1 tablet by mouth once daily. Cholecalciferol, Vitamin D3, 125 mcg (5,000 unit) cap Take 1 capsule by mouth once daily. Biotin 10,000 mcg cap Take by mouth. Allergies: ALLERGIES No Known Allergies ROS: See HPI PE: 07/23/25 1812 BP: 120/80 Pulse: 68 Resp: 12 Temp: 36.1 ?C (97 ?F) TempSrc: Left Tympanic Weight: 73.5 kg (162 lb) Height: 162 cm (5' 3.78) Gen: AANDO, NAD, non-toxic appearing, Pleasant, cooperative HEENT: NT/AC, PERRLA, EOMs intact b/l, nares congested b/l and left maxillary sinus TTP, MMM, pharynx without erythema, exudate or lesions. Uvula midline. EACs without erythema or debris. TMs pearly gutierrez with intact landmarks b/l. Neck: supple, No cervical LAD, no thyromegaly, no carotid bruits CV: RRR, normal S1 and S2, no murmurs, no gallops, no rubs, Pulses 2+ and symmetric in UE and LE b/l Lungs: normal respiratory effort, CTA b/l, no wheezing or rhonchi or rales Abd: soft, overweight, NT, ND, +BS, no hepatosplenomegaly MS: FROM all 4 extremities Neuro: CN II-XII intact b/l, strength 5/5 b/l UE and LE, DTRs 2/4 UE and LE, sensation intact. Skin: warm, dry, intact, No rashes or lesions on exposed skin. No edema, normal peripheral pulses ASSESSMENT/PLAN: 1. Well adult exam - ICD9: V70.0, ICD10: Z00.00 (primary diagnosis) - Counseled on healthy diet and regular exercise - Discussed need and benefit for weight loss. BMI 28.00 kg/(m2) 2. Migraine without aura, intractable, without status migrainosus - ICD9: 346.11, ICD10: G43.019 stable 3. Overweight with body mass index (BMI) of 28 to 28.9 in adult - ICD9: 278.02, V85.24, ICD10: E66.3, Z68.28 - Lengthy discussion in office today regarding diet and exercise. Discussed use of small plate to eat meals from, drink 1 glass of water 10-15 minutes prior to eating meal, drink 8 glasses of water daily, eat fresh fruit and vegetable during meal first then lean protein such as grilled/baked chicken breast or fish, limit carbohydrate intake (less pasta, breads, rice and snack foods) as well as limiting sugars (desserts etc). Important to count / track your calories and exercise as well. Continue same medications - TOPIRAMATE 25 MG TABLET - PHENTERMINE 37.5 MG TABLET 4. Dysli (more content not included)... [facility] 06-24-2025 Telephone encounter Note Yes the metformin was already ordered twice daily and should have had refills through August. I resent a new rx for 90 days worth. The following approved medication requests have been transmitted electronically. Requested Prescriptions Signed Prescriptions Disp Refills metFORMIN (GLUCOPHAGE) 500 mg tablet 180 tablet 0 Sig: Take 1 tablet by mouth two times a day with meals. Chalino Bob APRN.CNP [facility] 06-24-2025 Miscellaneous Notes Yes the metformin was already ordered twice daily and should have had refills through August. I resent a new rx for 90 days worth. The following approved medication requests have been transmitted electronically. Requested Prescriptions Signed Prescriptions Disp Refills metFORMIN (GLUCOPHAGE) 500 mg tablet 180 tablet 0 Sig: Take 1 tablet by mouth two times a day with meals. Chalino Bob APRN.[employer]INE ADJUSTER documented in this encounter [facility] 06-24-2025 Telephone encounter Note Pt. informed via My Chart. [facility] 06-24-2025 Miscellaneous Notes Pt. informed via My Chart. Patient had this refilled on 05/20/25 with the correct instructions-Take 1 tab BID. She has refills through 08/20 at the pharmacy. Does she need a 90 day supply? Kathy Taveras PA-C Pt reports she has 1 pill left. The Rx below requested by Janette is incorrect. [facility] to take 1 tab by mouth 2 x's a day and provider set it for med update. Unable to pend new Rx. documented in this encounter [facility] 06-24-2025 Telephone encounter Note Patient had this refilled on 05/20/25 with the correct instructions-Take 1 tab BID. She has refills through 08/20 at the pharmacy. Does she need a 90 day supply? Kathy Taveras PA-C [facility] 06-24-2025 Telephone encounter Note Pt reports she has 1 pill left. The Rx below requested by Janette is incorrect. [facility] to take 1 tab by mouth 2 x's a day and provider set it for med update. Unable to pend new Rx. [facility] 05-23-2025 Telephone encounter Note Notified via [employer]. Nichole Chatman MA [facility] 05-23-2025 Miscellaneous Notes Notified via [employer]. Nichole Chatman MA Labs are placed. These need to be fasting. Thank you, Susan Wiley APRN.[employer]ACHINE ADJUSTER PLEASE SEE PT MESSAGE -- Hi, I have an appointment scheduled in July. Should i have labs and such done? Please advise. documented in this encounter [facility] 05-23-2025 Telephone encounter Note Labs are placed. These need to be fasting. Thank you, Susan Wiley APRN.[employer]ACHINE ADJUSTER [facility] 05-22-2025 Telephone encounter Note PLEASE SEE PT MESSAGE -- Hi, I have an appointment scheduled in July. Should i have labs and such done? Please advise. [facility] 05-22-2025 Telephone encounter Note TURNED INTO TE Annita Schumacher MA [facility] 05-22-2025 Miscellaneous Notes TURNED INTO TE Annita Schumacher MA documented in this encounter [facility] 05-21-2025 Instructions Bushra Gee APRN.CNP - 05/21/2025 6:02 PM EDT Last Wt 05/21/25 : 78.7 kg (173 lb 9.6 oz) 5% weight loss = 165 lbs, 10% weight loss = 156 lbs This really needs to be met to be able to continue the phentermine another 3 months Please schedule physical or wellness exam for your next 3 month visit- you are overdue for this plus labs Premier protein, fairlife, nurri-- good options for protein supplement Goal is 80-100g of protein Drink plenty of water, suggest for weight loss 2-3L/min Take metformin twice daily (with food if able) Take the topamax around the time going into more craving/eating times documented in this encounter [facility] 05-21-2025 Note HNO ID: [id number] Author: BUSHRA GEE APRN.CNP Service: ? Author Type: Nurse Practitioner Type: Progress Notes Filed: 07/25/2025 12:36 Note Text: This is a 30 year old female who presents today with: 3 month follow up Last OV in February with Chalino: Data reviewed ASSESSMENT/PLAN: 1. Migraine without aura, intractable, without status migrainosus - ICD9: 346.11, ICD10: G43.019 (primary diagnosis) - CONSULT FOR ACUPUNCTURE 2. Obesity, Class I, BMI 30-34.9 - ICD9: 278.00, ICD10: E66.811 - Continue current medication - PHENTERMINE 37.5 MG TABLET Follow-up in 3 months for weight check HISTORY OF PRESENT ILLNESS: Weight Management: - Currently taking phentermine daily; reports not as effective as it was at first - Samina gained 3 lbs since last visit in February; total weight loss of 11 lbs over the past year since weight loss meds initiated - Taking metformin once daily at bedtime - Decreased physical activity due to hot weather; not walking as much as should - has been trying to increase her veggie intake - Drinking lots of water; reports low protein intake. - Engages in intermittent fasting, eating between 12:00 and 21:00 besides creamer in her coffee - Snacks at work, often from vending machines. But doesn't buy those things for at home - Has not tried protein shakes; open to trying Premier Protein or [employer]life. Weight loss meds: Metformin since November (1 tab) Phentermine since May 2024 Last month was first time she's gained since being on the meds Denies any side effects from meds, no GI upset , no palpitations, no difficulty sleeping Most Recent 05/23/22 - 05/21/25 05/22/24 16:47 08/21/24 16:30 10/31/24 15:59 11/22/24 08:10 02/21/25 09:17 04/28/25 12:23 05/21/25 17:48 Weight 173 lb 9.6 oz (78.7 kg) 05/21/25 17:48 184 lb (83.5 kg) 176 lb 5.9 oz (80 kg) 174 lb (78.9 kg) 172 lb 6.4 oz (78.2 kg) 170 lb 9.6 oz (77.4 kg) 172 lb 9.9 oz (78.3 kg) 173 lb 9.6 oz (78.7 kg) PAST MEDICAL HISTORY: PAST MEDICAL HISTORY Diagnosis Date Anxiety state PAST SURGICAL HISTORY Procedure Laterality Date PAST SURGICAL HISTORY OF 04/06/2013 [place]es teeth REDUCTION OF LARGE BREAST 2019 ALLERGIES Patient has no known allergies. MEDICATIONS Current Outpatient Medications Medication Sig medroxyPROGESTERone (DEPO-PROVERA) 150 mg/mL Inject 1 mL intramuscularly every 12 weeks. rizatriptan (MAXALT) 10 mg tablet Take 1 tablet at onset on migraine. If no relief in 4 hours, you are able to take one additional dose. Do not exceed 2 within 24 hours. traZODone (DESYREL) 50 mg tablet Take 0.5 tablets by mouth at bedtime as needed. For insomnia Syringe with Needle, Disp, (SYRINGE 3CC/22GX1) 3 mL 22 gauge x 1 use one needle and syringe for IM injection of depoprovera q 12 weeks magnesium gluconate (MAGONATE) 27 mg (500 mg) tab Take 1 tablet by mouth once daily. riboflavin, vitamin B2, (VITAMIN B-2) 100 mg tab Take 4 tablets by mouth once daily. Cholecalciferol, Vitamin D3, 125 mcg (5,000 unit) cap Take 1 capsule by mouth once daily. Biotin 10,000 mcg cap Take by mouth. topiramate (TOPAMAX) 25 mg tablet Take 1 tablet by mouth once daily. metFORMIN (GLUCOPHAGE) 500 mg tablet Take 1 tablet by mouth two times a day with meals. [START ON 06/13/2025] Phentermine HCl (ADIPEX-P) 37.5 mg tablet Take 1 tablet by mouth once daily for 90 days. BMI 29.49 Patient should start on June 13, 2025. No current facility-administered medications for this visit. FAMILY HISTORY Problem Relation Age of Onset Arthritis Mother Heart Mother 53 Asthma Sister other (endometriosis) Sister Osteoporosis Maternal Grandmother Thyroid Maternal Grandmother thyroidectomy Thyroid Maternal Grandfather Heart Maternal Grandfather 50 Diabetes Paternal Grandmother Heart Maternal Aunt 40 Stroke Maternal Aunt 60 Social History Tobacco Use Smoking status: Never Smokeless tobacco: Never Vaping Use Vaping status: Never Used Substance Use Topics Alcohol use: Yes Comment: rare wine Drug use: No REVIEW OF SYSTEMS See HPI EXAM: BP 136/74 (BP Site: Left Arm, BP Cuff Size: Large Adult) Pulse 110 Resp 14 Wt 78.7 kg (173 lb 9.6 oz) LMP 03/15/2023 (Approximate) SpO2 98% BMI 30.00 kg/m? PHYSICAL EXAM: General Appearance: Well appearing, alert, in no acute distress, well-hydrated, well nourished.. Lungs: Lungs clear to auscultation. No wheezing, rhonchi, rales.. Heart: RRR without murmur, gallop, or rubs. No ectopy ASSESSMENT/PLAN: 1. Obesity, Class I, BMI 30-34.9 - ICD9: 278.00, ICD10: E66.811 Weight increasing and Stable - Pharmacological intervention, - Increase Metformin, and - Add Topiramate - TOPIRAMATE 25 MG TABLET once daily time of day to be when she craves or snacks more. This is also dual benefit medication for her migraines which she did not have concerns with this visit. - METFORMIN 500 MG TABLET twice daily (with food if able) - PHENTER (more content not included)... [facility] 05-21-2025 History of Present illness Narrative This is a 30 year old female who presents today with: 3 month follow up Last OV in February with Chalino: Data reviewed ASSESSMENT/PLAN: 1. Migraine without aura, intractable, without status migrainosus - ICD9: 346.11, ICD10: G43.019 (primary diagnosis) - CONSULT FOR ACUPUNCTURE 2. Obesity, Class I, BMI 30-34.9 - ICD9: 278.00, ICD10: E66.811 - Continue current medication - PHENTERMINE 37.5 MG TABLET Follow-up in 3 months for weight check HISTORY OF PRESENT ILLNESS: Weight Management: - Currently taking phentermine daily; reports not as effective as it was at first - Samina gained 3 lbs since last visit in February; total weight loss of 11 lbs over the past year since weight loss meds initiated - Taking metformin once daily at bedtime - Decreased physical activity due to hot weather; not walking as much as should - has been trying to increase her veggie intake - Drinking lots of water; reports low protein intake. - Engages in intermittent fasting, eating between 12:00 and 21:00 besides creamer in her coffee - Snacks at work, often from vending machines. But doesn't buy those things for at home - Has not tried protein shakes; open to trying [employer] or [employer]. Weight loss meds: Metformin since November (1 tab) Phentermine since May 2024 Last month was first time she's gained since being on the meds Denies any side effects from meds, no GI upset , no palpitations, no difficulty sleeping Most Recent 05/23/22 - 05/21/25 05/22/24 16:47 08/21/24 16:30 10/31/24 15:59 11/22/24 08:10 02/21/25 09:17 04/28/25 12:23 05/21/25 17:48 Weight 173 lb 9.6 oz (78.7 kg) 05/21/25 17:48 184 lb (83.5 kg) 176 lb 5.9 oz (80 kg) 174 lb (78.9 kg) 172 lb 6.4 oz (78.2 kg) 170 lb 9.6 oz (77.4 kg) 172 lb 9.9 oz (78.3 kg) 173 lb 9.6 oz (78.7 kg) PAST MEDICAL HISTORY: PAST MEDICAL HISTORY Diagnosis Date Anxiety state PAST SURGICAL HISTORY Procedure Laterality Date PAST SURGICAL HISTORY OF 04/06/2013 [place] teeth REDUCTION OF LARGE BREAST 2019 ALLERGIES Patient has no known allergies. MEDICATIONS Current Outpatient Medications Medication Sig medroxyPROGESTERone (DEPO-PROVERA) 150 mg/mL Inject 1 mL intramuscularly every 12 weeks. rizatriptan (MAXALT) 10 mg tablet Take 1 tablet at onset on migraine. If no relief in 4 hours, you are able to take one additional dose. Do not exceed 2 within 24 hours. traZODone (DESYREL) 50 mg tablet Take 0.5 tablets by mouth at bedtime as needed. For insomnia Syringe with Needle, Disp, (SYRINGE 3CC/22GX1) 3 mL 22 gauge x 1 use one needle and syringe for IM injection of depoprovera q 12 weeks magnesium gluconate (MAGONATE) 27 mg (500 mg) tab Take 1 tablet by mouth once daily. riboflavin, vitamin B2, (VITAMIN B-2) 100 mg tab Take 4 tablets by mouth once daily. Cholecalciferol, Vitamin D3, 125 mcg (5,000 unit) cap Take 1 capsule by mouth once daily. Biotin 10,000 mcg cap Take by mouth. topiramate (TOPAMAX) 25 mg tablet Take 1 tablet by mouth once daily. metFORMIN (GLUCOPHAGE) 500 mg tablet Take 1 tablet by mouth two times a day with meals. [START ON 06/13/2025] Phentermine HCl (ADIPEX-P) 37.5 mg tablet Take 1 tablet by mouth once daily for 90 days. BMI 29.49 Patient should start on June 13, 2025. No current facility-administered medications for this visit. FAMILY HISTORY Problem Relation Age of Onset Arthritis Mother Heart Mother 53 Asthma Sister other (endometriosis) Sister Osteoporosis Maternal Grandmother Thyroid Maternal Grandmother thyroidectomy Thyroid Maternal Grandfather Heart Maternal Grandfather 50 Diabetes Paternal Grandmother Heart Maternal Aunt 40 Stroke Maternal Aunt 60 Social History Tobacco Use Smoking status: Never Smokeless tobacco: Never Vaping Use Vaping status: Never Used Substance Use Topics Alcohol use: Yes Comment: rare wine Drug use: No REVIEW OF SYSTEMS See HPI EXAM: BP 136/74 (BP Site: Left Arm, BP Cuff Size: Large Adult) Pulse 110 Resp 14 Wt 78.7 kg (173 lb 9.6 oz) LMP 03/15/2023 (Approximate) SpO2 98% BMI 30.00 kg/m PHYSICAL EXAM: General Appearance: Well appearing, alert, in no acute distress, well-hydrated, well nourished.. Lungs: Lungs clear to auscultation. No wheezing, rhonchi, rales.. Heart: RRR without murmur, gallop, or rubs. No ectopy ASSESSMENT/PLAN: 1. Obesity, Class I, BMI 30-34.9 - ICD9: 278.00, ICD10: E66.811 Weight increasing and Stable - Pharmacological intervention, - Increase Metformin, and - Add Topiramate - TOPIRAMATE 25 MG TABLET once daily time of day to be when she craves or snacks more - METFORMIN 500 MG TABLET twice daily (with food if able) - PHENTERMINE 37.5 MG TABLET daily - understands weight loss goal needs to be met for continued phentermine at next 3 month visit Last Wt 05/21/25 : 78.7 kg (173 lb 9.6 oz) 5% weight loss = 165 lbs, 10% weight loss = 156 lbs Discussed treatment plan and patient voices understanding. Patient's questions answered appropriately. Medications and potential side effects were discussed and patient voices understanding. Return to the office as scheduled or as needed for worsening/no improvement. Bushra Gee APRN.HERB I spent a total of 35 minutes on the date of the service which included preparing to see the patient, [id number] patient care, completing clinical documentation, obtaining and/or reviewing separately obtained history, performing a medically appropriate examination, counseling and educating the patient/family/caregiver, and ordering medications, tests, or procedures. Recording using ambient [employer] software for draft documentation of the visit was discussed with the patient/authorized kiosk sales representative; all questions welcomed and answered. Patient/authorized kiosk sales representative agreed to proceed documented in this encounter [facility] 04-28-2025 Note HNO ID: [id number] Author: BJ HIGH MD Service: ? Author Type: Physician Type: Progress Notes Filed: 04/28/2025 12:46 Note Text: [facility] Subjective Natalee Collado is a 30 year old female. Patient presents with: Headache: x 3 days Headache: Duration: waxing and waning the last 3 days Location: right parietal (typical location for her migraines) Character: throbbing 5-8/10 Radiation: a little to the occiput Aggravating: light bothers her some Relieving: Maxalt Pain relievers: Advil and Tylenol Associated: history of migraine Pertinent negatives: Denies numbness, weakness, vision change, nausea Headache Review of Systems Neurological: Positive for headaches. Objective BP 120/70 Pulse 104 Temp 37.2 ?C (98.9 ?F) Resp 16 Wt 78.3 kg (172 lb 9.9 oz) LMP 03/15/2023 (Approximate) SpO2 98% BMI 29.83 kg/m? Physical Exam Constitutional: General: She is not in acute distress. HENT: Right Ear: Tympanic membrane and ear canal normal. Left Ear: Tympanic membrane and ear canal normal. Nose: No congestion. Right Sinus: No maxillary sinus tenderness or frontal sinus tenderness. Left Sinus: No maxillary sinus tenderness or frontal sinus tenderness. Mouth/Throat: Mouth: Mucous membranes are moist. Pharynx: No oropharyngeal exudate or posterior oropharyngeal erythema. Eyes: Extraocular Movements: Extraocular movements intact. Conjunctiva/sclera: Conjunctivae normal. Pupils: Pupils are equal, round, and reactive to light. Cardiovascular: Rate and Rhythm: Normal rate and regular rhythm. Heart sounds: No murmur heard. Pulmonary: Effort: No respiratory distress. Breath sounds: No wheezing, rhonchi or rales. Musculoskeletal: Cervical back: Neck supple. Lymphadenopathy: Cervical: No cervical adenopathy. Neurological: General: No focal deficit present. Mental Status: She is alert and oriented to person, place, and time. Cranial Nerves: No cranial nerve deficit. Motor: No weakness. Gait: Gait normal. Deep Tendon Reflexes: Reflexes normal. Psychiatric: Mood and Affect: Mood normal. Thought Content: Thought content normal. {ASSESSMENT/PLAN: 1. Migraine without aura, intractable, without status migrainosus - ICD9: 346.11, ICD10: G43.019 Treat with steroid taper. - PREDNISONE 10 MG TABLET - Potential steroid side effects discussed including: Increased hunger, fluid retention, increased energy, sleep disturbance, mood change, elevated sugar levels. Avoid NSAID's while on steroid treatment (Aleve, Motrin, Advil, ibuprofen, or naproxen). May take acetaminophen (tylenol) as needed for pain relief. She may take Maxalt as prescribed. Seek evaluation in the ER for worsening headache, worsening dizziness, worsening nausea, vision change, numbness, weakness, or speech difficulty. Follow-up with primary care if migraine intensity or frequency continuous to be elevated Bj High MD Differential Diagnoses - migraine headache is more likely for the following reason(s): typical character and location to prior migraines, suggested by HANDP - increased intracranial pressure is less likely for the following reason(s): normal neurological exam Procedures [facility] 04-28-2025 History of Present illness Narrative [facility] Subjective Natalee Collado is a 30 year old female. Patient presents with: Headache: x 3 days Headache: Duration: waxing and waning the last 3 days Location: right parietal (typical location for her migraines) Character: throbbing 5-8/10 Radiation: a little to the occiput Aggravating: light bothers her some Relieving: Maxalt Pain relievers: Advil and Tylenol Associated: history of migraine Pertinent negatives: Denies numbness, weakness, vision change, nausea Headache Review of Systems Neurological: Positive for headaches. Objective BP 120/70 Pulse 104 Temp 37.2 C (98.9 F) Resp 16 Wt 78.3 kg (172 lb 9.9 oz) LMP 03/15/2023 (Approximate) SpO2 98% BMI 29.83 kg/m Physical Exam Constitutional: General: She is not in acute distress. HENT: Right Ear: Tympanic membrane and ear canal normal. Left Ear: Tympanic membrane and ear canal normal. Nose: No congestion. Right Sinus: No maxillary sinus tenderness or frontal sinus tenderness. Left Sinus: No maxillary sinus tenderness or frontal sinus tenderness. Mouth/Throat: Mouth: Mucous membranes are moist. Pharynx: No oropharyngeal exudate or posterior oropharyngeal erythema. Eyes: Extraocular Movements: Extraocular movements intact. Conjunctiva/sclera: Conjunctivae normal. Pupils: Pupils are equal, round, and reactive to light. Cardiovascular: Rate and Rhythm: Normal rate and regular rhythm. Heart sounds: No murmur heard. Pulmonary: Effort: No respiratory distress. Breath sounds: No wheezing, rhonchi or rales. Musculoskeletal: Cervical back: Neck supple. Lymphadenopathy: Cervical: No cervical adenopathy. Neurological: General: No focal deficit present. Mental Status: She is alert and oriented to person, place, and time. Cranial Nerves: No cranial nerve deficit. Motor: No weakness. Gait: Gait normal. Deep Tendon Reflexes: Reflexes normal. Psychiatric: Mood and Affect: Mood normal. Thought Content: Thought content normal. {ASSESSMENT/PLAN: 1. Migraine without aura, intractable, without status migrainosus - ICD9: 346.11, ICD10: G43.019 Treat with steroid taper. - PREDNISONE 10 MG TABLET - Potential steroid side effects discussed including: Increased hunger, fluid retention, increased energy, sleep disturbance, mood change, elevated sugar levels. Avoid NSAID's while on steroid treatment (Aleve, Motrin, Advil, ibuprofen, or naproxen). May take acetaminophen (tylenol) as needed for pain relief. She may take Maxalt as prescribed. Seek evaluation in the ER for worsening headache, worsening dizziness, worsening nausea, vision change, numbness, weakness, or speech difficulty. Follow-up with primary care if migraine intensity or frequency continuous to be elevated Bj High MD Differential Diagnoses - migraine headache is more likely for the following reason(s): typical character and location to prior migraines, suggested by H&P - increased intracranial pressure is less likely for the following reason(s): normal neurological exam Procedures documented in this encounter [facility] 02-21-2025 Telephone encounter Note Order and demographic has been printed and faxed to information below. Courtney Potts MA [facility] 02-21-2025 Miscellaneous Notes Order and demographic has been printed and faxed to information below. Courtney Potts MA Please fax acupuncture order to [facility] in [facility]. Fax is [phone] documented in this encounter [facility] 02-21-2025 Telephone encounter Note Please fax acupuncture order to [facility] in [facility]. Fax is [phone] [facility] 02-21-2025 Note HNO ID: [id number] Author: CHALINO BOB APRN.[employer] Service: ? Author Type: Nurse Practitioner Type: Progress Notes Filed: 02/21/2025 10:08 Note Text: Chief Complaint Patient presents with: F/U 3 Month: Weight- adipex HPI Natalee Collado is a 29 year old female who presents here today for Above Complaints.. Adipex 37.5 mg- tolerating well. Sometimes feels jittery when she takes this, and feels better when she eats something and drinks water. Exercise- tries to keep active, walking her dog. Most Recent 02/23/22 - 02/21/25 10/04/23 16:21 03/06/24 12:20 05/22/24 16:47 08/21/24 16:30 10/31/24 15:59 11/22/24 08:10 02/21/25 09:17 Weight 170 lb 9.6 oz (77.4 kg) 02/21/25 09:17 183 lb 12.8 oz (83.4 kg) 185 lb 12.8 oz (84.3 kg) 184 lb (83.5 kg) 176 lb 5.9 oz (80 kg) 174 lb (78.9 kg) 172 lb 6.4 oz (78.2 kg) 170 lb 9.6 oz (77.4 kg) Migraines- Have been increasing in frequency d/t the weather changes. Taking Maxalt 10mg at onset of migraine which helps Pt would like to try acupuncture for migraines- insurance needs a prior authorization Past medical history, appointments, medications, allergies reviewed. Previous Medical History PAST MEDICAL HISTORY Diagnosis Date Anxiety state Previous Surgical History PAST SURGICAL HISTORY Procedure Laterality Date PAST SURGICAL HISTORY OF 04/06/2013 [place] teeth REDUCTION OF LARGE BREAST 2019 Family History FAMILY HISTORY Problem Relation Age of Onset Arthritis Mother Heart Mother 53 Asthma Sister other (endometriosis) Sister Osteoporosis Maternal Grandmother Thyroid Maternal Grandmother thyroidectomy Thyroid Maternal Grandfather Heart Maternal Grandfather 50 Diabetes Paternal Grandmother Heart Maternal Aunt 40 Stroke Maternal Aunt 60 Patient Allergies ALLERGIES No Known Allergies Current Medications Current Outpatient Medications on File Prior to Visit Medication Sig Phentermine HCl (ADIPEX-P) 37.5 mg tablet Take 1 tablet by mouth once daily for 90 days. BMI 30.48 Patient should start on December 06, 2024. metFORMIN (GLUCOPHAGE) 500 mg tablet Take 1 tablet by mouth daily with dinner. medroxyPROGESTERone (DEPO-PROVERA) 150 mg/mL Inject 1 mL intramuscularly every 12 weeks. rizatriptan (MAXALT) 10 mg tablet Take 1 tablet at onset on migraine. If no relief in 4 hours, you are able to take one additional dose. Do not exceed 2 within 24 hours. traZODone (DESYREL) 50 mg tablet Take 0.5 tablets by mouth at bedtime as needed. For insomnia Syringe with Needle, Disp, (SYRINGE 3CC/22GX1) 3 mL 22 gauge x 1 use one needle and syringe for IM injection of depoprovera q 12 weeks escitalopram oxalate (LEXAPRO) 10 mg tablet Take 1 tablet by mouth daily at bedtime. (Patient not taking: Reported on 02/21/2025) magnesium gluconate (MAGONATE) 27 mg (500 mg) tab Take 1 tablet by mouth once daily. riboflavin, vitamin B2, (VITAMIN B-2) 100 mg tab Take 4 tablets by mouth once daily. Cholecalciferol, Vitamin D3, 125 mcg (5,000 unit) cap Take 1 capsule by mouth once daily. Biotin 10,000 mcg cap Take by mouth. No current facility-administered medications on file prior to visit. Social History Social History Tobacco Use Smoking status: Never Smokeless tobacco: Never Vaping Use Vaping status: Never Used Substance Use Topics Alcohol use: Yes Comment: rare wine Drug use: No Review of Symptoms REVIEW OF SYSTEMS See HPI, otherwise negative EXAM: BP 118/78 (BP Site: Left Arm, BP Position: Sitting, BP Cuff Size: Regular Adult) Pulse 105 Wt 77.4 kg (170 lb 9.6 oz) LMP 03/15/2023 (Approximate) SpO2 99% BMI 29.49 kg/m? General Appearance: Well appearing, alert, in no acute distress, well-hydrated, well nourished.. Lungs: Lungs clear to auscultation. No wheezing, rhonchi, rales.. Heart: RRR without murmur, gallop, or rubs. No ectopy. Psychiatric: [facility], cooperative Health Maintenance List Influenza Vaccine(1) due on 05/05/2025 Hepatitis C Screening due on 08/21/2025 HIV Screening due on 08/21/2025 Covid-19 Vaccine( season) due on 08/21/2025 Depression Screening due on 11/22/2025 Cervical Cancer Screening due on 09/06/2028 DTaP,Tdap,Td Vaccine(7 - Td or Tdap) due on 12/27/2031 Hepatitis B Vaccine Completed Data reviewed ASSESSMENT/PLAN: 1. Migraine without aura, intractable, without status migrainosus - ICD9: 346.11, ICD10: G43.019 (primary diagnosis) - CONSULT FOR ACUPUNCTURE 2. Obesity, Class I, BMI 30-34.9 - ICD9: 278.00, ICD10: E66.811 - Continue current medication - PHENTERMINE 37.5 MG TABLET Follow-up in 3 months for weight check Abbie Franklin [facility] website checked and validated. All prescriptions have been APPROPRIATELY filled. No suspicious activity was identified. 02/21/2025 by Chalino Bob CNP. Attending Note I have personally performed a face to face assessment of the patient and have reviewed the [facility] note and I agree. Other ad (more content not included)... [facility] 02-21-2025 History of Present illness Narrative Chief Complaint Patient presents with: F/U 3 Month: Weight- adipex HPI Natalee Collado is a 29 year old female who presents here today for Above Complaints.. Adipex 37.5 mg- tolerating well. Sometimes feels jittery when she takes this, and feels better when she eats something and drinks water. Exercise- tries to keep active, walking her dog. Most Recent 02/23/22 - 02/21/25 10/04/23 16:21 03/06/24 12:20 05/22/24 16:47 08/21/24 16:30 10/31/24 15:59 11/22/24 08:10 02/21/25 09:17 Weight 170 lb 9.6 oz (77.4 kg) 02/21/25 09:17 183 lb 12.8 oz (83.4 kg) 185 lb 12.8 oz (84.3 kg) 184 lb (83.5 kg) 176 lb 5.9 oz (80 kg) 174 lb (78.9 kg) 172 lb 6.4 oz (78.2 kg) 170 lb 9.6 oz (77.4 kg) Migraines- Have been increasing in frequency d/t the weather changes. Taking Maxalt 10mg at onset of migraine which helps Pt would like to try acupuncture for migraines- insurance needs a prior authorization Past medical history, appointments, medications, allergies reviewed. Previous Medical History PAST MEDICAL HISTORY Diagnosis Date Anxiety state Previous Surgical History PAST SURGICAL HISTORY Procedure Laterality Date PAST SURGICAL HISTORY OF 04/06/2013 [place] REDUCTION OF LARGE BREAST 2019 Family History FAMILY HISTORY Problem Relation Age of Onset Arthritis Mother Heart Mother 53 Asthma Sister other (endometriosis) Sister Osteoporosis Maternal Grandmother Thyroid Maternal Grandmother thyroidectomy Thyroid Maternal Grandfather Heart Maternal Grandfather 50 Diabetes Paternal Grandmother Heart Maternal Aunt 40 Stroke Maternal Aunt 60 Patient Allergies ALLERGIES No Known Allergies Current Medications Current Outpatient Medications on File Prior to Visit Medication Sig Phentermine HCl (ADIPEX-P) 37.5 mg tablet Take 1 tablet by mouth once daily for 90 days. BMI 30.48 Patient should start on December 06, 2024. metFORMIN (GLUCOPHAGE) 500 mg tablet Take 1 tablet by mouth daily with dinner. medroxyPROGESTERone (DEPO-PROVERA) 150 mg/mL Inject 1 mL intramuscularly every 12 weeks. rizatriptan (MAXALT) 10 mg tablet Take 1 tablet at onset on migraine. If no relief in 4 hours, you are able to take one additional dose. Do not exceed 2 within 24 hours. traZODone (DESYREL) 50 mg tablet Take 0.5 tablets by mouth at bedtime as needed. For insomnia Syringe with Needle, Disp, (SYRINGE 3CC/22GX1) 3 mL 22 gauge x 1 use one needle and syringe for IM injection of depoprovera q 12 weeks escitalopram oxalate (LEXAPRO) 10 mg tablet Take 1 tablet by mouth daily at bedtime. (Patient not taking: Reported on 02/21/2025) magnesium gluconate (MAGONATE) 27 mg (500 mg) tab Take 1 tablet by mouth once daily. riboflavin, vitamin B2, (VITAMIN B-2) 100 mg tab Take 4 tablets by mouth once daily. Cholecalciferol, Vitamin D3, 125 mcg (5,000 unit) cap Take 1 capsule by mouth once daily. Biotin 10,000 mcg cap Take by mouth. No current facility-administered medications on file prior to visit. Social History Social History Tobacco Use Smoking status: Never Smokeless tobacco: Never Vaping Use Vaping status: Never Used Substance Use Topics Alcohol use: Yes Comment: rare wine Drug use: No Review of Symptoms REVIEW OF SYSTEMS See HPI, otherwise negative EXAM: BP 118/78 (BP Site: Left Arm, BP Position: Sitting, BP Cuff Size: Regular Adult) Pulse 105 Wt 77.4 kg (170 lb 9.6 oz) LMP 03/15/2023 (Approximate) SpO2 99% BMI 29.49 kg/m General Appearance: Well appearing, alert, in no acute distress, well-hydrated, well nourished.. Lungs: Lungs clear to auscultation. No wheezing, rhonchi, rales.. Heart: RRR without murmur, gallop, or rubs. No ectopy. Psychiatric: [facility], cooperative Health Maintenance List Influenza Vaccine(1) due on 05/05/2025 Hepatitis C Screening due on 08/21/2025 HIV Screening due on 08/21/2025 Covid-19 Vaccine( season) due on 08/21/2025 Depression Screening due on 11/22/2025 Cervical Cancer Screening due on 09/06/2028 DTaP,Tdap,Td Vaccine(7 - Td or Tdap) due on 12/27/2031 Hepatitis B Vaccine Completed Data reviewed ASSESSMENT/PLAN: 1. Migraine without aura, intractable, without status migrainosus - ICD9: 346.11, ICD10: G43.019 (primary diagnosis) - CONSULT FOR ACUPUNCTURE 2. Obesity, Class I, BMI 30-34.9 - ICD9: 278.00, ICD10: E66.811 - Continue current medication - PHENTERMINE 37.5 MG TABLET Follow-up in 3 months for weight check [place] PDMP website checked and validated. All prescriptions have been APPROPRIATELY filled. No suspicious activity was identified. 02/21/2025 by Chalino Bob CNP. Attending Note I have personally performed a face to face assessment of the patient and have reviewed the CHANNING note and I agree. Other additions or changes: As edited Signature: Chalino Bob Date: 02/21/2025 Time: 10:07 AM documented in this encounter [facility] 01-01-2025 Telephone encounter Note Phoned [facility] spoke to Darby and went over notes below from Dr Balbuena with understanding. Phoned patient aware PCP said she could get rx on 01/04/2025 and have notified [facility] already with understanding. [facility] 01-01-2025 Miscellaneous Notes Phoned [facility] spoke to Darby and went over notes below from Dr Balbuena with understanding. Phoned patient aware PCP said she could get rx on 01/04/2025 and have notified [facility] already with understanding. Ok to fill on 01/04/25, please notify pharmacy Juan A Balbuena DO Pt called in asking about medication and if provider would call in to allow her to be able to slate picker early. Please call and advise. Pt reports she is taking Adipex-P 37.5 mg daily. Has refills at [facility] [place]. Reports she is leaving town. Going to [place] for her work. Will run out of adipex before the trip is over. [facility] tells her the earliest they can fill adipex is 01-07-25. Pt is leaving for her trip on 01-04-25. Asking if pcp can send order to [facility] stating it is ok for her to slate picker adipex refill early on 01-05-24? Patient states insurance is not an issue as she pays out of pocket for the medication. Please advise and phone pt with reply. documented in this encounter [facility] 01-01-2025 Telephone encounter Note Ok to fill on 01/04/25, please notify pharmacy Juan A Balbuena DO [facility] 01-01-2025 Telephone encounter Note Pt called in asking about medication and if provider would call in to allow her to be able to slate picker early. Please call and advise. [facility] 12-31-2024 Telephone encounter Note Pt reports she is taking Adipex-P 37.5 mg daily. Has refills at [facility] [place]. Reports she is leaving town. Going to [place] for her work. Will run out of adipex before the trip is over. [facility] tells her the earliest they can fill adipex is 01-07-25. Pt is leaving for her trip on 01-04-25. Asking if pcp can send order to [facility] stating it is ok for her to [place] picker adipex refill early on 01-05-24? Patient states insurance is not an issue as she pays out of pocket for the medication. Please advise and phone pt with reply. [facility] 11-22-2024 Note HNO ID: [id number] Author: SUSAN WILEY APRN.[employer]INE ADJUSTER Service: ? Author Type: Nurse Practitioner Type: Progress Notes Filed: 11/22/2024 08:43 Note Text: Chief Complaint Patient presents with: Follow Up HPI Naatlee Collado is a 29 year old female who presents here today for Above Complaints. Samina is an established patient of Dr. Balbuena, and myself. Concerns today... Weight management: Has been on adipex regimen x 6 months. Down 4 lbs since last visit. Has lost a total of about 8-9 lbs since starting adipex. Goal is to lose 15 lbs total. Has noticed clothes fitting better/looser R shoulder discomfort x a few days. Feels like muscle is tight. Some discomfort with movement of R arm. Has been massaging area with tennis ball which does help. No other concerns or complaints. Past medical history, appointments, medications, allergies reviewed. Previous Medical History PAST MEDICAL HISTORY Diagnosis Date Anxiety state Previous Surgical History PAST SURGICAL HISTORY Procedure Laterality Date PAST SURGICAL HISTORY OF 04/06/2013 [place] teeth REDUCTION OF LARGE BREAST 2019 Family History FAMILY HISTORY Problem Relation Age of Onset Arthritis Mother Heart Mother 53 Asthma Sister other (endometriosis) Sister Osteoporosis Maternal Grandmother Thyroid Maternal Grandmother thyroidectomy Thyroid Maternal Grandfather Heart Maternal Grandfather 50 Diabetes Paternal Grandmother Heart Maternal Aunt 40 Stroke Maternal Aunt 60 Patient Allergies ALLERGIES No Known Allergies Current Medications Current Outpatient Medications on File Prior to Visit Medication Sig medroxyPROGESTERone (DEPO-PROVERA) 150 mg/mL Inject 1 mL intramuscularly every 12 weeks. Phentermine HCl (ADIPEX-P) 37.5 mg tablet Take 1 tablet by mouth once daily for 90 days. BMI 30.48 rizatriptan (MAXALT) 10 mg tablet Take 1 tablet at onset on migraine. If no relief in 4 hours, you are able to take one additional dose. Do not exceed 2 within 24 hours. traZODone (DESYREL) 50 mg tablet Take 0.5 tablets by mouth at bedtime as needed. For insomnia Syringe with Needle, Disp, (SYRINGE 3CC/22GX1) 3 mL 22 gauge x 1 use one needle and syringe for IM injection of depoprovera q 12 weeks metFORMIN (GLUCOPHAGE) 500 mg tablet Take 1 tablet by mouth daily with dinner. escitalopram oxalate (LEXAPRO) 10 mg tablet Take 1 tablet by mouth daily at bedtime. magnesium gluconate (MAGONATE) 27 mg (500 mg) tab Take 1 tablet by mouth once daily. riboflavin, vitamin B2, (VITAMIN B-2) 100 mg tab Take 4 tablets by mouth once daily. Cholecalciferol, Vitamin D3, 125 mcg (5,000 unit) cap Take 1 capsule by mouth once daily. Biotin 10,000 mcg cap Take by mouth. No current facility-administered medications on file prior to visit. Social History Social History Tobacco Use Smoking status: Never Smokeless tobacco: Never Vaping Use Vaping status: Never Used Substance Use Topics Alcohol use: Yes Comment: rare wine Drug use: No REVIEW OF SYSTEMS: as above Reviewed relevant PMHx, PSHx, Social Hx, current medications and allergies. Review of Symptoms REVIEW OF SYSTEMS See HPI. EXAM: BP 128/68 (BP Site: Left Arm, BP Position: Sitting, BP Cuff Size: Large Adult) Pulse 95 Resp 12 Wt 78.2 kg (172 lb 6.4 oz) LMP 03/15/2023 (Approximate) SpO2 99% BMI 29.80 kg/m? General Appearance: Well appearing, alert, in no acute distress, well-hydrated, well nourished.. Skin: Skin color, texture, turgor normal, no suspicious rashes or lesions. Head: Normocephalic, no masses, lesions, tenderness or abnormalities. Lungs: Lungs clear to auscultation. No wheezing, rhonchi, rales.. Heart: RRR without murmur, gallop, or rubs. No ectopy. Extremities: No deformities, edema, skin discoloration, clubbing or cyanosis. Good capillary refill. , Positive findings: joint location: on right shoulder painful movement. Health Maintenance List Depression Screening Never done Influenza Vaccine(1) due on 05/05/2025 Hepatitis C Screening due on 08/21/2025 HIV Screening due on 08/21/2025 Covid-19 Vaccine( season) due on 08/21/2025 Cervical Cancer Screening due on 09/06/2028 DTaP,Tdap,Td Vaccine(7 - Td or Tdap) due on 12/27/2031 Hepatitis B Vaccine Completed HPV Vaccine Completed ASSESSMENT/PLAN: 1. Obesity, Class I, BMI 30-34.9 - ICD9: 278.00, ICD10: E66.811 (primary diagnosis) Stable. Weight decreasing. Continue on adipex regimen. RTO in 3 months - PHENTERMINE 37.5 MG TABLET 2. Screening for depression - ICD9: V79.0, ICD10: Z13.31 - DEPRESSION SCREENING 3. Class 1 obesity with body mass index (BMI) of 31.0 to 31.9 in adult, unspecified obesity type, unspecified whether serious comorbidity present - ICD9: 278.00, V85.31, ICD10: E66.811, Z68.31 Weight decreasing - Behavioral intervention, - Pharmacological intervention, - Eat well program, and - Continue curr (more content not included)... [facility] 11-22-2024 History of Present illness Narrative Chief Complaint Patient presents with: Follow Up HPI Natalee Collado is a 29 year old female who presents here today for Above Complaints. Samina is an established patient of Dr. Sree DO and myself. Concerns today... Weight management: Has been on adipex regimen x 6 months. Down 4 lbs since last visit. Has lost a total of about 8-9 lbs since starting adipex. Goal is to lose 15 lbs total. Has noticed clothes fitting better/looser R shoulder discomfort x a few days. Feels like muscle is tight. Some discomfort with movement of R arm. Has been massaging area with tennis ball which does help. No other concerns or complaints. Past medical history, appointments, medications, allergies reviewed. Previous Medical History PAST MEDICAL HISTORY Diagnosis Date Anxiety state Previous Surgical History PAST SURGICAL HISTORY Procedure Laterality Date PAST SURGICAL HISTORY OF 04/06/2013 [place] teeth REDUCTION OF LARGE BREAST 2019 Family History FAMILY HISTORY Problem Relation Age of Onset Arthritis Mother Heart Mother 53 Asthma Sister other (endometriosis) Sister Osteoporosis Maternal Grandmother Thyroid Maternal Grandmother thyroidectomy Thyroid Maternal Grandfather Heart Maternal Grandfather 50 Diabetes Paternal Grandmother Heart Maternal Aunt 40 Stroke Maternal Aunt 60 Patient Allergies ALLERGIES No Known Allergies Current Medications Current Outpatient Medications on File Prior to Visit Medication Sig medroxyPROGESTERone (DEPO-PROVERA) 150 mg/mL Inject 1 mL intramuscularly every 12 weeks. Phentermine HCl (ADIPEX-P) 37.5 mg tablet Take 1 tablet by mouth once daily for 90 days. BMI 30.48 rizatriptan (MAXALT) 10 mg tablet Take 1 tablet at onset on migraine. If no relief in 4 hours, you are able to take one additional dose. Do not exceed 2 within 24 hours. traZODone (DESYREL) 50 mg tablet Take 0.5 tablets by mouth at bedtime as needed. For insomnia Syringe with Needle, Disp, (SYRINGE 3CC/22GX1) 3 mL 22 gauge x 1 use one needle and syringe for IM injection of depoprovera q 12 weeks metFORMIN (GLUCOPHAGE) 500 mg tablet Take 1 tablet by mouth daily with dinner. escitalopram oxalate (LEXAPRO) 10 mg tablet Take 1 tablet by mouth daily at bedtime. magnesium gluconate (MAGONATE) 27 mg (500 mg) tab Take 1 tablet by mouth once daily. riboflavin, vitamin B2, (VITAMIN B-2) 100 mg tab Take 4 tablets by mouth once daily. Cholecalciferol, Vitamin D3, 125 mcg (5,000 unit) cap Take 1 capsule by mouth once daily. Biotin 10,000 mcg cap Take by mouth. No current facility-administered medications on file prior to visit. Social History Social History Tobacco Use Smoking status: Never Smokeless tobacco: Never Vaping Use Vaping status: Never Used Substance Use Topics Alcohol use: Yes Comment: rare wine Drug use: No REVIEW OF SYSTEMS: as above Reviewed relevant PMHx, PSHx, Social Hx, current medications and allergies. Review of Symptoms REVIEW OF SYSTEMS See HPI. EXAM: BP 128/68 (BP Site: Left Arm, BP Position: Sitting, BP Cuff Size: Large Adult) Pulse 95 Resp 12 Wt 78.2 kg (172 lb 6.4 oz) LMP 03/15/2023 (Approximate) SpO2 99% BMI 29.80 kg/m General Appearance: Well appearing, alert, in no acute distress, well-hydrated, well nourished.. Skin: Skin color, texture, turgor normal, no suspicious rashes or lesions. Head: Normocephalic, no masses, lesions, tenderness or abnormalities. Lungs: Lungs clear to auscultation. No wheezing, rhonchi, rales.. Heart: RRR without murmur, gallop, or rubs. No ectopy. Extremities: No deformities, edema, skin discoloration, clubbing or cyanosis. Good capillary refill. , Positive findings: joint location: on right shoulder painful movement. Health Maintenance List Depression Screening Never done Influenza Vaccine(1) due on 05/05/2025 Hepatitis C Screening due on 08/21/2025 HIV Screening due on 08/21/2025 Covid-19 Vaccine( season) due on 08/21/2025 Cervical Cancer Screening due on 09/06/2028 DTaP,Tdap,Td Vaccine(7 - Td or Tdap) due on 12/27/2031 Hepatitis B Vaccine Completed HPV Vaccine Completed ASSESSMENT/PLAN: 1. Obesity, Class I, BMI 30-34.9 - ICD9: 278.00, ICD10: E66.811 (primary diagnosis) Stable. Weight decreasing. Continue on adipex regimen. RTO in 3 months - PHENTERMINE 37.5 MG TABLET 2. Screening for depression - ICD9: V79.0, ICD10: Z13.31 - DEPRESSION SCREENING 3. Class 1 obesity with body mass index (BMI) of 31.0 to 31.9 in adult, unspecified obesity type, unspecified whether serious comorbidity present - ICD9: 278.00, V85.31, ICD10: E66.811, Z68.31 Weight decreasing - Behavioral intervention, - Pharmacological intervention, - Eat well program, and - Continue current medications - METFORMIN 500 MG TABLET 4. Muscle strain - ICD9: 848.9, ICD10: T14.8XXA Flexeril TID as needed for discomfort. Continue to use tylenol or Otc NSAIDs as needed. Continue to use massage therapy to area. - CYCLOBENZAPRINE 10 MG TABLET RTO in 3 months, sooner if needed. Prescription instructions reviewed with patient as applicable. Potential red flag symptoms discussed with the patient. Reviewed appropriate action plan to take if red flag symptoms occur. Patient agreeable to treatment plan. Susan Abernathy APRN.[employer]INE ADJUSTER [address] [place] [address] documented in this encounter [facility] 10-31-2024 Note Addended by: JAYDE BANGURA on: 10/31/2024 04:45 PM Modules accepted: Orders [facility] 10-31-2024 Miscellaneous Notes Addended by: JAYDE BANGURA on: 10/31/2024 04:45 PM Modules accepted: Orders Addended by: KEESHA MCGOVERN on: 10/31/2024 04:38 PM Modules accepted: Orders documented in this encounter [facility] 10-31-2024 Note Addended by: Sharron MCGOVERN on: 10/31/2024 04:38 PM Modules accepted: Orders [facility] 10-31-2024 Note HNO ID: [id number] Author: JAYDE BANGURA MD Service: ? Author Type: Physician Type: Progress Notes Filed: 10/31/2024 16:22 Note Text: Samina is a 29 year old who presents for an annual gynecologic exam without complaints. On depo Still get period: rare Bleeding amount bothersome: No Bleeding between periods: No Period symptoms: Acne; Cramps control frequency: Always HPV vaccine: Yes; 09/11/24 HPV:N/A Last pap smear: History of abnormal pap: No, all prior PAP smears have been normal Bothersome pelvic pain: No OB History T0 L0 SAB0 IAB0 Ectopic0 Multiple0 Live Births0 Casino Manager History LMP: 03/15/2023 (Approximate), Injection Age at Menarche: 10 Age at First : Age at Menopause: Casino Manager History Comments: Sexual Activity: Yes; Male Contraception: Condom, Injection Menstrual Tracking History Flowsheet Row Office Visit from 10/31/2024 in OB/Gynecology Period Cycle (Days) 3 Period Duration (Days) 4 Menstrual Flow Moderate PAST MEDICAL HISTORY Diagnosis Date Anxiety state PAST SURGICAL HISTORY Procedure Laterality Date PAST SURGICAL HISTORY OF 04/06/2013 [place] teeth REDUCTION OF LARGE BREAST 2019 FAMILY HISTORY Problem Relation Age of Onset Arthritis Mother Heart Mother 53 Asthma Sister other (endometriosis) Sister Osteoporosis Maternal Grandmother Thyroid Maternal Grandmother thyroidectomy Thyroid Maternal Grandfather Heart Maternal Grandfather 50 Diabetes Paternal Grandmother Heart Maternal Aunt 40 Stroke Maternal Aunt 60 SOCIAL HISTORY Social History Tobacco Use Smoking status: Never Smokeless tobacco: Never Vaping Use Vaping status: Never Used Substance Use Topics Alcohol use: Yes Comment: rare wine Drug use: No REVIEW OF SYSTEMS Abdomen: No abdominal pain, nausea, vomiting, diarrhea, or constipation. No bloating, early satiety, indigestion, or increased flatulence. Bladder: No dysuria, gross hematuria, urinary frequency, urinary urgency, or incontinence. Breast: No breast lumps, nipple d/c, overlying skin changes, redness or skin retraction. Allergies and current medication updated:Yes SENSITIVE EXAM: The sensitive examination was discussed with the Patient or Patient's Authorized Doctor Of Naturopathic Medicine. As applicable, any other physician, advance practice provider, medical student, or other health professional student that will be observing or involved in the sensitive examination for educational or training purposes was discussed with the Patient or Authorized Doctor Of Naturopathic Medicine. The Patient or Authorized Doctor Of Naturopathic Medicine has agreed to proceed with the sensitive examination. (Sensitive examination includes inspection and/or palpation of the breasts, pelvis, prostate and anorectal regions). EXAM: BP 110/74 Wt 174 lb (78.9kg) LMP 03/15/2023 GENERAL: pleasant, female in no apparent distress HEENT: Normocephalic, atraumatic, mucus membranes moist, and no lesions NECK: Supple, full range of motion, no adenopathy, and thyroid normal DERMATOLOGY: Normal, without lesions, non-icteric, and non-hirsute BREAST: soft, non-tender, symmetric, no dominant mass, normal nipple-areolar complex, no lymphadenopathy, and no nipple discharge CHEST: Normal inspiratory effort ABDOMEN: soft, non-tender, and no masses PELVIC: external genitalia normal, normal Bartholin's glands, urethra, [place]'s glands, no vulvar lesions, no cervical lesions, good vaginal support, physiologic discharge present, normal appearing perineal body and perianal region BIMANUAL: uterus normal size, shape and consistency, no adnexal masses, and non-tender RECTOVAGINAL: deferred. NEURO: alert and oriented x3,exam grossly non-focal EXTREMITIES: normal ASSESSMENT/PLAN: 1) Health maintenance: Pap/HPV up to date. 2) Contraception: Depo Provera. Contraceptive options reviewed and information provided. 3) STD screening: Declined STD check. 4) Follow up one year or sooner as needed Jayde Bangura MD [facility] 10-31-2024 History of Present illness Narrative Samina is a 29 year old who presents for an annual gynecologic exam without complaints. On depo Still get period: rare Bleeding amount bothersome: No Bleeding between periods: No Period symptoms: Acne; Cramps control frequency: Always HPV vaccine: Yes; 09/11/24 HPV:N/A Last pap smear: History of abnormal pap: No, all prior PAP smears have been normal Bothersome pelvic pain: No OB History T0 L0 SAB0 IAB0 Ectopic0 Multiple0 Live Births0 Casino Manager History LMP: 03/15/2023 (Approximate), Injection Age at Menarche: 10 Age at First : Age at Menopause: Casino Manager History Comments: Sexual Activity: Yes; Male Contraception: Condom, Injection Menstrual Tracking History Flowsheet Row Office Visit from 10/31/2024 in OB/Gynecology Period Cycle (Days) 3 Period Duration (Days) 4 Menstrual Flow Moderate PAST MEDICAL HISTORY Diagnosis Date Anxiety state PAST SURGICAL HISTORY Procedure Laterality Date PAST SURGICAL HISTORY OF 04/06/2013 [place] teeth REDUCTION OF LARGE BREAST 2019 FAMILY HISTORY Problem Relation Age of Onset Arthritis Mother Heart Mother 53 Asthma Sister other (endometriosis) Sister Osteoporosis Maternal Grandmother Thyroid Maternal Grandmother thyroidectomy Thyroid Maternal Grandfather Heart Maternal Grandfather 50 Diabetes Paternal Grandmother Heart Maternal Aunt 40 Stroke Maternal Aunt 60 SOCIAL HISTORY Social History Tobacco Use Smoking status: Never Smokeless tobacco: Never Vaping Use Vaping status: Never Used Substance Use Topics Alcohol use: Yes Comment: rare wine Drug use: No REVIEW OF SYSTEMS Abdomen: No abdominal pain, nausea, vomiting, diarrhea, or constipation. No bloating, early satiety, indigestion, or increased flatulence. Bladder: No dysuria, gross hematuria, urinary frequency, urinary urgency, or incontinence. Breast: No breast lumps, nipple d/c, overlying skin changes, redness or skin retraction. Allergies and current medication updated:Yes SENSITIVE EXAM: The sensitive examination was discussed with the Patient or Patient's Authorized Doctor Of Naturopathic Medicine. As applicable, any other physician, advance practice provider, medical student, or other health professional student that will be observing or involved in the sensitive examination for educational or training purposes was discussed with the Patient or Authorized Doctor Of Naturopathic Medicine. The Patient or Authorized Doctor Of Naturopathic Medicine has agreed to proceed with the sensitive examination. (Sensitive examination includes inspection and/or palpation of the breasts, pelvis, prostate and anorectal regions). EXAM: BP 110/74 Wt 174 lb (78.9kg) LMP 03/15/2023 GENERAL: pleasant, female in no apparent distress HEENT: Normocephalic, atraumatic, mucus membranes moist, and no lesions NECK: Supple, full range of motion, no adenopathy, and thyroid normal DERMATOLOGY: Normal, without lesions, non-icteric, and non-hirsute BREAST: soft, non-tender, symmetric, no dominant mass, normal nipple-areolar complex, no lymphadenopathy, and no nipple discharge CHEST: Normal inspiratory effort ABDOMEN: soft, non-tender, and no masses PELVIC: external genitalia normal, normal Bartholin's glands, urethra, [place]'s glands, no vulvar lesions, no cervical lesions, good vaginal support, physiologic discharge present, normal appearing perineal body and perianal region BIMANUAL: uterus normal size, shape and consistency, no adnexal masses, and non-tender RECTOVAGINAL: deferred. NEURO: alert and oriented x3,exam grossly non-focal EXTREMITIES: normal ASSESSMENT/PLAN: 1) Health maintenance: Pap/HPV up to date. 2) Contraception: Depo Provera. Contraceptive options reviewed and information provided. 3) STD screening: Declined STD check. 4) Follow up one year or sooner as needed Jayde Bangura MD documented in this encounter [facility] 10-07-2024 Miscellaneous Notes Prescription Refill Information The patient has been identified by name and date of : Yes Caregiver verified no other encounters exist for this prescription request: Yes Caregiver confirmed with patient/requestor that no other refills are due, in the near future, with this provider at this time: Yes The last office visit in the department: 08/21/24 Does the patient have a future office visit with this provider/department: Yes, 11/22/24 Requested Prescriptions Pending Prescriptions Disp Refills rizatriptan (MAXALT) 10 mg tablet 12 tablet 5 Sig: Take 1 tablet at onset on migraine. If no relief in 4 hours, you are able to take one additional dose. Do not exceed 2 within 24 hours. Fredy Georges LPN October 07, 2024 4:54 PM documented in this encounter [facility] 10-07-2024 Telephone encounter Note Prescription Refill Information The patient has been identified by name and date of : Yes Caregiver verified no other encounters exist for this prescription request: Yes Caregiver confirmed with patient/requestor that no other refills are due, in the near future, with this provider at this time: Yes The last office visit in the department: 08/21/24 Does the patient have a future office visit with this provider/department: Yes, 11/22/24 Requested Prescriptions Pending Prescriptions Disp Refills rizatriptan (MAXALT) 10 mg tablet 12 tablet 5 Sig: Take 1 tablet at onset on migraine. If no relief in 4 hours, you are able to take one additional dose. Do not exceed 2 within 24 hours. Fredy Georges LPN October 07, 2024 4:54 PM [facility] 10-07-2024 Telephone encounter Note Prescription Refill Information The patient has been identified by name and date of : Yes Caregiver verified no other encounters exist for this prescription request: Yes Caregiver confirmed with patient/requestor that no other refills are due, in the near future, with this provider at this time: Yes The last office visit in the department: 08/21/24 Does the patient have a future office visit with this provider/department: Yes, 11/22/24 Requested Prescriptions Pending Prescriptions Disp Refills Phentermine HCl (ADIPEX-P) 37.5 mg tablet 30 tablet 2 Sig: Take 1 tablet by mouth once daily for 90 days. BMI 30.48 Fredy Georges LPN October 07, 2024 4:53 PM [facility] 10-07-2024 Miscellaneous Notes Prescription Refill Information The patient has been identified by name and date of : Yes Caregiver verified no other encounters exist for this prescription request: Yes Caregiver confirmed with patient/requestor that no other refills are due, in the near future, with this provider at this time: Yes The last office visit in the department: 08/21/24 Does the patient have a future office visit with this provider/department: Yes, 11/22/24 Requested Prescriptions Pending Prescriptions Disp Refills Phentermine HCl (ADIPEX-P) 37.5 mg tablet 30 tablet 2 Sig: Take 1 tablet by mouth once daily for 90 days. BMI 30.48 Fredy Georges LPN October 07, 2024 4:53 PM documented in this encounter [facility] 08-21-2024 Note HNO ID: [id number] Author: CHALINO BOB APRN.CARTON FORMING MACHINE ADJUSTER Service: ? Author Type: Nurse Practitioner Type: Progress Notes Filed: 08/21/2024 17:44 Note Text: Chief Complaint Patient presents with: Weight Check HPI Natalee Collado is a 29 year old female who presents here today for Above Complaints.. Adipex, Lexapro, metformin-when first started taking this felt weird; just a little off. Tolerating well now, no concerning side effects. Does notice pants are a little looser. Diet-trying to drink more water, eat a little healthier. Definitely notices a decreased appetite. Exercise-outside walking more with her dog. Insomnia-trazodone, takes rarely at bedtime prn. Past medical history, appointments, medications, allergies reviewed. Previous Medical History PAST MEDICAL HISTORY Diagnosis Date Anxiety state Previous Surgical History PAST SURGICAL HISTORY Procedure Laterality Date PAST SURGICAL HISTORY OF 04/06/2013 [place] teeth REDUCTION OF LARGE BREAST 2019 Family History FAMILY HISTORY Problem Relation Age of Onset Arthritis Mother Heart Mother 53 Asthma Sister other (endometriosis) Sister Osteoporosis Maternal Grandmother Thyroid Maternal Grandmother thyroidectomy Thyroid Maternal Grandfather Heart Maternal Grandfather 50 Diabetes Paternal Grandmother Heart Maternal Aunt 40 Stroke Maternal Aunt 60 Patient Allergies ALLERGIES No Known Allergies Current Medications Current Outpatient Medications on File Prior to Visit Medication Sig medroxyPROGESTERone (DEPO-PROVERA) 150 mg/mL Inject 1 mL intramuscularly every 12 weeks. Syringe with Needle, Disp, (SYRINGE 3CC/22GX1) 3 mL 22 gauge x 1 use one needle and syringe for IM injection of depoprovera q 12 weeks metFORMIN (GLUCOPHAGE) 500 mg tablet Take 1 tablet by mouth daily with dinner. rizatriptan (MAXALT) 10 mg tablet Take 1 tablet at onset on migraine. If no relief in 4 hours, you are able to take one additional dose. Do not exceed 2 within 24 hours. escitalopram oxalate (LEXAPRO) 10 mg tablet Take 1 tablet by mouth daily at bedtime. magnesium gluconate (MAGONATE) 27 mg (500 mg) tab Take 1 tablet by mouth once daily. riboflavin, vitamin B2, (VITAMIN B-2) 100 mg tab Take 4 tablets by mouth once daily. Cholecalciferol, Vitamin D3, 125 mcg (5,000 unit) cap Take 1 capsule by mouth once daily. Biotin 10,000 mcg cap Take by mouth. traZODone (DESYREL) 50 mg tablet Take 1 tablet by mouth daily at bedtime. For insomnia No current facility-administered medications on file prior to visit. Social History Social History Tobacco Use Smoking status: Never Smokeless tobacco: Never Vaping Use Vaping status: Never Used Substance Use Topics Alcohol use: Yes Comment: rare wine Drug use: No Review of Symptoms REVIEW OF SYSTEMS See HPI, otherwise negative EXAM: BP 118/76 (BP Site: Left Arm, BP Position: Sitting, BP Cuff Size: Regular Adult) Pulse 78 Resp 16 Wt 80 kg (176 lb 5.9 oz) LMP 03/15/2023 (Approximate) SpO2 98% BMI 30.48 kg/m? General Appearance: Well appearing, alert, in no acute distress, well-hydrated, well nourished. and Obese. Lungs: Lungs clear to auscultation. No wheezing, rhonchi, rales.. Heart: RRR without murmur, gallop, or rubs. No ectopy. Psychiatric: pleasant, cooperative. Health Maintenance List Depression Screening Never done Hepatitis C Screening Never done HIV Screening Never done Influenza Vaccine(1) due on 07/07/2024 Covid-19 Vaccine(2023- season) Never done Cervical Cancer Screening due on 09/06/2028 DTaP,Tdap,Td Vaccine(7 - Td or Tdap) due on 12/27/2031 Hepatitis B Vaccine Completed HPV Vaccine Completed Data reviewed Previous records, office notes, PDMP report PDMP website checked and validated. All prescriptions have been APPROPRIATELY filled. No suspicious activity was identified. 08/21/2024 by Chalino Bob CNP. ASSESSMENT/PLAN: 1. Class 1 obesity with body mass index (BMI) of 30.0 to 30.9 in adult, unspecified obesity type, unspecified whether serious comorbidity present - ICD9: 278.00, V85.30, ICD10: E66.811, Z68.30 (primary diagnosis) Continue Adipex, working on diet and exercise F/u in the office in 3 months 2. FABIENNE (generalized anxiety disorder) - ICD9: 300.02, ICD10: F41.1 Continue Lexapro 10mg qhs 3. Situational insomnia - ICD9: 307.41, ICD10: F51.09 Continue Lexapro 10mg qhs Continue prn trazodone 25-50mg Chalino Bob APRN.HERB [facility] 08-21-2024 History of Present illness Narrative Chief Complaint Patient presents with: Weight Check HPI Natalee Collado is a 29 year old female who presents here today for Above Complaints.. Adipex, Lexapro, metformin-when first started taking this felt weird; just a little off. Tolerating well now, no concerning side effects. Does notice pants are a little looser. Diet-trying to drink more water, eat a little healthier. Definitely notices a decreased appetite. Exercise-outside walking more with her dog. Insomnia-trazodone, takes rarely at bedtime prn. Past medical history, appointments, medications, allergies reviewed. Previous Medical History PAST MEDICAL HISTORY Diagnosis Date Anxiety state Previous Surgical History PAST SURGICAL HISTORY Procedure Laterality Date PAST SURGICAL HISTORY OF 04/06/2013 [place] teeth REDUCTION OF LARGE BREAST 2019 Family History FAMILY HISTORY Problem Relation Age of Onset Arthritis Mother Heart Mother 53 Asthma Sister other (endometriosis) Sister Osteoporosis Maternal Grandmother Thyroid Maternal Grandmother thyroidectomy Thyroid Maternal Grandfather Heart Maternal Grandfather 50 Diabetes Paternal Grandmother Heart Maternal Aunt 40 Stroke Maternal Aunt 60 Patient Allergies ALLERGIES No Known Allergies Current Medications Current Outpatient Medications on File Prior to Visit Medication Sig medroxyPROGESTERone (DEPO-PROVERA) 150 mg/mL Inject 1 mL intramuscularly every 12 weeks. Syringe with Needle, Disp, (SYRINGE 3CC/22GX1) 3 mL 22 gauge x 1 use one needle and syringe for IM injection of depoprovera q 12 weeks metFORMIN (GLUCOPHAGE) 500 mg tablet Take 1 tablet by mouth daily with dinner. rizatriptan (MAXALT) 10 mg tablet Take 1 tablet at onset on migraine. If no relief in 4 hours, you are able to take one additional dose. Do not exceed 2 within 24 hours. escitalopram oxalate (LEXAPRO) 10 mg tablet Take 1 tablet by mouth daily at bedtime. magnesium gluconate (MAGONATE) 27 mg (500 mg) tab Take 1 tablet by mouth once daily. riboflavin, vitamin B2, (VITAMIN B-2) 100 mg tab Take 4 tablets by mouth once daily. Cholecalciferol, Vitamin D3, 125 mcg (5,000 unit) cap Take 1 capsule by mouth once daily. Biotin 10,000 mcg cap Take by mouth. traZODone (DESYREL) 50 mg tablet Take 1 tablet by mouth daily at bedtime. For insomnia No current facility-administered medications on file prior to visit. Social History Social History Tobacco Use Smoking status: Never Smokeless tobacco: Never Vaping Use Vaping status: Never Used Substance Use Topics Alcohol use: Yes Comment: rare wine Drug use: No Review of Symptoms REVIEW OF SYSTEMS See HPI, otherwise negative EXAM: BP 118/76 (BP Site: Left Arm, BP Position: Sitting, BP Cuff Size: Regular Adult) Pulse 78 Resp 16 Wt 80 kg (176 lb 5.9 oz) LMP 03/15/2023 (Approximate) SpO2 98% BMI 30.48 kg/m General Appearance: Well appearing, alert, in no acute distress, well-hydrated, well nourished. and Obese. Lungs: Lungs clear to auscultation. No wheezing, rhonchi, rales.. Heart: RRR without murmur, gallop, or rubs. No ectopy. Psychiatric: pleasant, cooperative. Health Maintenance List Depression Screening Never done Hepatitis C Screening Never done HIV Screening Never done Influenza Vaccine(1) due on 07/07/2024 Covid-19 Vaccine( season) Never done Cervical Cancer Screening due on 09/06/2028 DTaP,Tdap,Td Vaccine(7 - Td or Tdap) due on 12/27/2031 Hepatitis B Vaccine Completed HPV Vaccine Completed Data reviewed Previous records, office notes, PDMP report PDMP website checked and validated. All prescriptions have been APPROPRIATELY filled. No suspicious activity was identified. 08/21/2024 by Chalino Bob CNP. ASSESSMENT/PLAN: 1. Class 1 obesity with body mass index (BMI) of 30.0 to 30.9 in adult, unspecified obesity type, unspecified whether serious comorbidity present - ICD9: 278.00, V85.30, ICD10: E66.811, Z68.30 (primary diagnosis) Continue Adipex, working on diet and exercise F/u in the office in 3 months 2. FABIENNE (generalized anxiety disorder) - ICD9: 300.02, ICD10: F41.1 Continue Lexapro 10mg qhs 3. Situational insomnia - ICD9: 307.41, ICD10: F51.09 Continue Lexapro 10mg qhs Continue prn trazodone 25-50mg Chalino Bob APRN.[employer] FORMING MACHINE ADJUSTER documented in this encounter [facility] 08-05-2024 Telephone encounter Note Refill request received via MyChart. Patient last seen 09/06/23 for annual exam. Petty Khan RN [facility] 08-05-2024 Miscellaneous Notes Refill request received via MyChart. Patient last seen 09/06/23 for annual exam. Petty Khan RN documented in this encounter [facility] 05-27-2024 Telephone encounter Note Pt given 3 months of Rx. Suggested to f/u in 3 months. Courtney Potts MA [facility] 05-27-2024 Miscellaneous Notes Pt given 3 months of Rx. Suggested to f/u in 3 months. Courtney Potts MA Notified pt to make an appt via [facility] with PCP Team for weight follow up, nothing scheduled at this time. Pt made aware to make appt via mychart or call office and speak with a Tumbler Drier Operator. Courtney Potts MA documented in this encounter [facility] 05-27-2024 Telephone encounter Note Notified pt to make an appt via mychart with PCP Team for weight follow up, nothing scheduled at this time. Pt made aware to make appt via mychart or call office and speak with a Tumbler Drier Operator. Courtney Potts MA [facility] 05-22-2024 History of Present illness Narrative CC: Natalee Collado is a 29 year old female who presents to the office for follow up HPI: Anxiety symptoms, taking lexapro 10 mg a day, tolerating well. Mood has been well controlled and stable. No SI or HI. Obesity, trying to cut back on sugars and starches and unhealthy foods. Doesn't typically eat much dessert or soda or processed foods. Hasn't been on medication in the past for this but potentially interested in starting on medication if weight doesn't improve. Goal around 150-155 lbs PAST MEDICAL HISTORY Diagnosis Date Anxiety state PAST SURGICAL HISTORY Procedure Laterality Date PAST SURGICAL HISTORY OF 04/06/2013 [place] teeth REDUCTION OF LARGE BREAST 2019 Current Outpatient Medications Medication Sig metFORMIN (GLUCOPHAGE) 500 mg tablet Take 1 tablet by mouth daily with dinner. Phentermine HCl (ADIPEX-P) 37.5 mg tablet Take 1 tablet by mouth once daily for 30 days. BMI 31.80 rizatriptan (MAXALT) 10 mg tablet Take 1 tablet at onset on migraine. If no relief in 4 hours, you are able to take one additional dose. Do not exceed 2 within 24 hours. escitalopram oxalate (LEXAPRO) 10 mg tablet Take 1 tablet by mouth daily at bedtime. Syringe with Needle, Disp, (SYRINGE 3CC/22GX1) 3 mL 22 gauge x 1 use one needle and syringe for IM injection of depoprovera q 12 weeks medroxyPROGESTERone (DEPO-PROVERA) 150 mg/mL Inject 1 mL intramuscularly every 12 weeks. magnesium gluconate (MAGONATE) 27 mg (500 mg) tab Take 1 tablet by mouth once daily. riboflavin, vitamin B2, (VITAMIN B-2) 100 mg tab Take 4 tablets by mouth once daily. Cholecalciferol, Vitamin D3, 125 mcg (5,000 unit) cap Take 1 capsule by mouth once daily. Biotin 10,000 mcg cap Take by mouth. traZODone (DESYREL) 50 mg tablet Take 1 tablet by mouth daily at bedtime. For insomnia Current Facility-Administered Medications Medication Dose Route Frequency perflutren lipid microspheres 1.3 mL in NaCl (PF) 0.9% 10 mL injection (DEFINITY) INTRAVENOUS DIRECTED PRN sodium chloride 0.9 % (flush) 10 mL (BD POSIFLUSH) 10 mL INTRAVENOUS DIRECTED PRN ALLERGIES No Known Allergies Social History Tobacco Use Smoking status: Never Smokeless tobacco: Never Vaping Use Vaping Use: Never used Substance Use Topics Alcohol use: Yes Comment: rare wine Drug use: No ROS: See HPI PE: BP 120/80 Pulse 88 Temp (Src) 97.3 (Left Tympanic) Ht 5' 3.78 (1.62m) Wt 184 lb (83.5kg) LMP 03/15/2023 BMI 31.80 kg/(m^2). Gen: A&OX3, NAD, non-toxic appearing HEENT: PERRLA, EOMs intact b/l, nares without drainage, pharynx without erythema, exudate, lesions, or drainage. Uvula midline. Neck: No LAD, no thyromegaly, no meningismus. CV: RRR, no murmur Lungs: CTA b/l, no wheezing Skin: No rashes, lesions, or wounds on exposed skin. ASSESSMENT/PLAN: 1. FABIENNE (generalized anxiety disorder) - ICD9: 300.02, ICD10: F41.1 (primary diagnosis) Stable, continue lexapro 2. Migraine without aura, intractable, without status migrainosus - ICD9: 346.11, ICD10: G43.019 rx refilled, stable - RIZATRIPTAN 10 MG TABLET - RIZATRIPTAN 10 MG TABLET 3. Class 1 obesity with body mass index (BMI) of 31.0 to 31.9 in adult, unspecified obesity type, unspecified whether serious comorbidity present - ICD9: 278.00, V85.31, ICD10: E66.9, Z68.31 Stable - Behavioral intervention, - Pharmacological intervention, - PSMF, - Eat well program, and - Add Metformin and Phentermine - METFORMIN 500 MG TABLET - PHENTERMINE 37.5 MG TABLET Juan A Balbuena DO Return if no improvement. Follow up with Juan A Balbuena DO. To ER if develops chest pain, shortness of breath. Discussed risks, benefits, alternatives, and potential side effects of medications. Patient/Guardian expressed understanding and agreed with the plan. See patient instructions. Juan A Balbuena DO [address] [place] [address] documented in this encounter [facility] 05-22-2024 Instructions Juan A Balbuena DO - 05/22/2024 6:06 PM EDT Intermittent fasting- fast 15-16 hours a day, eat 8-9 hour window Authors: Jesus Maurer. Eat at least 100 grams of protein a day if you can documented in this encounter [facility] 03-29-2024 History of Present illness Narrative Radiology Service Progress Note PATIENT NAME: Natalee Collado DATE OF SERVICE: March 29, 2024 TIME: 2:34 PM PATIENT IDENTITY VERIFICATION COMPLETED USING TWO (2) IDENTIFIERS: Name and Date of confirmed by patient verbally. FALL SCREENING: Has the patient had 2 falls in the last year or 1 fall with injury or currently using an Ambulatory Assistive Device (Walker, Cane, Wheelchair, Crutches, etc.)? No PATIENT GENDER DATA: Female. status: : No status: NO. PATIENT RELEVANT IMPLANT DATA REVIEWED: Not Applicable PATIENT PRESENTS WITH AN IMPLANTABLE OR ATTACHED CARTON PACKAGING MACHINE OPERATOR: No RADIOLOGY DEPARTMENT: Ultrasound PERIPHERAL IV DATA: Not applicable SIGNED BY: eJssie Roldan RDMS March 29, 2024 2:34 PM documented in this encounter [facility] 03-19-2024 History of Present illness Narrative Radiology Service Progress Note PATIENT NAME: Natalee Collado DATE OF SERVICE: March 19, 2024 TIME: 5:22 PM PATIENT IDENTITY VERIFICATION COMPLETED USING TWO (2) IDENTIFIERS: Name and Date of confirmed by patient verbally. FALL SCREENING: Has the patient had 2 falls in the last year or 1 fall with injury or currently using an Ambulatory Assistive Device (Walker, Cane, Wheelchair, Crutches, etc.)? No PATIENT GENDER DATA: Female. status: : No status: NO. PATIENT RELEVANT IMPLANT DATA REVIEWED: Not Applicable PATIENT PRESENTS WITH AN IMPLANTABLE OR ATTACHED CARTON PACKAGING MACHINE OPERATOR: No RADIOLOGY DEPARTMENT: General X-ray: Exam(s) Completed: Abdomen X-Ray: Abdomen PERIPHERAL IV DATA: Not applicable SIGNED BY: RT Otis(R) March 19, 2024 5:22 PM documented in this encounter [facility] 03-18-2024 Telephone encounter Note Called pt back as Chalino is out today. She will try to come in today and get the abd xray done. She was unable to get the ultrasound appts moved up so they are still on the [facility] 03-18-2024 Miscellaneous Notes Called pt back as Chalino is out today. She will try to come in today and get the abd xray done. She was unable to get the ultrasound appts moved up so they are still on the 24th Pt saw Chalino Bob on 03/06/24 for some of the same symptoms. Pt was supposed to have some testing done. She was to have an x ray to check to see if she has a lot of stool or a blockage. Pt is also to have an abd and pelvic ultrasound. Pt wanted to do all on the same day which isn't until March 29. Pt encouraged to have her xray done as soon as possible and see if she can move the ultrasounds up to be done sooner. Transferred to scheduling. Protocol recommends Home care. Care plan reviewed with patient. Patient voices understanding. Advised patient that if symptoms get worse to either call to be seen or go to the ER. Reason for Disposition MILD-MODERATE diarrhea (e.g., 1-6 times / day more than normal) Answer Assessment - Initial Assessment Questions 1. DIARRHEA SEVERITY: mild - NO DIARRHEA (SCALE 0) - MILD (SCALE 1-3): Few loose or mushy BMs; increase of 1-3 stools over normal daily number of stools; mild increase in ostomy output. - MODERATE (SCALE 4-7): Increase of 4-6 stools daily over normal; moderate increase in ostomy output. - SEVERE (SCALE 8-10; OR WORST POSSIBLE): Increase of 7 or more stools daily over normal; moderate increase in ostomy output; incontinence. 2. ONSET: Monday 3. BM CONSISTENCY: Pt states loose but not watery-no form to it. Green in color. 4. VOMITING: Slight nausea, no vomiting 5. ABDOMEN PAIN: denies- occasionally some abd pain around umbilical area. Maybe couple times a day but usually occurs when she has to have a BM 6. ABDOMEN PAIN SEVERITY: When she has it, it is a 5-6 - MILD (1-3): doesn't interfere with normal activities, abdomen soft and not tender to touch - MODERATE (4-7): interferes with normal activities or awakens from sleep, abdomen tender to touch - SEVERE (8-10): excruciating pain, doubled over, unable to do any normal activities 7. ORAL INTAKE: Eating and drinking okay. Just not much of an appetite. Uses a 30 oz [employer] drink container and drank a full one so far today 8. HYDRATION: Denies any signs 9. EXPOSURE: Denies 10. ANTIBIOTIC USE: Denies 11. OTHER SYMPTOMS: Denies 12. : on Depo shot Protocols used: [id number] documented in this encounter [facility] 03-18-2024 Telephone encounter Note Pt saw Chalino Bob on 03/06/24 for some of the same symptoms. Pt was supposed to have some testing done. She was to have an x ray to check to see if she has a lot of stool or a blockage. Pt is also to have an abd and pelvic ultrasound. Pt wanted to do all on the same day which isn't until March 29. Pt encouraged to have her xray done as soon as possible and see if she can move the ultrasounds up to be done sooner. Transferred to scheduling. Protocol recommends Home care. Care plan reviewed with patient. Patient voices understanding. Advised patient that if symptoms get worse to either call to be seen or go to the ER. Reason for Disposition MILD-MODERATE diarrhea (e.g., 1-6 times / day more than normal) Answer Assessment - Initial Assessment Questions 1. DIARRHEA SEVERITY: mild - NO DIARRHEA (SCALE 0) - MILD (SCALE 1-3): Few loose or mushy BMs; increase of 1-3 stools over normal daily number of stools; mild increase in ostomy output. - MODERATE (SCALE 4-7): Increase of 4-6 stools daily over normal; moderate increase in ostomy output. - SEVERE (SCALE 8-10; OR WORST POSSIBLE): Increase of 7 or more stools daily over normal; moderate increase in ostomy output; incontinence. 2. ONSET: Monday 3. BM CONSISTENCY: Pt states loose but not watery-no form to it. Green in color. 4. VOMITING: Slight nausea, no vomiting 5. ABDOMEN PAIN: denies- occasionally some abd pain around umbilical area. Maybe couple times a day but usually occurs when she has to have a BM 6. ABDOMEN PAIN SEVERITY: When she has it, it is a 5-6 - MILD (1-3): doesn't interfere with normal activities, abdomen soft and not tender to touch - MODERATE (4-7): interferes with normal activities or awakens from sleep, abdomen tender to touch - SEVERE (8-10): excruciating pain, doubled over, unable to do any normal activities 7. ORAL INTAKE: Eating and drinking okay. Just not much of an appetite. Uses a 30 oz [employer] drink container and drank a full one so far today 8. HYDRATION: Denies any signs 9. EXPOSURE: Denies 10. ANTIBIOTIC USE: Denies 11. OTHER SYMPTOMS: Denies 12. : on Depo shot Protocols used: [id number] [facility] 03-06-2024 Telephone encounter Note Please call patient and assist her to schedule her ultrasounds. Chalino Bob APRN.CNP [facility] 03-06-2024 Miscellaneous Notes Please call patient and assist her to schedule her ultrasounds. Chalino Bob APRN.CNP documented in this encounter [facility] 03-06-2024 History of Present illness Narrative Chief Complaint Patient presents with: Abdominal Pain: Sharp stabbing lower abdomen, x 2 weeks, sometimes will feel relief with a bowel movement or passing gas. Soft stools for the past week. Stool is more solid. HPI Natalee Collado is a 28 year old female who presents here today for Above Complaints. Intermittent pain to left lower abdomen/suprapubic area. Cannot pinpoint anything that brings it on. Improves with bowel movement or passes gas. Denies n/v, but is uncomfortable. Soft stools last week that ended 5 days ago. Is now back to her normal. Normally has BM every 1-2 days. Takes Depo-Provera shots every 12 weeks. Likely no . Denies any urinary sx. Has been increasing her water intake. Does not menstruate, but does get sx like cramping at that time. No blood in her stool. One day did have a little bit of mucous. Past medical history, appointments, medications, allergies reviewed. Previous Medical History PAST MEDICAL HISTORY Diagnosis Date Anxiety state Previous Surgical History PAST SURGICAL HISTORY Procedure Laterality Date PAST SURGICAL HISTORY OF 04/06/2013 [place] teeth REDUCTION OF LARGE BREAST 2019 Family History FAMILY HISTORY Problem Relation Age of Onset Arthritis Mother Heart Mother 53 Asthma Sister other (endometriosis) Sister Osteoporosis Maternal Grandmother Thyroid Maternal Grandmother thyroidectomy Thyroid Maternal Grandfather Heart Maternal Grandfather 50 Diabetes Paternal Grandmother Heart Maternal Aunt 40 Stroke Maternal Aunt 60 Patient Allergies ALLERGIES No Known Allergies Current Medications Current Outpatient Medications on File Prior to Visit Medication Sig Syringe with Needle, Disp, (SYRINGE 3CC/22GX1) 3 mL 22 gauge x 1 use one needle and syringe for IM injection of depoprovera q 12 weeks medroxyPROGESTERone (DEPO-PROVERA) 150 mg/mL Inject 1 mL intramuscularly every 12 weeks. magnesium gluconate (MAGONATE) 27 mg (500 mg) tab Take 1 tablet by mouth once daily. rizatriptan (MAXALT) 10 mg tablet Take 1 tablet at onset on migraine. If no relief in 4 hours, you are able to take one additional dose. Do not exceed 2 within 24 hours. riboflavin, vitamin B2, (VITAMIN B-2) 100 mg tab Take 4 tablets by mouth once daily. escitalopram oxalate (LEXAPRO) 10 mg tablet Take 1 tablet by mouth daily at bedtime. Cholecalciferol, Vitamin D3, 125 mcg (5,000 unit) cap Take 1 capsule by mouth once daily. Biotin 10,000 mcg cap Take by mouth. traZODone (DESYREL) 50 mg tablet Take 1 tablet by mouth daily at bedtime. For insomnia Current Facility-Administered Medications on File Prior to Visit Medication perflutren lipid microspheres 1.3 mL in NaCl (PF) 0.9% 10 mL injection (DEFINITY) sodium chloride 0.9 % (flush) 10 mL (BD POSIFLUSH) Social History Social History Tobacco Use Smoking status: Never Smokeless tobacco: Never Vaping Use Vaping Use: Never used Substance Use Topics Alcohol use: Yes Comment: rare wine Drug use: No Review of Symptoms REVIEW OF SYSTEMS See HPI, otherwise negative EXAM: BP 110/82 (BP Site: Left Arm, BP Position: Sitting, BP Cuff Size: Regular Adult) Pulse 87 Temp 37.1 C (98.7 F) Wt 84.3 kg (185 lb 12.8 oz) LMP 03/15/2023 (Approximate) SpO2 97% BMI 32.65 kg/m General Appearance: Well appearing, alert, in no acute distress, well-hydrated, well nourished.. Lungs: Lungs clear to auscultation. No wheezing, rhonchi, rales.. Heart: RRR without murmur, gallop, or rubs. No ectopy. Abdomen: Abdomen soft, tender to palpation of LLQ, left suprapubic area. Bowel sounds normal. No masses, organomegaly Lymph Nodes: No cervical lymphadenopathy, No supraclavicular lymphadenopathy, and No inguinal lymphadenopathy.. Psychiatric: pleasant, cooperative. Health Maintenance List Hepatitis C Screening Never done HIV Screening Never done Covid-19 Vaccine( season) due on 10/04/2024 Influenza Vaccine(Season Ended) due on 07/07/2024 Pap Testing due on 09/06/2028 HPV Testing due on 09/06/2028 DTaP,Tdap,Td Vaccine(7 - Td or Tdap) due on 12/27/2031 Hepatitis B Vaccine Completed HPV Vaccine Completed Behavioral Health Screening Completed Data reviewed Previous records, office notes ASSESSMENT/PLAN: 1. LLQ pain - ICD9: 789.04, ICD10: R10.32 (primary diagnosis) Suspect ovarian vs bowel etiology. Discussed red flag s/s. - XR ABDOMEN 1V SUPINE - US ABDOMEN LTD - US FEMALE PELVIS TRANSABD LTD - US FEMALE PELVIS TRANSVAG - URINALYSIS WITH MICROSCOPIC, REFLEX CULTURE - HCG, QUALITATIVE, URINE 2. Suprapubic pain - ICD9: 789.09, ICD10: R10.2 Suspect ovarian vs bowel etiology. Discussed red flag s/s. - XR ABDOMEN 1V SUPINE - US ABDOMEN LTD - US FEMALE PELVIS TRANSABD LTD - US FEMALE PELVIS TRANSVAG - URINALYSIS WITH MICROSCOPIC, REFLEX CULTURE - HCG, QUALITATIVE, URINE 3. Change in stool habits - ICD9: 787.99, ICD10: R19.4 Suspect ovarian vs bowel etiology. Discussed red flag s/s. - XR ABDOMEN 1V SUPINE - US ABDOMEN LTD - US FEMALE PELVIS TRANSABD LTD - US FEMALE PELVIS TRANSVAG - URINALYSIS WITH MICROSCOPIC, REFLEX CULTURE - HCG, QUALITATIVE, URINE 4. Situational insomnia - ICD9: 307.41, ICD10: F51.09 Continue current medication - ESCITALOPRAM 10 MG TABLET 5. FABIENNE (generalized anxiety disorder) - ICD9: 300.02, ICD10: F41.1 Continue current medication - ESCITALOPRAM 10 MG TABLET Chalino Bob APRN.[employer] documented in this encounter [facility] 02-19-2024 Miscellaneous Notes Patient has been identified by name and date of : Yes, Provider Dr. Balbuena Date 02/19/24 Time 9:50 Patient phones for refill(s): Requested Prescriptions Pending Prescriptions Disp Refills magnesium gluconate (MAGONATE) 27 mg (500 mg) tab 90 tablet 1 Sig: Take 1 tablet by mouth once daily. rizatriptan (MAXALT) 10 mg tablet 12 tablet 1 Sig: Take 1 tablet at onset on migraine. If no relief in 4 hours, you are able to take one additional dose. Do not exceed 2 within 24 hours. Date of last office visit in primary care: 10/04/2023 Date of next office visit in primary care: 05/22/2024 Please advise. Thank you. Brenda Breaux LPN. documented in this encounter [facility] 02-19-2024 Miscellaneous Notes Last annual 09/06/2023 documented in this encounter [facility] 10-04-2023 History of Present illness Narrative Chief Complaint Patient presents with: headaches/migrains: Waking up past couple months and blows nose and getting green mucus HPI Natalee Collado is a 28 year old female who presents here today for Above Complaints. Headaches --- About 1x per month. Does not correlate with menstrual cycle. Notices more with weather changes. Had mild episode last night with cold weather, had relief with advil. Starting to take advil as needed -- does give relief for headaches but normally not with more severe migraines. Most recent migraine episode on Sep 13-. Occurred x 2-3 days. Was going to come to express care if it lasted one more day but decided to take OTC Excedrin and it resolved. Does not like to take Excedrin because it worsens GI upset for her. N/v with migraines normally. Migraines lasts a few days when the come on. Normally behind R eye or behind R ear. To recover with migraine she will go in bedroom, puts on ice pack to back of neck and goes to sleep. Currently taking Mag, Vitamin B2, and vitamin D supplements for migraine prevention. Does feel like this helps because prior to taking these she was getting headaches more frequently. Pt denies any recent cough, congestion, fever/chills, or other URI like symptoms. Pt reports mother takes maxalt for migraines and dose well on this. No other concerns or complaints. Past medical history, appointments, medications, allergies reviewed. Previous Medical History PAST MEDICAL HISTORY Diagnosis Date Anxiety state Previous Surgical History PAST SURGICAL HISTORY Procedure Laterality Date PAST SURGICAL HISTORY OF 04/06/2013 [place] teeth REDUCTION OF LARGE BREAST 2019 Family History FAMILY HISTORY Problem Relation Age of Onset Arthritis Mother Heart Mother 53 Asthma Sister other (endometriosis) Sister Osteoporosis Maternal Grandmother Thyroid Maternal Grandmother thyroidectomy Thyroid Maternal Grandfather Heart Maternal Grandfather 50 Diabetes Paternal Grandmother Heart Maternal Aunt 40 Stroke Maternal Aunt 60 Patient Allergies ALLERGIES No Known Allergies Current Medications Current Outpatient Medications on File Prior to Visit Medication Sig riboflavin, vitamin B2, (VITAMIN B-2) 100 mg tab Take 4 tablets by mouth once daily. medroxyPROGESTERone (DEPO-PROVERA) 150 mg/mL Inject 1 mL intramuscularly every 12 weeks. escitalopram oxalate (LEXAPRO) 10 mg tablet Take 1 tablet by mouth daily at bedtime. magnesium gluconate (MAGONATE) 27 mg (500 mg) tab Take 1 tablet by mouth once daily. Cholecalciferol, Vitamin D3, 125 mcg (5,000 unit) cap Take 1 capsule by mouth once daily. Syringe with Needle, Disp, (SYRINGE 3CC/22GX1) 3 mL 22 gauge x 1 use one needle and syringe for IM injection of depoprovera q 12 weeks Biotin 10,000 mcg cap Take by mouth. traZODone (DESYREL) 50 mg tablet Take 1 tablet by mouth daily at bedtime. For insomnia Current Facility-Administered Medications on File Prior to Visit Medication perflutren lipid microspheres 1.3 mL in NaCl (PF) 0.9% 10 mL injection (DEFINITY) sodium chloride 0.9 % (flush) 10 mL (BD POSIFLUSH) Social History Social History Tobacco Use Smoking status: Never Smokeless tobacco: Never Vaping Use Vaping Use: Never used Substance Use Topics Alcohol use: Yes Comment: rare wine Drug use: No REVIEW OF SYSTEMS: as above Reviewed relevant PMHx, PSHx, Social Hx, current medications and allergies. Review of Symptoms REVIEW OF SYSTEMS See HPI. EXAM: BP 122/72 (BP Site: Left Arm, BP Position: Sitting, BP Cuff Size: Large Adult) Pulse 82 Temp 37.1 C (98.7 F) Wt 83.4 kg (183 lb 12.8 oz) LMP 03/15/2023 (Approximate) SpO2 99% BMI 32.30 kg/m General Appearance: Well appearing, alert, in no acute distress, well-hydrated, well nourished.. Skin: Skin color, texture, turgor normal, no suspicious rashes or lesions. Head: Normocephalic, no masses, lesions, tenderness or abnormalities. Lungs: Lungs clear to auscultation. No wheezing, rhonchi, rales.. Heart: RRR without murmur, gallop, or rubs. No ectopy. Neurologic: Gait normal. Reflexes normal and symmetric. Sensation grossly intact., Negative findings: speech normal, mental status intact. Health Maintenance List Hepatitis C Screening Never done HIV Screening Never done Influenza Vaccine(1) due on 05/05/2024 Covid-19 Vaccine(1) due on 10/04/2024 Pap Testing due on 09/06/2028 HPV Testing due on 09/06/2028 DTaP,Tdap,Td Vaccine(7 - Td or Tdap) due on 12/27/2031 Hepatitis B Vaccine Completed HPV Vaccine Completed Depression Assessment Completed ASSESSMENT/PLAN: 1. Migraine without aura, intractable, without status migrainosus - ICD9: 346.11, ICD10: G43.019 Continue with Mag, vitamin D, and riboflavin supplement. Trial Maxalt as needed at onset of severe migraines -- pt reports mother takes this and does well. RTO as needed if no resolution with this medication. - MAGNESIUM GLUCONATE 27 MG MAGNESIUM (500 MG) TABLET - RIZATRIPTAN 10 MG TABLET RTO as needed. Prescription instructions reviewed with patient as applicable. Potential red flag symptoms discussed with the patient. Reviewed appropriate action plan to take if red flag symptoms occur. Patient agreeable to treatment plan. Susan Abernathy APRN.[facility] [address] [place] [address] documented in this encounter [facility] 09-25-2023 Miscellaneous Notes RAMOS-04/12/23 Labs-06/24/23 NOV-10/04/23 Yamile Dillon LPN documented in this encounter [facility] 09-06-2023 History of Present illness Narrative Samina is a 28 year old who presents for an annual gynecologic exam without complaints. Menses: n/a w/ depo Contraception: Depo Provera HPV vaccine: Yes Last Pap: 05/25/2021 normal HPV: negative History of abnormal pap: No Last mammogram: never Sexually active: Yes OB History T0 L0 SAB0 IAB0 Ectopic0 Multiple0 Live Births0 Casino Manager History LMP: 03/15/2023 (Approximate), Injection Age at Menarche: Age at First : Age at Menopause: Casino Manager History Comments: Sexual Activity: Yes; Male Contraception: Condom, Injection PAST MEDICAL HISTORY Diagnosis Date Anxiety state PAST SURGICAL HISTORY Procedure Laterality Date PAST SURGICAL HISTORY OF 04/06/2013 [place] teeth REDUCTION OF LARGE BREAST 2019 FAMILY HISTORY Problem Relation Age of Onset Arthritis Mother Heart Mother 53 Asthma Sister other (endometriosis) Sister Osteoporosis Maternal Grandmother Thyroid Maternal Grandmother thyroidectomy Thyroid Maternal Grandfather Heart Maternal Grandfather 50 Diabetes Paternal Grandmother Heart Maternal Aunt 40 Stroke Maternal Aunt 60 SOCIAL HISTORY Social History Tobacco Use Smoking status: Never Smokeless tobacco: Never Vaping Use Vaping Use: Never used Substance Use Topics Alcohol use: Yes Comment: rare wine Drug use: No REVIEW OF SYSTEMS Abdomen: No abdominal pain, nausea, vomiting, diarrhea, or constipation. No bloating, early satiety, indigestion, or increased flatulence. Bladder: No dysuria, gross hematuria, urinary frequency, urinary urgency, or incontinence. Breast: No breast lumps, nipple d/c, overlying skin changes, redness or skin retraction. Allergies and current medication updated:Yes EXAM: BP 110/72 Ht 5' 3.25 (1.61m) Wt 179 lb (81.2kg) LMP 03/15/2023 BMI 31.44 kg/(m^2). GENERAL: pleasant, female in no apparent distress HEENT: Normocephalic, atraumatic, mucus membranes moist, and no lesions NECK: Supple, full range of motion, no adenopathy, and thyroid normal DERMATOLOGY: Normal, without lesions, non-icteric, and non-hirsute BREAST: soft, non-tender, symmetric, no dominant mass, normal nipple-areolar complex, no lymphadenopathy, and no nipple discharge CHEST: Normal inspiratory effort ABDOMEN: soft, non-tender, and no masses PELVIC: external genitalia normal, normal Bartholin's glands, urethra, [place]'s glands, no vulvar lesions, no cervical lesions, good vaginal support, physiologic discharge present, normal appearing perineal body and perianal region BIMANUAL: uterus normal size, shape and consistency, no adnexal masses, and non-tender RECTOVAGINAL: rectovaginal exam negative for any masses or nodularity. NEURO: alert and oriented x3,exam grossly non-focal EXTREMITIES: normal ASSESSMENT/PLAN: 1) Health maintenance: Pap done with HPV. HPV vaccine: completed series declines flu vaccine d/w her vaginal dryness, recommend OTC measures 2) Contraception: Depo Provera. Contraceptive options reviewed and information provided. 3) STD screening: Declined STD check. 4) Follow up one year or sooner as needed Jayde Bangura MD documented in this encounter [facility] 06-22-2023 Miscellaneous Notes Please see pt's mychart refill request. Pt was last seen in the office in . Please advise. Alexia Ramos LPN documented in this encounter [facility] 04-12-2023 History of Present illness Narrative CC: Natalee Collado is a 28 year old female who presents to the office for physical HPI: Mood, stable, taking lexapro as prescribed, did have SE with wellbutrin XL or sweating and headache. Doesn't feel there is a mood concern to need additional medication Fmhx of premature CAD, does have occasional palpitations, no chest pressure or pain, no dyspnea or dizziness/LH or edema PAST MEDICAL HISTORY Diagnosis Date NEGATIVE MEDICAL HISTORY PAST SURGICAL HISTORY Procedure Laterality Date PAST SURGICAL HISTORY OF 04/06/2013 [place] teeth REDUCTION OF LARGE BREAST 2019 Social History: Social History Tobacco Use Smoking status: Never Smokeless tobacco: Never Vaping Use Vaping Use: Never used Substance Use Topics Alcohol use: Yes Comment: rare wine Drug use: No FAMILY HISTORY Problem Relation Age of Onset Arthritis Mother Heart Mother 53 Asthma Sister other (endometriosis) Sister Osteoporosis Maternal Grandmother Thyroid Maternal Grandmother thyroidectomy Thyroid Maternal Grandfather Heart Maternal Grandfather 50 Diabetes Paternal Grandmother Heart Maternal Aunt 40 Stroke Maternal Aunt 60 Current Outpatient prescriptions: medroxyPROGESTERone (DEPO-PROVERA) 150 mg/mL^Inject 1 mL intramuscularly every 12 weeks.^Disp: 1 Each^Rfl: 3 magnesium gluconate (MAGONATE) 27 mg (500 mg) tab^Take 1 tablet by mouth once daily.^Disp: 90 tablet^Rfl: 1 riboflavin, vitamin B2, (VITAMIN B-2) 100 mg tab^Take 4 tablets by mouth once daily.^Disp: 400 tablet^Rfl: 3 Cholecalciferol, Vitamin D3, 125 mcg (5,000 unit) cap^Take 1 capsule by mouth once daily.^Disp: 90 capsule^Rfl: 3 Syringe with Needle, Disp, (SYRINGE 3CC/22GX1) 3 mL 22 gauge x 1^use one needle and syringe for IM injection of depoprovera q 12 weeks^Disp: 1 Each^Rfl: 3 Biotin 10,000 mcg cap^Take by mouth.^Disp: ^Rfl: vitamin B complex (B COMPLEX ORAL)^Take by mouth.^Disp: ^Rfl: escitalopram oxalate (LEXAPRO) 10 mg tablet^Take 1 tablet by mouth daily at bedtime.^Disp: 90 tablet^Rfl: 3 traZODone (DESYREL) 50 mg tablet^Take 1 tablet by mouth daily at bedtime. For insomnia^Disp: 90 tablet^Rfl: 1 Allergies: ALLERGIES No Known Allergies ROS: See HPI PE: 04/12/23 1656 BP: 100/60 Pulse: 76 Resp: 16 Temp: 36.7 C (98 F) TempSrc: Left Tympanic Weight: 80.3 kg (177 lb) Height: 161 cm (5' 3.39) Gen: A&O, NAD, non-toxic appearing, Pleasant, cooperative HEENT: NT/AC, PERRLA, EOMs intact b/l, nares clear and patent b/l, pharynx without erythema, exudate or lesions. Uvula midline.MMM, EACs without erythema or debris. TMs pearly gutierrez with intact landmarks b/l. Neck: supple, No cervical LAD, no thyromegaly, no carotid bruits CV: RRR, normal S1 and S2, 1/6 LLSB soft blowing murmurs, no gallops, no rubs, Pulses 2+ and symmetric in UE and LE b/l Lungs: normal respiratory effort, CTA b/l, no wheezing or rhonchi or rales Abd: soft, NT, ND, +BS, no hepatosplenomegaly MS: FROM all 4 extremities Neuro: CN II-XII intact b/l, strength 5/5 b/l UE and LE, DTRs 2/4 UE and LE, sensation intact. Skin: warm, dry, intact, No rashes or lesions on exposed skin. No edema, normal pulses ASSESSMENT/PLAN: 1. Vitamin D deficiency - ICD9: 268.9, ICD10: E55.9 (primary diagnosis) Continue supplement, 2. FABIENNE (generalized anxiety disorder) - ICD9: 300.02, ICD10: F41.1 Mood is stable with lexapro, if needed in future, consider short acting wellbutrin to add onto lexapro - ESCITALOPRAM 10 MG TABLET 3. Situational insomnia - ICD9: 307.41, ICD10: F51.09 Mood is stable with lexapro, if needed in future, consider short acting wellbutrin to add onto lexapro - ESCITALOPRAM 10 MG TABLET 4. Well adult exam - ICD9: V70.0, ICD10: Z00.00 - Counseled on healthy diet and regular exercise - Calcium intake with supplements or by diet of 1000 mg/day for under 50, 3542-8359 mg/day for 50+ - TSH BLD - HGB A1C - COMP METABOLIC PANEL - CBC + DIFF - LIPID PANEL BASIC - C-REACTIVE PROTEIN (CRP) - VITAMIN D 25 HYDROXY 5. Family history of premature coronary heart disease - ICD9: V17.3, ICD10: Z82.49 - ECG COMPLETE - ECHO - PERFLUTREN LIPID MICROSPHERES 1.1 MG/ML INJECTION IN NS 10 ML - SODIUM CHLORIDE 0.9 % (FLUSH) INJECTION SYRINGE 6. Cardiac murmur, previously undiagnosed - ICD9: 785.2, ICD10: R01.1 - ECG COMPLETE - ECHO - PERFLUTREN LIPID MICROSPHERES 1.1 MG/ML INJECTION IN NS 10 ML - SODIUM CHLORIDE 0.9 % (FLUSH) INJECTION SYRINGE - ECG COMPLETE Juan A Balbuena DO To ER if develops chest pain, shortness of breath, or severe worsening of symptoms. Discussed risks, benefits, alternatives, and potential side effects of medications. Patient expressed understanding and agreed with the plan. Juan A Balbuena DO [address] [place] [address] documented in this encounter [facility] 03-16-2023 History of Present illness Narrative Patient identified by name and date of . Natalee Collado is here for her HPV 9 vaccination, injection # three of the series. Patient ?No Gardasil injection was given without incident. See immunizations for details of immunizations administered today. VIS sheet provided: Yes Patient advised to follow up in Series completed Provider Dr. Bangura was present in office at time of injection. Nancy Gonzáles LPN documented in this encounter [facility] 03-16-2023 Instructions Nancy Gonzáles LPN - 03/16/2023 3:50 PM EDT Gardasil Gardasil is a vaccine to protect against Human Papillomavirus (HPV) types 6, 11, 16, 18, 31,33,45, 52, 58. These viruses cause cancer and precancerous lesions on the cervix (opening between vagina and uterus), in the vagina and on the vulva (skin around the outside of the vagina) as well as genital warts. The vaccine cannot cause these diseases and cannot treat them if already present. Gardasil works best if given before contact with HPV. Most people are exposed to HPV soon after starting sexual activity. The vaccine is recommended between the ages of 9 and 45. Gardasil does not protect against all strains of HPV. Women who receive the vaccine still need to have regular pelvic exams and cervical cancer screening with the pap smear. You should ask your doctor if Gardasil is right for you if you have a weakened immune system, a bleeding disorder, plan to become soon or have a current illness causing fever. Gardasil is not recommended for women. You should be sure your doctor is aware of any allergies you have and all medications and herbal supplements you take. Gardasil is given to those ages 9-14 in 2 doses at 0 and 8 months. In ages 15-45, three injections are given at 0,2,6 months. Common side effects include pain, redness, itching and swelling at the injection site, nausea, fever, dizziness and fainting. Rare but potentially serious reactions have been reported. These include allergic reaction, swollen glands, joint and muscle pain, weakness and Guillain-Bowie syndrome. documented in this encounter [facility] 02-16-2023 Miscellaneous Notes Patient phones requesting refills as follows: Requested Prescriptions Pending Prescriptions Disp Refills buPROPion XL (WELLBUTRIN XL) 150 mg 24 hr tablet 30 tablet 0 Sig: Take 1 tablet by mouth once daily. RAMOS-12/14/22 Labs-03/31/22 NOV-04/12/22 med filled 01/05/23 Please review and advise. Yamile Dillon LPN documented in this encounter [facility] 01-14-2023 Miscellaneous Notes Reason for Call: Has been having 3-4 loose stools per day for three days. Two days ago developed an intermittent pain in left lower abdomen that comes and goes and lasts about 45 minutes. Afebrile, no vomiting. Outcome: Care advice given. Advised to be seen at [facility] within 24 hours. She agreed and will go to [facility]. Reason for Disposition [1] MODERATE pain (e.g., interferes with normal activities) AND [2] pain comes and goes (cramps) AND [3] present > 24 hours (Exception: pain with Vomiting or Diarrhea - see that Guideline) Answer Assessment - Initial Assessment Questions 1. LOCATION: left abdomen, under umbilicus 2. RADIATION: no 3. ONSET:2 nights ago, but got worse yesterday 4. SUDDEN: gradually 5. PATTERN comes and goes about every 45 minutes, lasting about 5 minutes 6. SEVERITY: 7-8 out of 10, abdomen feels tender to the touch when not having the pain. No pain at this time. 7. RECURRENT SYMPTOM: no 8. CAUSE: unknown 9. RELIEVING/AGGRAVATING FACTORS: nothing relieves the pain, goes away on its own 10. OTHER SYMPTOMS: has had diarrhea off and on for 3 days - about 3-4 stools or more per day 11. : on Dep shot No fever or vomiting Protocols used: Abdominal Pain - [id number] documented in this encounter [facility] 01-05-2023 Miscellaneous Notes Patient phones requesting refills as follows: Patient comment: I have 10 pills left until I am out. Requested Prescriptions Pending Prescriptions Disp Refills buPROPion XL (WELLBUTRIN XL) 150 mg 24 hr tablet 30 tablet 0 Sig: Take 1 tablet by mouth once daily. RAMOS-12/14/22 Labs-04/29/22 NOV-04/12/23 med filled 12/14/22 Please review and advise. Yamile Dillon LPN documented in this encounter [facility] 12-14-2022 History of Present illness Narrative Chief Complaint Patient presents with: Follow Up: Anxiety and adhd and headaches HPI Natalee Collado is a 27 year old female who presents here today for Above Complaints. Anxiety and depression --- Feels like anxiety is worsening. Used to be at night when she couldn't shut off her thoughts/brain, now seems to be more during the day over daily activities. Started taking lexapro in the morning instead of at bedtime which has seemed to help. Very routine driven person. Likes the Lexapro, has worked well. Not sure if she needs increase in dosage or addition of additive medication. Talked with Chalino in October about concern with lexapro causing decreased sexual drive/libido. Chronic insomnia --Takes half of trazodone pill as needed. Feels too groggy when takes full 50 mg tablet, hard time waking up in the morning. No other concerns or complaints. Past medical history, appointments, medications, allergies reviewed. Previous Medical History PAST MEDICAL HISTORY Diagnosis Date NEGATIVE MEDICAL HISTORY Previous Surgical History PAST SURGICAL HISTORY Procedure Laterality Date PAST SURGICAL HISTORY OF 04/06/2013 [place] teeth REDUCTION OF LARGE BREAST 2019 Family History FAMILY HISTORY Problem Relation Age of Onset Arthritis Mother Asthma Sister other (endometriosis) Sister Osteoporosis Maternal Grandmother Thyroid Maternal Grandmother thyroidectomy Thyroid Maternal Grandfather Diabetes Maternal Grandfather Diabetes Paternal Grandmother Patient Allergies ALLERGIES No Known Allergies Current Medications Current Outpatient Medications on File Prior to Visit Medication Sig medroxyPROGESTERone (DEPO-PROVERA) 150 mg/mL Inject 1 mL intramuscularly every 12 weeks. magnesium gluconate (MAGONATE) 27 mg (500 mg) tab Take 1 tablet by mouth once daily. riboflavin, vitamin B2, (VITAMIN B-2) 100 mg tab Take 4 tablets by mouth once daily. Cholecalciferol, Vitamin D3, 125 mcg (5,000 unit) cap Take 1 capsule by mouth once daily. Syringe with Needle, Disp, (SYRINGE 3CC/22GX1) 3 mL 22 gauge x 1 use one needle and syringe for IM injection of depoprovera q 12 weeks Biotin 10,000 mcg cap Take by mouth. traZODone (DESYREL) 50 mg tablet Take 1 tablet by mouth daily at bedtime. For insomnia escitalopram oxalate (LEXAPRO) 10 mg tablet Take 1 tablet by mouth daily at bedtime. vitamin B complex (B COMPLEX ORAL) Take by mouth. (Patient not taking: Reported on 12/14/2022) No current facility-administered medications on file prior to visit. Social History Social History Tobacco Use Smoking status: Never Smokeless tobacco: Never Vaping Use Vaping Use: Never used Substance Use Topics Alcohol use: Yes Comment: rare wine Drug use: No REVIEW OF SYSTEMS: as above Reviewed relevant PMHx, PSHx, Social Hx, current medications and allergies. Review of Symptoms REVIEW OF SYSTEMS See HPI. All other systems are negative. EXAM: BP 112/60 (BP Site: Left Arm, BP Position: Sitting, BP Cuff Size: Large Adult) Pulse 72 Resp 16 Wt 80.4 kg (177 lb 3.2 oz) LMP 2022 (Exact Date) BMI 30.90 kg/m General Appearance: Well appearing, alert, in no acute distress, well-hydrated, well nourished.. Skin: Skin color, texture, turgor normal, no suspicious rashes or lesions. Head: Normocephalic, no masses, lesions, tenderness or abnormalities. Lungs: Lungs clear to auscultation. No wheezing, rhonchi, rales.. Heart: RRR without murmur, gallop, or rubs. No ectopy. Neurologic: Gait normal. Reflexes normal and symmetric. Sensation grossly intact.. Health Maintenance List HEPATITIS C SCREENING Never done HIV SCREENING Never done DEPRESSION ASSESSMENT due on 11/06/2022 COVID-19 VACCINE(1) due on 04/15/2023 PAP TESTING due on 05/19/2024 DTAP,TDAP,TD(7 - Td or Tdap) due on 12/27/2031 HEPATITIS B Completed INFLUENZA Completed ASSESSMENT/PLAN: 1. FABIENNE (generalized anxiety disorder) - ICD9: 300.02, ICD10: F41.1 (primary diagnosis) Continue Lexapro dosage, add wellbutrin 150 mg daily. Wellbutrin should help with decreased libido and worsening anxiety/depresison. RTO in 4-6 weeks if symptoms have not improved. - DEPRESSION SCREENING/ASSESSMENT - BUPROPION XL 150 MG TAB 2. Situational insomnia - ICD9: 307.41, ICD10: F51.09 Continue trazodone as needed --- okay to take 1/2 tablet daily if needed. - DEPRESSION SCREENING/ASSESSMENT - BUPROPION XL 150 MG TAB 3. Fatigue, unspecified type - ICD9: 780.79, ICD10: R53.83 See above. - DEPRESSION SCREENING/ASSESSMENT - BUPROPION XL 150 MG TAB 4. Decreased libido - ICD9: 799.81, ICD10: R68.82 See above. - DEPRESSION SCREENING/ASSESSMENT - BUPROPION XL 150 MG TAB RTO in 3 months as scheduled, sooner if needed. Prescription instructions reviewed with patient as applicable. Potential red flag symptoms discussed with the patient. Reviewed appropriate action plan to take if red flag symptoms occur. Patient agreeable to treatment plan. Susan Abernathy APRN.HERB [address] [place] [address] documented in this encounter [facility] 11-15-2022 Instructions Veronika Gee RN - 11/15/2022 4:00 PM EST Gardasil Gardasil is a vaccine to protect against Human Papillomavirus (HPV) types 6, 11, 16, 18, 31,33,45, 52, 58. These viruses cause cancer and precancerous lesions on the cervix (opening between vagina and uterus), in the vagina and on the vulva (skin around the outside of the vagina) as well as genital warts. The vaccine cannot cause these diseases and cannot treat them if already present. Gardasil works best if given before contact with HPV. Most people are exposed to HPV soon after starting sexual activity. The vaccine is recommended between the ages of 9 and 45. Gardasil does not protect against all strains of HPV. Women who receive the vaccine still need to have regular pelvic exams and cervical cancer screening with the pap smear. You should ask your doctor if Gardasil is right for you if you have a weakened immune system, a bleeding disorder, plan to become soon or have a current illness causing fever. Gardasil is not recommended for women. You should be sure your doctor is aware of any allergies you have and all medications and herbal supplements you take. Gardasil is given to those ages 9-14 in 2 doses at 0 and 8 months. In ages 15-45, three injections are given at 0,2,6 months. Common side effects include pain, redness, itching and swelling at the injection site, nausea, fever, dizziness and fainting. Rare but potentially serious reactions have been reported. These include allergic reaction, swollen glands, joint and muscle pain, weakness and Guillain-Bowie syndrome. documented in this encounter [facility] 11-15-2022 History of Present illness Narrative Patient identified by name and date of . Natalee Collado is here for her HPV 9 vaccination, injection # two of the series. Patient ?No Gardasil injection was given without incident. See immunizations for details of immunizations administered today. VIS sheet provided: Yes Patient advised to follow up in 4 months from the 2nd injection Provider Dr Bangura was present in office at time of injection. Veronika Gee RN documented in this encounter [facility] 10-26-2022 Miscellaneous Notes Patient scheduled on 12/28/22. Called patient to schedule appointment. No response. Left VM. Ella Ferris LPN documented in this encounter [facility] 10-12-2022 Instructions Bushra Gee - 10/12/2022 5:37 PM EST Let us know if you want to do a home or outpatient sleep study if still feeling fatigued after sleeping Research some medications for anxiety and see if you want to switch off lexapro. One we discussed was duloxetine (cymbalta) Get your labs drawn when able documented in this encounter [facility] 10-12-2022 History of Present illness Narrative Chief Complaint Patient presents with: Follow Up: hasn't started Prilosec. Watching diet as of right now. Medication Problem: Feels like lexapro is effecting sexual drive HPI Natalee Collado is a 27 year old female who presents here today for Above Complaints.. Today: Hasn't started the Prilosec she was given 2 months ago, is managing her sx with diet. Has been making some changes to her diet. Sx have improved. Lexapro-would like to stay on this for now even though she feels like this is affecting her sexual drive that started this past summer. Would like to research other medications. Fatigue-recently started in the past few weeks. Has a lack of motivation. Doesn't feel like she gets restful sleep. Feels she likely snores. Past medical history, appointments, medications, allergies reviewed. Previous Medical History PAST MEDICAL HISTORY Diagnosis Date NEGATIVE MEDICAL HISTORY Previous Surgical History PAST SURGICAL HISTORY Procedure Laterality Date PAST SURGICAL HISTORY OF 04/06/2013 [place] teeth REDUCTION OF LARGE BREAST 2019 Family History FAMILY HISTORY Problem Relation Age of Onset Arthritis Mother Asthma Sister other (endometriosis) Sister Osteoporosis Maternal Grandmother Thyroid Maternal Grandmother thyroidectomy Thyroid Maternal Grandfather Diabetes Maternal Grandfather Diabetes Paternal Grandmother Patient Allergies ALLERGIES No Known Allergies Current Medications Current Outpatient Medications on File Prior to Visit Medication Sig fluocinolone (SYNALAR) 0.025 % ointment Apply to affected area as directed. APPLY PEA-Sized amount 3 TIMES DAILY FOR 2 WEEKS THEN TWICE A DAY FOR TWO WEEKS THEN ONCE A DAY for 2 weeks medroxyPROGESTERone (DEPO-PROVERA) 150 mg/mL Inject 1 mL intramuscularly every 12 weeks. magnesium gluconate (MAGONATE) 27 mg (500 mg) tab Take 1 tablet by mouth once daily. escitalopram oxalate (LEXAPRO) 10 mg tablet Take 1 tablet by mouth daily at bedtime. riboflavin, vitamin B2, (VITAMIN B-2) 100 mg tab Take 4 tablets by mouth once daily. Cholecalciferol, Vitamin D3, 125 mcg (5,000 unit) cap Take 1 capsule by mouth once daily. Syringe with Needle, Disp, (SYRINGE 3CC/22GX1) 3 mL 22 gauge x 1 use one needle and syringe for IM injection of depoprovera q 12 weeks Biotin 10,000 mcg cap Take by mouth. vitamin B complex (B COMPLEX ORAL) Take by mouth. traZODone (DESYREL) 50 mg tablet Take 1 tablet by mouth daily at bedtime. For insomnia omeprazole (PRILOSEC) 20 mg capsule Take 1 capsule by mouth daily before breakfast. 1/2 hr before meal. (Patient not taking: Reported on 10/12/2022) No current facility-administered medications on file prior to visit. Social History Social History Tobacco Use Smoking status: Never Smokeless tobacco: Never Vaping Use Vaping Use: Never used Substance Use Topics Alcohol use: Yes Comment: rare wine Drug use: No Review of Symptoms REVIEW OF SYSTEMS See HPI, otherwise negative EXAM: BP 108/80 (BP Site: Left Arm, BP Position: Sitting, BP Cuff Size: Regular Adult) Pulse 79 Resp 16 Wt 81 kg (178 lb 9.6 oz) LMP 2022 (Exact Date) SpO2 99% BMI 31.14 kg/m General Appearance: Well appearing, alert, in no acute distress, well-hydrated, well nourished.. Lungs: Lungs clear to auscultation. No wheezing, rhonchi, rales.. Heart: RRR without murmur, gallop, or rubs. No ectopy. Psychiatric: pleasant, cooperative. Health Maintenance List HEPATITIS C SCREENING Never done HIV SCREENING Never done COVID-19 VACCINE(1) due on 04/15/2023 PAP TESTING due on 05/19/2024 DTAP,TDAP,TD(7 - Td or Tdap) due on 12/27/2031 HEPATITIS B Completed INFLUENZA Completed DEPRESSION ASSESSMENT Completed Data reviewed Previous records, office notes ASSESSMENT/PLAN: 1. FABIENNE (generalized anxiety disorder) - ICD9: 300.02, ICD10: F41.1 (primary diagnosis) Continue current Lexapro at this time. Possible cause for decreased libido-explained other possible causes. Consider changing to other SSRI/SNRI or adding Wellbutrin. Patient will research these medications. 2. Situational insomnia - ICD9: 307.41, ICD10: F51.09 Continue current Lexapro at this time. Possible cause for decreased libido-explained other possible causes. Consider changing to other SSRI/SNRI or adding Wellbutrin. Patient will research these medications. 3. Fatigue, unspecified type - ICD9: 780.79, ICD10: R53.83 - IRON + TIBC - FERRITIN BLD 4. Decreased libido - ICD9: 799.81, ICD10: R68.82 Continue current Lexapro at this time. Possible cause for decreased libido-explained other possible causes. Consider changing to other SSRI/SNRI or adding Wellbutrin. Patient will research these medications. 5. Snoring - ICD9: 786.09, ICD10: R06.83 Consider sleep study. Patient will think about this. 6. Daytime sleepiness - ICD9: 780.54, ICD10: R40.0 Consider sleep study. Patient will think about this. Chalino Bob APRN.CNP Medical Decision Making: Problems: Moderate: 2+ stable chronic illnesses and 1+ chronic illnesses with change Data: Unique test result(s) reviewed: 1 Unique test(s) ordered: 1 Assessment requiring an independent historian(s) Risk: Low: Low risk from testing/treatment Medical Decision Making Level: 4 - Moderate documented in this encounter [facility] 09-14-2022 History of Present illness Narrative This is an Express Care eVisit note for Natalee Collado eVisit/Questionnaire reviewed The chief complaint for the visit - Patient presents with: Sinusitis Recommendations/Treatment plan - See My Chart Message to patient Time spent <1 minute Ada Holman APRN.CNP documented in this encounter [facility] 09-13-2022 Instructions Alannarufino Martini - 09/13/2022 3:38 PM EST GENERAL SUN SAFETY Thank you for allowing me to examine you for signs of skin cancer today. We had an opportunity to discuss my findings and any treatments I recommended. I believe that there are several steps that a person can do to help prevent skin cancers and to detect them at an early, treatable stage: 1. I highly recommend that once a month you perform your own complete skin check looking for changing or unusual spots. Use a wall-mounted mirror and a hand mirror to assist in seeing body areas that are difficult to see otherwise. If you have a family member that can assist, this is often helpful. Additional information can be obtained at: www.skincancer.org/upey-twqhki-yx formation/early-detection 2. In many cases, skin cancer can be prevented. The best way to protect yourself is to avoid too much sun and sunburns. Health care providers believe that ultraviolet rays (UV rays) from the sun damage the skin and over time lead to skin cancer. Here are ways to protect yourself: -Don't spend long periods of time in direct sunlight. -Wear hats with brims to protect your face and ears. -Wear long-sleeved shirts and pants to protect your arms and legs. -Use broad spectrum sunscreens with a SPF (skin protection factor) of 30 or higher that protect against burning and tanning rays. Apply the lotion 30 minutes before you go outside. (Broad-spectrum sunscreens protect against UV-B and UV-A rays.) -Wear sunglasses to protect your eyes. -Use a lip balm with sunscreen. -Avoid the sun between 10am and 4pm. -Show any changing mole to your health care provider. documented in this encounter [facility] 09-13-2022 History of Present illness Narrative Images from the original note were not included. Department of Dermatology Lavern Díaz APRN.HERB 09/13/2022 Last visit in Dermatology: Visit date not found Objective/Assessment/Plan 1. Acrochordon Neck - Anterior Fleshy, skin-colored sessile and pedunculated papules throughout anterior neck Benign and observe. Discussed cosmetic removal. Patient deferred at this time. 2. Lentigines Densely scattered light gloria macules and small patches on all sun exposed areas. Benign and observe. 3. Multiple benign nevi Scattered variably hyperpigmented macules and papules, with generally good symmetry and internal consistency, one to another. Overall benign-appearing. Distributed widely on the trunk and extremities. Benign and observe. 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 The nature of sun-induced photo-aging and skin cancers is discussed. Sun avoidance, protective clothing, and the use of 30-SPF sunscreens is advised. Patient is instructed to perform regular self exams. Observe for changing, symptomatic, or new skin lesions and seek care with the patient's primary care provider or with dermatology if any lesions of concern are noted. Follow-up as noted below or as needed. Lavern Díaz APRN.HERB Chief Complaint: Patient presents with: Full Body Skin Check Subjective and Objective HPI: Natalee Collado is a 27 year old female who presents for: Skin check. Desires: Total body skin check in female excluding genitals (patient has periodic examination by PCP and declines this exam) History of skin cancer?: No Areas of particular concern?: Yes - skin tags around the neck Past medical history is reviewed. Medication list is reviewed. Physical Exam included: Scalp, face, ears, neck, chest, back, abdomen, bilateral upper extremities, bilateral lower extremities, buttocks, hands, feet, nails and hair The documentation for this note was completed by Alanna Martini acting as scribe for Lavern Díaz APRN.CNP. September 13, 2022 3:37 PM Intake completed by Michelle Villanueva MA I agree with the Chief Complaint, ROS, and Past Histories independently gathered by the clinical support assistant and the remaining scribed note accurately describes my personal service to the patient. Lavern Díaz APRN.CNP documented in this encounter [facility] 08-31-2022 History of Present illness Narrative Patient identified by name and date of . Natalee Collado is here for her HPV Gardasil vaccination, injection # one of the series. Patient ?No Gardasil injection was given without incident. See immunizations for details of immunizations administered today. VIS sheet provided: Yes Patient advised to follow up in 2 months from the 1st injection Provider Jayde Bangura MD was present in office at time of injection. Jayde Bangura MD [employer] Supervisor offered: Patient declines. Samina is a 27 year old who presents for an annual gynecologic exam with complaints, vaginal itching x 1 mo . Pt reports pain with intercourse. She denies burning with urination, fevers, flank pain, and vaginal discharge. The patient had a hx of yeast infections for which she has taken oral and suppository medication. She is currently on depo. She is content with this method of control and would like to continue this. Patient notes the vaginal itching has gotten significantly better since she changed over to Depo-Provera. It still does flareup and will sometimes itch for up to 3 weeks at a time. She is avoiding any soaps directly to the vulvar area. She denies use of pads constantly. She is using good UTILITY ENGINEER skin hygiene. Does seem a little worse after intercourse. Uses condoms. Menses: the patient gets 1-2 days of spotting each month, she did not have a period this month Contraception: Depo Provera and condoms HPV vaccine: No Last Pap: 05/25/2021 normal HPV: negative History of abnormal pap: No Last mammogram: never Sexually active: Yes; one male partner History of STDS: None Patient concerns for STD exposure: No. Time with current partner: one year Pain with intercourse: Yes x1 mo OB History T0 L0 SAB0 IAB0 Ectopic0 Multiple0 Live Births0 Casino Manager History LMP: 2022 (Exact Date), Injection Age at Menarche: Age at First : Age at Menopause: Casino Manager History Comments: Sexual Activity: Yes; Male Contraception: Condom, Injection PAST MEDICAL HISTORY Diagnosis Date NEGATIVE MEDICAL HISTORY PAST SURGICAL HISTORY Procedure Laterality Date PAST SURGICAL HISTORY OF 04/06/2013 [place] teeth REDUCTION OF LARGE BREAST 2019 FAMILY HISTORY Problem Relation Age of Onset Arthritis Mother Asthma Sister other (endometriosis) Sister Osteoporosis Maternal Grandmother Thyroid Maternal Grandmother thyroidectomy Thyroid Maternal Grandfather Diabetes Maternal Grandfather Diabetes Paternal Grandmother SOCIAL HISTORY Social History Tobacco Use Smoking status: Never Smokeless tobacco: Never Vaping Use Vaping Use: Never used Substance Use Topics Alcohol use: Yes Comment: rare wine Drug use: No REVIEW OF SYSTEMS Abdomen: No abdominal pain, nausea, vomiting, diarrhea, or constipation. No bloating, early satiety, indigestion, or increased flatulence. Bladder: No dysuria, gross hematuria, urinary frequency, urinary urgency, or incontinence. Breast: No breast lumps, nipple d/c, overlying skin changes, redness or skin retraction. Allergies and current medication updated:Yes EXAM: BP 106/64 Ht 5' 3.5 (1.61m) Wt 175 lb 3.2 oz (79.5kg) LMP 2022 BMI 30.54 kg/(m^2). GENERAL: pleasant, female in no apparent distress HEENT: Normocephalic, atraumatic, mucus membranes moist, and no lesions NECK: Supple, full range of motion, no adenopathy, and thyroid normal DERMATOLOGY: Normal, without lesions, non-icteric, and non-hirsute BREAST: soft, non-tender, symmetric, no dominant mass, normal nipple-areolar complex, no lymphadenopathy, and no nipple discharge CHEST: Normal inspiratory effort ABDOMEN: soft, non-tender, and no masses PELVIC: external genitalia normal, normal Bartholin's glands, urethra, [place]'s glands, no vulvar lesions, no cervical lesions, good vaginal support, physiologic discharge present, normal appearing perineal body and perianal region, slight erythema at the introitus. No local spot tenderness. BIMANUAL: uterus normal size, shape and consistency, no adnexal masses, and non-tender RECTOVAGINAL: deferred. NEURO: alert and oriented x3,exam grossly non-focal EXTREMITIES: normal ASSESSMENT/PLAN: 1) Health maintenance: Pap/HPV up to date. HPV vaccine: Discussed with patient this and she desires to proceed with starting vaccine series today. 2) Contraception: Depo Provera. Contraceptive options reviewed and information provided. Desires to continue with Depo for now. 3) STD screening: Declined STD check. 4) Follow up one year or sooner as needed Vulvar pruritus without significant findings. Negative for yeast last year. Recent check vaginal screen today. However no focal findings. Reviewed UTILITY ENGINEER skin hygiene . will try empiric steroid taper, call or return if not significantly improved and would consider biopsy. Jayde Bangura MD documented in this encounter [facility] 08-31-2022 Instructions Jayde Bangura MD - 08/31/2022 4:19 PM EDT Gardasil Gardasil is a vaccine to protect against Human Papillomavirus (HPV) types 6, 11, 16, 18, 31,33,45, 52, 58. These viruses cause cancer and precancerous lesions on the cervix (opening between vagina and uterus), in the vagina and on the vulva (skin around the outside of the vagina) as well as genital warts. The vaccine cannot cause these diseases and cannot treat them if already present. Gardasil works best if given before contact with HPV. Most people are exposed to HPV soon after starting sexual activity. The vaccine is recommended between the ages of 9 and 45. Gardasil does not protect against all strains of HPV. Women who receive the vaccine still need to have regular pelvic exams and cervical cancer screening with the pap smear. You should ask your doctor if Gardasil is right for you if you have a weakened immune system, a bleeding disorder, plan to become soon or have a current illness causing fever. Gardasil is not recommended for women. You should be sure your doctor is aware of any allergies you have and all medications and herbal supplements you take. Gardasil is given to those ages 9-14 in 2 doses at 0 and 8 months. In ages 15-45, three injections are given at 0,2,6 months. Common side effects include pain, redness, itching and swelling at the injection site, nausea, fever, dizziness and fainting. Rare but potentially serious reactions have been reported. These include allergic reaction, swollen glands, joint and muscle pain, weakness and Guillain-Bowie syndrome. documented in this encounter [facility] 08-15-2022 History of Present illness Narrative Chief Complaint Patient presents with: increased heart burn HPI Natalee Collado is a 27 year old female who presents here today for Above Complaints. Samina is an established patient of Dr. Sree DO. Samina is a new patient to me today. Concerns today.. Heartburn --- X 1-1.5 weeks. Anything she eats gives her heartburn. Low appetite due to scared to eat. TUMS with little relief. Pepto does help but pt is not a big fan of this medication. No personal history or family hx of GERD. Reports symptoms worse with laying down. Worse after eating pasta/pasta sauce. No significant weight gain recently. Headaches -- Mainly only during changing seasons or weather changes. Unsure if allergies. Does not take allergy medication regularly. Last headache was about 1 week ago. Relief with motrin or Excedrin normally. No hx of dx of migraines. Occurs about less than 1 per month. But will be more frequent during changing weather. Denies any n/v or photophobia with headaches. Past medical history, appointments, medications, allergies reviewed. Previous Medical History PAST MEDICAL HISTORY Diagnosis Date NEGATIVE MEDICAL HISTORY Previous Surgical History PAST SURGICAL HISTORY Procedure Laterality Date PAST SURGICAL HISTORY OF 04/06/2013 [place] teeth REDUCTION OF LARGE BREAST 2019 Family History FAMILY HISTORY Problem Relation Age of Onset Arthritis Mother Asthma Sister Osteoporosis Maternal Grandmother Thyroid Maternal Grandmother thyroidectomy Thyroid Maternal Grandfather Diabetes Maternal Grandfather Diabetes Paternal Grandmother Patient Allergies ALLERGIES No Known Allergies Current Medications Current Outpatient Medications on File Prior to Visit Medication Sig medroxyPROGESTERone (DEPO-PROVERA) 150 mg/mL INJECT 1 ML INTRAMUSCULARLY EVERY 12 WEEKS. magnesium gluconate (MAGONATE) 27 mg (500 mg) tab Take 1 tablet by mouth once daily. escitalopram oxalate (LEXAPRO) 10 mg tablet Take 1 tablet by mouth daily at bedtime. riboflavin, vitamin B2, (VITAMIN B-2) 100 mg tab Take 4 tablets by mouth once daily. Cholecalciferol, Vitamin D3, 125 mcg (5,000 unit) cap Take 1 capsule by mouth once daily. Syringe with Needle, Disp, (SYRINGE 3CC/22GX1) 3 mL 22 gauge x 1 use one needle and syringe for IM injection of depoprovera q 12 weeks Biotin 10,000 mcg cap Take by mouth. vitamin B complex (B COMPLEX ORAL) Take by mouth. traZODone (DESYREL) 50 mg tablet Take 1 tablet by mouth daily at bedtime. For insomnia No current facility-administered medications on file prior to visit. Social History Social History Tobacco Use Smoking status: Never Smokeless tobacco: Never Vaping Use Vaping Use: Never used Substance Use Topics Alcohol use: Yes Comment: rare wine Drug use: No REVIEW OF SYSTEMS: as above Reviewed relevant PMHx, PSHx, Social Hx, current medications and allergies. Review of Symptoms REVIEW OF SYSTEMS See HPI. EXAM: BP 90/72 (BP Site: Left Arm, BP Position: Sitting, BP Cuff Size: Regular Adult) Pulse 62 Resp 14 Wt 80.6 kg (177 lb 9.6 oz) LMP 2022 (Exact Date) BMI 30.70 kg/m General Appearance: Well appearing, alert, in no acute distress, well-hydrated, well nourished.. Skin: Skin color, texture, turgor normal, no suspicious rashes or lesions. Head: Normocephalic, no masses, lesions, tenderness or abnormalities. Lungs: Lungs clear to auscultation. No wheezing, rhonchi, rales.. Heart: RRR without murmur, gallop, or rubs. No ectopy. Abdomen: Normal abdominal exam, Abdomen soft, non-tender. Bowel sounds normal. No masses, organomegaly. Neurologic: Gait normal. Reflexes normal and symmetric. Sensation grossly intact.. Health Maintenance List HEPATITIS C SCREENING Never done HIV SCREENING Never done DEPRESSION ASSESSMENT Never done INFLUENZA(1) due on 07/07/2022 COVID-19 VACCINE(1) due on 04/15/2023 PAP TESTING due on 05/19/2024 DTAP,TDAP,TD(6 - Td or Tdap) due on 12/27/2031 HEPATITIS B Completed ASSESSMENT/PLAN: 1. GERD without esophagitis - ICD9: 530.81, ICD10: K21.9 (primary diagnosis) Minimal relief with antacids. - Discussed lifestyle modifications including losing weight, limiting caffeine, no meals three hours before sleep, and head of bed elevation - Discussed foods to avoid that trigger symptoms. - Begin treatment with Prilosec 20 mg QD - Follow up in 2 months 2. Headaches - ICD9: 784.0, ICD10: R51.9 Likely allergy induced with weather changes. Trial daily Claritin or Marva OTC. If no relief, discussed possible triptan therapy as needed. Pt agreeable. RTO in 1-2 months to reassess. RTO in 1-2 months, sooner if needed. Prescription instructions reviewed with patient as applicable. Potential red flag symptoms discussed with the patient. Reviewed appropriate action plan to take if red flag symptoms occur. Patient agreeable to treatment plan. Susan Abernathy APRN.CNP [address] [place] [address] documented in this encounter [facility] 07-18-2022 Miscellaneous Notes Everardo Chatterjee. That refill was already sent to [facility]. You can call [facility] and have them transfer your prescription there. documented in this encounter [facility] 06-15-2022 Instructions Sanjeev Rodriguez - 06/15/2022 8:11 AM EDT Your wound is now healed. No signs of infection If nail returns ingrown, make plans to have permanent procedure documented in this encounter [facility] 06-15-2022 History of Present illness Narrative FOLLOW UP PODIATRIC OFFICE VISIT Chief Complaint: This 27 year old who presents for follow up:partial nail avulsion of left hallux lateral nail border Patient presents to clinic for follow-up partial nail avulsion of left hallux Denies any pain. Denies any drainage. Reports some swelling. PAIN EVALUATION No data found in the last 1 encounters. Hemoglobin A1C Date Value Ref Range Status 03/31/2022 5.2 4.3 - 5.6 % Final Comment: [place] [employer] guidelines indicate that patients with HgbA1c in the range 5.7-6.4% are at increased risk for development of diabetes, and intervention by lifestyle modification may be beneficial. HgbA1c greater or equal to 6.5% is considered diagnostic of diabetes. PCP: Juan A Balbuena, PAST MEDICAL HISTORY Diagnosis Date NEGATIVE MEDICAL HISTORY Current Outpatient Medications Medication Sig magnesium gluconate (MAGONATE) 27 mg (500 mg) tab Take 1 tablet by mouth once daily. escitalopram oxalate (LEXAPRO) 10 mg tablet Take 1 tablet by mouth daily at bedtime. riboflavin, vitamin B2, (VITAMIN B-2) 100 mg tab Take 4 tablets by mouth once daily. Cholecalciferol, Vitamin D3, 125 mcg (5,000 unit) cap Take 1 capsule by mouth once daily. medroxyPROGESTERone (DEPO-PROVERA) 150 mg/mL Inject 1 mL intramuscularly every 12 weeks. INJECT IM EVERY 12 WEEKS. Syringe with Needle, Disp, (SYRINGE 3CC/22GX1) 3 mL 22 gauge x 1 use one needle and syringe for IM injection of depoprovera q 12 weeks Biotin 10,000 mcg cap Take by mouth. vitamin B complex (B COMPLEX ORAL) Take by mouth. traZODone (DESYREL) 50 mg tablet Take 1 tablet by mouth daily at bedtime. For insomnia No current facility-administered medications for this visit. ALLERGIES No Known Allergies PAST SURGICAL HISTORY Procedure Laterality Date PAST SURGICAL HISTORY OF 04/06/2013 [place]es teeth REDUCTION OF LARGE BREAST 2019 Physical Exam: OBJECTIVE: Constitutional: Pt is a well developed 27 year old female who is alert, oriented, cooperative and in no apparent distress. Eyes: Following during examination. No redness or drainage. Respiratory: RR normal and nonlabored. Even breathing. No evidence of distress. Psychology: Patient is engaged during conversation. Normal affect and mood. Does not appear depressed or anxious. NVSI unchanged from previous visit. Dermatological: Left hallux lateral nail border s/p avulsion. No redness drainage or signs of infection. No evidence of spicule formation. No pain to palpation. Musculoskeletal/Orthopaedic: Patient has no pain to palpation of left hallux ASSESSMENT: (S91.109A) Open wound of toe, initial encounter (primary encounter diagnosis) PLAN: Patient is s/p partial nail avulsion of left hallux Her nail bed is now healed. Slight swelling present which is normal. Informed patient this should continue to subside No evidence of infection and no evidence of spicule. If nail ingrown returns, would consider partial nail matrixectomy Patient can follow-up as needed Sanjeev Rodriguez DPM AMB ROOMING INTAKE FLOWSHEET DATA Patient presents with: Left Great Toe - Follow Up, Ingrown Toenail Patient 2 wks s/p partial nail avulsion. Denies pain. Wound healed. documented in this encounter [facility] 04-16-2022 History of Present illness Narrative CC: Natalee Collado is a 27 year old female who presents to the office for headaches HPI: Headaches, off and on, intermittent, seem to be increasing in intensity and frequency, sometimes weekly now, lasting hours. Sometimes associated with nausea, feels better if able to lay down and sleep, described as pulsating/pressure like, mostly right sided. No vision or hearing changes. No fevers or chills. Has been taking her vitamin D supplement. Mother does have migraine headaches. No syncope. Seems to be worse when there are pressure/barometric or weather changes such as snowing or raining etc. Mood, stable, taking lexapro, feels she is doing well on this right now. PAST MEDICAL HISTORY Diagnosis Date NEGATIVE MEDICAL HISTORY PAST SURGICAL HISTORY Procedure Laterality Date PAST SURGICAL HISTORY OF 04/06/2013 [place]es teeth REDUCTION OF LARGE BREAST 2018 Current Outpatient Medications Medication Sig escitalopram oxalate (LEXAPRO) 10 mg tablet Take 1 tablet by mouth daily at bedtime. Cholecalciferol, Vitamin D3, 125 mcg (5,000 unit) cap Take 1 capsule by mouth once daily. medroxyPROGESTERone (DEPO-PROVERA) 150 mg/mL Inject 1 mL intramuscularly every 12 weeks. INJECT IM EVERY 12 WEEKS. Syringe with Needle, Disp, (SYRINGE 3CC/22GX1) 3 mL 22 gauge x 1 use one needle and syringe for IM injection of depoprovera q 12 weeks Biotin 10,000 mcg cap Take by mouth. vitamin B complex (B COMPLEX ORAL) Take by mouth. traZODone (DESYREL) 50 mg tablet Take 1 tablet by mouth daily at bedtime. For insomnia Magnesium Gluconate 30 mg (550 mg) tab Take 1 tablet by mouth once daily. riboflavin, vitamin B2, (VITAMIN B-2) 100 mg tab Take 4 tablets by mouth once daily. No current facility-administered medications for this visit. ALLERGIES No Known Allergies Social History Tobacco Use Smoking status: Never Smoker Smokeless tobacco: Never Used Vaping Use Vaping Use: Never used Substance Use Topics Alcohol use: Yes Comment: rare wine Drug use: No ROS: See HPI PE: BP 100/60 Pulse 64 Temp (Src) 97 (Right Tympanic) Resp 16 Ht 5' 3.78 (1.62m) Wt 175 lb (79.4kg) LMP 2022 BMI 30.25 kg/(m^2). Gen: A&OX3, NAD, non-toxic appearing HEENT: PERRLA, EOMs intact b/l, nares without drainage, pharynx without erythema, exudate, lesions, or drainage. Uvula midline. Neck: No LAD, no thyromegaly, no meningismus. CV: RRR, no murmur Lungs: CTA b/l, no wheezing Skin: No rashes, lesions, or wounds on exposed skin. Non focal neuro exam- normal overall No edema, normal pulses ASSESSMENT/PLAN: 1. Headache disorder - ICD9: 784.0, ICD10: R51.9 (primary diagnosis) Likely migraine headaches, she wants to try with supplements to see if can improve symptoms, will continue her vitamin D and add on magnesium and riboflavin, f/u in 2-3 months and prn in office, no red flag symptoms. - MAGNESIUM GLUCONATE 30 MG (550 MG) TABLET - RIBOFLAVIN (VITAMIN B2) 100 MG TABLET 2. FABIENNE (generalized anxiety disorder) - ICD9: 300.02, ICD10: F41.1 - stable, rx refilled. - ESCITALOPRAM 10 MG TABLET 3. Situational insomnia - ICD9: 307.41, ICD10: F51.09 Stable, rx refilled. - ESCITALOPRAM 10 MG TABLET Juan A Balbuena DO Return if no improvement. Follow up with Juan A Balbuena DO. To ER if develops chest pain, shortness of breath. Discussed risks, benefits, alternatives, and potential side effects of medications. Patient/Guardian expressed understanding and agreed with the plan. See patient instructions. Juan A Balbuena DO [address] [place] [address] documented in this encounter [facility] 03-31-2022 History of Present illness Narrative Radiology Service Progress Note PATIENT NAME: Natalee Collado DATE OF SERVICE: March 31, 2022 TIME: 12:18 PM PATIENT IDENTITY VERIFICATION COMPLETED USING TWO (2) IDENTIFIERS: Name and Date of confirmed by patient verbally. FALL SCREENING: Has the patient had 2 falls in the last year or 1 fall with injury or currently using an Ambulatory Assistive Device (Walker, Cane, Wheelchair, Crutches, etc.)? No PATIENT GENDER DATA: Female. status: : No status: NO. PATIENT RELEVANT IMPLANT DATA REVIEWED: Yes RADIOLOGY DEPARTMENT: General X-ray: Exam(s) Completed: Upper Extremity X-Ray(s): Fingers/Thumb, left ring PERIPHERAL IV DATA: Not applicable SIGNED BY: RT Brittany(R) March 31, 2022 12:18 PM documented in this encounter [facility] 03-31-2022 Miscellaneous Notes Patient calls to report left ring finger swollen, slight redness and warmth, and tender to touch and to bend. Nurse triage completed. Protocol recommends see PCP within 24 hours. Patient agreeable. Appointment scheduled. Care advice reviewed. Patient verbalizes understanding. Reason for Disposition Looks infected (spreading redness, pus) (Exception: localized redness and swelling of skin around nail) Answer Assessment - Initial Assessment Questions 1. ONSET: Two weeks ago 2. LOCATION and RADIATION: Left ring finger at the second joint and slightly below. 3. SEVERITY: - MILD (1-3): doesn't interfere with normal activities. - MODERATE (4-7): interferes with normal activities or awakens from sleep. Mild to moderate. Painful with bending finger and once bends the finger and goes to release the finger it sticks for a few seconds. 4. APPEARANCE: Patient reports swelling, slight redness, and slight warmth over the joint and slightly below. No bruising or pallor. Patient reports that the swelling is noticeable but wouldn't say it is double the size of the right ring finger. 5. WORK OR EXERCISE: No recent injury d/t work or exercise. 6. CAUSE: Unknown 7. AGGRAVATING FACTORS:any type of movement/bending of the finger. 8. OTHER SYMPTOMS: No fever, neck pain, or numbness. Patient has been using ice and advil for past 2 weeks with little relief. 9. : Unknown Protocols used: FINGER [id number] documented in this encounter [facility] 02-09-2022 Miscellaneous Notes Advised pt to make appt to discuss concern with provider Annita Tee Ma documented in this encounter [facility] 03-15-2021 History of Past i llness Narrative Problem Noted Date Resolved Date Chronic right shoulder pain 03/15/202104/06 Gluten intolerance 07/31/2018 05/19/2021 documented as of this encounter (statuses as of 02/09/2022) [facility]21 History of Past illness Narrative* Problem Noted Date Resolved Date Chronic right shoulder pain 03/15/202104/06 Gluten intolerance 07/31/2018 05/19/2021 documented as of this encounter (statuses as of 03/21/2022) [facility] History of Past illness Narrative* Problem Noted Date Resolved Date Chronic right shoulder pain 03/15/202104/06 Gluten intolerance 07/31/2018 05/19/2021 documented as of this encounter (statuses as of 03/31/2022) [facility] History of Past illness Narrative* Problem Noted Date Resolved Date Chronic right shoulder pain 03/15/202104/06 Gluten intolerance 07/31/2018 05/19/2021 documented as of this encounter (statuses as of 04/06/2022) [facility] History of Past illness Narrative* Problem Noted Date Resolved Date Chronic right shoulder pain 03/15/202104/06 Gluten intolerance 07/31/2018 05/19/2021 documented as of this encounter (statuses as of 04/16/2022) [facility] History of Past illness Narrative* Problem Noted Date Resolved Date Chronic right shoulder pain 03/15/202104/06 Gluten intolerance 07/31/2018 05/19/2021 documented as of this encounter (statuses as of 06/15/2022) [facility] History of Past illness Narrative* Problem Noted Date Resolved Date Chronic right shoulder pain 03/15/202104/06 Gluten intolerance 07/31/2018 05/19/2021 documented as of this encounter (statuses as of 07/18/2022) [facility] History of Past illness Narrative* Problem Noted Date Resolved Date Chronic right shoulder pain 03/15/202104/06 Gluten intolerance 07/31/2018 05/19/2021 documented as of this encounter (statuses as of 07/18/2022) [facility] History of Past illness Narrative* Problem Noted Date Resolved Date Chronic right shoulder pain 03/15/202104/06 Gluten intolerance 07/31/2018 05/19/2021 documented as of this encounter (statuses as of 08/15/2022) [facility] History of Past illness Narrative* Problem Noted Date Resolved Date Chronic right shoulder pain 03/15/202104/06 Strain of right trapezius muscle 06/10/2019 08/31/2022 Routine physical examination 07/31/2018 Gluten intolerance 07/31/2018 05/19/2021 Anxiety 07/31/2018 08/31/2022 Fatigue 07/31/2018 08/31/2022 Macromastia 06/20/2018 08/31/2022 Overview: Added automatically from request for surgery [id number] documented as of this encounter (statuses as of 08/31/2022) [facility] History of Past illness Narrative* Problem Noted Date Resolved Date Chronic right shoulder pain 03/15/202104/06 Strain of right trapezius muscle 06/10/2019 08/31/2022 Routine physical examination 07/31/2018 Gluten intolerance 07/31/2018 05/19/2021 Anxiety 07/31/2018 08/31/2022 Fatigue 07/31/2018 08/31/2022 Macromastia 06/20/2018 08/31/2022 Overview: Added automatically from request for surgery [id number] documented as of this encounter (statuses as of 09/14/2022) [facility] History of Past illness Narrative* Problem Noted Date Resolved Date Chronic right shoulder pain 03/15/202104/06 Strain of right trapezius muscle 06/10/2019 08/31/2022 Routine physical examination 07/31/2018 Gluten intolerance 07/31/2018 05/19/2021 Anxiety 07/31/2018 08/31/2022 Fatigue 07/31/2018 08/31/2022 Macromastia 06/20/2018 08/31/2022 Overview: Added automatically from request for surgery [id number] documented as of this encounter (statuses as of 09/14/2022) [facility] History of Past illness Narrative* Problem Noted Date Resolved Date Chronic right shoulder pain 03/15/202104/06 Strain of right trapezius muscle 06/10/2019 08/31/2022 Routine physical examination 07/31/2018 Gluten intolerance 07/31/2018 05/19/2021 Anxiety 07/31/2018 08/31/2022 Fatigue 07/31/2018 08/31/2022 Macromastia 06/20/2018 08/31/2022 Overview: Added automatically from request for surgery [id number] documented as of this encounter (statuses as of 10/12/2022) [facility] History of Past illness Narrative* Problem Noted Date Resolved Date Chronic right shoulder pain 03/15/202104/06 Strain of right trapezius muscle 06/10/2019 08/31/2022 Routine physical examination 07/31/2018 Gluten intolerance 07/31/2018 05/19/2021 Anxiety 07/31/2018 08/31/2022 Fatigue 07/31/2018 08/31/2022 Macromastia 06/20/2018 08/31/2022 Overview: Added automatically from request for surgery [id number] documented as of this encounter (statuses as of 10/26/2022) [facility] History of Past illness Narrative* Problem Noted Date Resolved Date Chronic right shoulder pain 03/15/202104/06 Strain of right trapezius muscle 06/10/2019 08/31/2022 Routine physical examination 07/31/2018 Gluten intolerance 07/31/2018 05/19/2021 Anxiety 07/31/2018 08/31/2022 Fatigue 07/31/2018 08/31/2022 Macromastia 06/20/2018 08/31/2022 Overview: Added automatically from request for surgery [id number] documented as of this encounter (statuses as of 11/15/2022) [facility] History of Past illness Narrative* Problem Noted Date Resolved Date Chronic right shoulder pain 03/15/202104/06 Strain of right trapezius muscle 06/10/2019 08/31/2022 Routine physical examination 07/31/2018 Gluten intolerance 07/31/2018 05/19/2021 Anxiety 07/31/2018 08/31/2022 Fatigue 07/31/2018 08/31/2022 Macromastia 06/20/2018 08/31/2022 Overview: Added automatically from request for surgery [id number] documented as of this encounter (statuses as of 11/30/2022) [facility] History of Past illness Narrative* Problem Noted Date Resolved Date Chronic right shoulder pain 03/15/202104/06 Strain of right trapezius muscle 06/10/2019 08/31/2022 Routine physical examination 07/31/2018 Gluten intolerance 07/31/2018 05/19/2021 Anxiety 07/31/2018 08/31/2022 Fatigue 07/31/2018 08/31/2022 Macromastia 06/20/2018 08/31/2022 Overview: Added automatically from request for surgery [id number] documented as of this encounter (statuses as of 12/15/2022) [facility] History of Past illness Narrative* Problem Noted Date Resolved Date Chronic right shoulder pain 03/15/202104/06 Strain of right trapezius muscle 06/10/2019 08/31/2022 Routine physical examination 07/31/2018 Gluten intolerance 07/31/2018 05/19/2021 Anxiety 07/31/2018 08/31/2022 Fatigue 07/31/2018 08/31/2022 Macromastia 06/20/2018 08/31/2022 Overview: Added automatically from request for surgery [id number] documented as of this encounter (statuses as of 01/05/2023) [facility] History of Past illness Narrative* Problem Noted Date Resolved Date Chronic right shoulder pain 03/15/202104/06 Strain of right trapezius muscle 06/10/2019 08/31/2022 Routine physical examination 07/31/2018 Gluten intolerance 07/31/2018 05/19/2021 Anxiety 07/31/2018 08/31/2022 Fatigue 07/31/2018 08/31/2022 Macromastia 06/20/2018 08/31/2022 Overview: Added automatically from request for surgery [id number] documented as of this encounter (statuses as of 01/14/2023) [facility] History of Past illness Narrative* Problem Noted Date Resolved Date Chronic right shoulder pain 03/15/202104/06 Strain of right trapezius muscle 06/10/2019 08/31/2022 Routine physical examination 07/31/2018 Gluten intolerance 07/31/2018 05/19/2021 Anxiety 07/31/2018 08/31/2022 Fatigue 07/31/2018 08/31/2022 Macromastia 06/20/2018 08/31/2022 Overview: Added automatically from request for surgery [id number] documented as of this encounter (statuses as of 02/17/2023) [facility] History of Past illness Narrative* Problem Noted Date Resolved Date Chronic right shoulder pain 03/15/202104/06 Strain of right trapezius muscle 06/10/2019 08/31/2022 Routine physical examination 07/31/2018 Gluten intolerance 07/31/2018 05/19/2021 Anxiety 07/31/2018 08/31/2022 Fatigue 07/31/2018 08/31/2022 Macromastia 06/20/2018 08/31/2022 Overview: Added automatically from request for surgery [id number] documented as of this encounter (statuses as of 03/17/2023) [facility] History of Past illness Narrative* Problem Noted Date Resolved Date Chronic right shoulder pain 03/15/2021 06/05/2021 Strain of right trapezius muscle 06/10/2019 08/31/2022 Routine physical examination 07/31/2018 Gluten intolerance 07/31/2018 05/19/2021 Anxiety 07/31/2018 08/31/2022 Fatigue 07/31/2018 08/31/2022 Macromastia 06/20/2018 08/31/2022 Overview: Added automatically from request for surgery [id number] documented as of this encounter (statuses as of 04/13/2023) [facility] History of Past illness Narrative* Problem Noted Date Diagnosed Date Resolved Date Chronic right shoulder pain 03/15/2021 04/22/2021 Strain of right trapezius muscle 06/10/2019 08/31/2022 Routine physical examination 07/31/2018 08/31/2022 Gluten intolerance 07/31/2018 Anxiety 07/31/2018 08/31/2022 Fatigue 07/31/2018 08/31/2022 Macromastia 06/20/2018 08/31/2022 Overview: Added automatically from request for surgery [id number] documented as of this encounter (statuses as of 06/21/2023) [facility] History of Past illness Narrative* Problem Noted Date Diagnosed Date Resolved Date Chronic right shoulder pain 03/15/2021 04/22/2021 Strain of right trapezius muscle 06/10/2019 08/31/2022 Routine physical examination 07/31/2018 08/31/2022 Gluten intolerance 07/31/2018 Anxiety 07/31/2018 08/31/2022 Fatigue 07/31/2018 08/31/2022 Macromastia 06/20/2018 08/31/2022 Overview: Added automatically from request for surgery [id number] documented as of this encounter (statuses as of 06/22/2023) [facility] History of Past illness Narrative* Problem Noted Date Diagnosed Date Resolved Date Chronic right shoulder pain 03/15/2021 04/22/2021 Strain of right trapezius muscle 06/10/2019 08/31/2022 Routine physical examination 07/31/2018 08/31/2022 Gluten intolerance 07/31/2018 Anxiety 07/31/2018 08/31/2022 Fatigue 07/31/2018 08/31/2022 Macromastia 06/20/2018 08/31/2022 Overview: Added automatically from request for surgery [id number] documented as of this encounter (statuses as of 06/23/2023) [facility] History of Past illness Narrative* Problem Noted Date Diagnosed Date Resolved Date Chronic right shoulder pain 03/15/2021 04/22/2021 Strain of right trapezius muscle 06/10/2019 08/31/2022 Routine physical examination 07/31/2018 08/31/2022 Gluten intolerance 07/31/2018 1 Anxiety 07/31/2018 08/31/2022 Fatigue 07/31/2018 08/31/2022 Macromastia 06/20/2018 08/31/2022 Overview: Added automatically from request for surgery [id number] documented as of this encounter (statuses as of 09/07/2023) [facility] History of Past illness Narrative* Problem Noted Date Diagnosed Date Resolved Date Chronic right shoulder pain 03/15/2021 04/22/2021 Strain of right trapezius muscle 06/10/2019 08/31/2022 Routine physical examination 07/31/2018 08/31/2022 Gluten intolerance 07/31/2018 1 Anxiety 07/31/2018 08/31/2022 Fatigue 07/31/2018 08/31/2022 Macromastia 06/20/2018 08/31/2022 Overview: Added automatically from request for surgery [id number] documented as of this encounter (statuses as of 09/25/2023) [facility] History of Past illness Narrative* Problem Noted Date Diagnosed Date Resolved Date Chronic right shoulder pain 03/15/2021 04/22/2021 Strain of right trapezius muscle 06/10/2019 08/31/2022 Routine physical examination 07/31/2018 08/31/2022 Gluten intolerance 07/31/2018 Anxiety 07/31/2018 08/31/2022 Fatigue 07/31/2018 08/31/2022 Macromastia 06/20/2018 08/31/2022 Overview: Added automatically from request for surgery [id number] documented as of this encounter (statuses as of 10/05/2023) [facility] History of Past illness Narrative* Problem Noted Date Diagnosed Date Resolved Date Chronic right shoulder pain 03/15/2021 04/22/2021 Strain of right trapezius muscle 06/10/2019 08/31/2022 Routine physical examination 07/31/2018 08/31/2022 Gluten intolerance 07/31/2018 Anxiety 07/31/2018 08/31/2022 Fatigue 07/31/2018 08/31/2022 Macromastia 06/20/2018 08/31/2022 Overview: Added automatically from request for surgery [id number] documented as of this encounter (statuses as of 10/06/2023) [facility] History of Past illness Narrative* Problem Noted Date Diagnosed Date Resolved Date Chronic right shoulder pain 03/15/2021 04/22/2021 Strain of right trapezius muscle 06/10/2019 08/31/2022 Routine physical examination 07/31/2018 08/31/2022 Gluten intolerance 07/31/2018 Anxiety 07/31/2018 08/31/2022 Fatigue 07/31/2018 08/31/2022 Macromastia 06/20/2018 08/31/2022 Overview: Added automatically from request for surgery [id number] documented as of this encounter (statuses as of 02/19/2024) [facility] History of Past illness Narrative* Problem Noted Date Diagnosed Date Resolved Date Chronic right shoulder pain 03/15/2021 04/22/2021 Strain of right trapezius muscle 06/10/2019 08/31/2022 Routine physical examination 07/31/2018 08/31/2022 Gluten intolerance 07/31/2018 Anxiety 07/31/2018 08/31/2022 Fatigue 07/31/2018 08/31/2022 Macromastia 06/20/2018 08/31/2022 Overview: Added automatically from request for surgery [id number] documented as of this encounter (statuses as of 02/19/2024) [facility] note* Diagnosis Headache disorder- Primary Headache FABIENNE (generalized anxiety disorder) Generalized anxiety disorder Situational insomnia Transient disorder of initiating or maintaining sleep documented in this encounter [facility]* Diagnosis Open wound of toe, initial encounter- Primary [facility] Diagnosis GERD without esophagitis- Primary Esophageal reflux Headaches [facility] Diagnosis Encounter for gynecological examination (general) (routine) without abnormal findings- Primary Obesity, Class I, BMI 30-34.9 Obesity, unspecified Need for prophylactic vaccination/inoculation against viral disease Need for prophylactic vaccination and inoculation against other viral diseases Vaginal itching Pruritus of genital organs [facility] Diagnosis Acrochordon- Primary Unspecified hypertrophic and atrophic condition of skin Lentigines Other dyschromia Multiple benign nevi Benign neoplasm of skin, site unspecified [place] angioma Nevus, non-neoplastic [facility] Diagnosis Treatment not available- Primary Procedure not carried out for other reasons [facility] Diagnosis FABIENNE (generalized anxiety disorder)- Primary Generalized anxiety disorder Situational insomnia Transient disorder of initiating or maintaining sleep Fatigue, unspecified type Decreased libido Snoring Other dyspnea and respiratory abnormality Daytime sleepiness documented in this encounter [facility]* Diagnosis Need for prophylactic vaccination/inoculation against viral disease- Primary Need for prophylactic vaccination and inoculation against other viral diseases [facility] Diagnosis FABIENNE (generalized anxiety disorder)- Primary Generalized anxiety disorder Situational insomnia Transient disorder of initiating or maintaining sleep Fatigue, unspecified type Decreased libido [facility] Diagnosis FABIENNE (generalized anxiety disorder) Generalized anxiety disorder Situational insomnia Transient disorder of initiating or maintaining sleep Fatigue, unspecified type Decreased libido [facility] Diagnosis Need for prophylactic vaccination/inoculation against viral disease- Primary Need for prophylactic vaccination and inoculation against other viral diseases [facility] Diagnosis Well adult exam- Primary Routine general medical examination at a health care facility FABIENNE (generalized anxiety disorder) Generalized anxiety disorder Situational insomnia Transient disorder of initiating or maintaining sleep Vitamin D deficiency Unspecified vitamin D deficiency Family history of premature coronary heart disease Family history of ischemic heart disease Cardiac murmur, previously undiagnosed Undiagnosed cardiac murmurs [facility] Diagnosis Vitamin D deficiency- Primary Unspecified vitamin D deficiency Well adult exam Routine general medical examination at a health care facility FABIENNE (generalized anxiety disorder) Generalized anxiety disorder Screening for diabetes mellitus Encounter for lipid screening for cardiovascular disease Screening for lipoid disorders Screening for thyroid disorder [facility] Diagnosis Encounter for gynecological examination (general) (routine) without abnormal findings- Primary Screening for cervical cancer Screening for malignant neoplasm of the cervix Encounter for screening for human papillomavirus (HPV) Special screening examination for human papillomavirus (HPV) [facility]* Diagnosis Headache disorder [facility] Diagnosis Migraine without aura, intractable, without status migrainosus- Primary [facility]* Diagnosis Migraine without aura, intractable, without status migrainosus [facility]* Diagnosis LLQ pain- Primary Abdominal pain, left lower quadrant Suprapubic pain Abdominal pain, other specified site Change in stool habits Other symptoms involving digestive system Situational insomnia Transient disorder of initiating or maintaining sleep FABIENNE (generalized anxiety disorder) Generalized anxiety disorder [facility] Diagnosis LLQ pain Abdominal pain, left lower quadrant Suprapubic pain Abdominal pain, other specified site Change in stool habits Other symptoms involving digestive system [facility]* Diagnosis FABIENNE (generalized anxiety disorder)- Primary Generalized anxiety disorder Migraine without aura, intractable, without status migrainosus Class 1 obesity with body mass index (BMI) of 31.0 to 31.9 in adult, unspecified obesity type, unspecified whether serious comorbidity present [facility]* Diagnosis Pre-operative examination- Primary Preoperative examination, unspecified Macromastia Hypertrophy of breast FABIENNE (generalized anxiety disorder) Generalized anxiety disorder LLQ pain Abdominal pain, left lower quadrant Suprapubic pain Abdominal pain, other specified site Change in stool habits Other symptoms involving digestive system [facility]* Diagnosis Pre-operative examination- Primary Preoperative examination, unspecified Macromastia Hypertrophy of breast FABIENNE (generalized anxiety disorder) Generalized anxiety disorder Finger swelling Swelling of limb Pain of finger of left hand Pain in limb [facility]* Diagnosis Pre-operative examination- Primary Preoperative examination, unspecified Macromastia Hypertrophy of breast FABIENNE (generalized anxiety disorder) Generalized anxiety disorder Left wrist pain Pain in joint, forearm Injury of left wrist, initial encounter Left hand pain Pain in limb [facility]* Diagnosis Pre-operative examination- Primary Preoperative examination, unspecified Macromastia Hypertrophy of breast FABIENNE (generalized anxiety disorder) Generalized anxiety disorder Class 1 obesity with body mass index (BMI) of 30.0 to 30.9 in adult, unspecified obesity type, unspecified whether serious comorbidity present- Primary FABIENNE (generalized anxiety disorder) Generalized anxiety disorder Situational insomnia Transient disorder of initiating or maintaining sleep [facility]* Diagnosis Pre-operative examination- Primary Preoperative examination, unspecified Macromastia Hypertrophy of breast FABIENNE (generalized anxiety disorder) Generalized anxiety disorder Migraine without aura, intractable, without status migrainosus [facility]* Diagnosis Pre-operative examination- Primary Preoperative examination, unspecified Macromastia Hypertrophy of breast FABIENNE (generalized anxiety disorder) Generalized anxiety disorder Obesity, Class I, BMI 30-34.9- Primary Obesity, unspecified [facility]* Diagnosis Pre-operative examination- Primary Preoperative examination, unspecified Macromastia Hypertrophy of breast FABIENNE (generalized anxiety disorder) Generalized anxiety disorder Encounter for gynecological examination (general) (routine) without abnormal findings- Primary Encounter for surveillance of injectable contraceptive Surveillance of other previously prescribed contraceptive method Vaginal discharge Leukorrhea, not specified as infective documented in this encounter [facility]* Diagnosis Pre-operative examination- Primary Preoperative examination, unspecified Macromastia Hypertrophy of breast FABIENNE (generalized anxiety disorder) Generalized anxiety disorder Obesity, Class I, BMI 30-34.9- Primary Obesity, unspecified Screening for depression Class 1 obesity with body mass index (BMI) of 31.0 to 31.9 in adult, unspecified obesity type, unspecified whether serious comorbidity present Muscle strain Unspecified site of sprain and strain [facility]* Diagnosis Pre-operative examination- Primary Preoperative examination, unspecified Macromastia Hypertrophy of breast FABIENNE (generalized anxiety disorder) Generalized anxiety disorder Migraine without aura, intractable, without status migrainosus- Primary Obesity, Class I, BMI 30-34.9 Obesity, unspecified [facility]* Diagnosis Pre-operative examination- Primary Preoperative examination, unspecified Macromastia Hypertrophy of breast FABIENNE (generalized anxiety disorder) Generalized anxiety disorder Migraine without aura, intractable, without status migrainosus- Primary [facility]* Diagnosis Pre-operative examination- Primary Preoperative examination, unspecified Macromastia Hypertrophy of breast FABIENNE (generalized anxiety disorder) Generalized anxiety disorder Obesity, Class I, BMI 30-34.9 Obesity, unspecified [facility]* Diagnosis Pre-operative examination- Primary Preoperative examination, unspecified Macromastia Hypertrophy of breast FABIENNE (generalized anxiety disorder) Generalized anxiety disorder Obesity, Class I, BMI 30-34.9- Primary Obesity, unspecified Well adult exam Routine general medical examination at a health care facility Encounter for lipid screening for cardiovascular disease Screening for lipoid disorders [facility]* Diagnosis Pre-operative examination- Primary Preoperative examination, unspecified Macromastia Hypertrophy of breast FABIENNE (generalized anxiety disorder) Generalized anxiety disorder Obesity, Class I, BMI 30-34.9 Obesity, unspecified [facility]* Diagnosis Pre-operative examination- Primary Preoperative examination, unspecified Macromastia Hypertrophy of breast FABIENNE (generalized anxiety disorder) Generalized anxiety disorder Obesity, Class I, BMI 30-34.9 Obesity, unspecified documented in this encounter [facility] for referral (narrative)* Outpatient Procedure (Routine) - Authorized Specialty Diagnoses / Procedures Referred By Contac t Referred To [facility] Diagnoses Family history of premature coronary heart disease Cardiac murmur, previously undiagnosed Procedures ECHO ECHO TTHRC R-T 2D W/WOM-MODE COMPL SPEC&COLR D Juan A Balbuena DO [address] [place] [address] [facility] [place] [address] [place] [id number] Referral ID Status Reason Start Date Expiration Date Visits Requested Visits Authorized [id number] Authorized Auto-Generat ed Referral 04/12/2023 04/11/2024 1 1 * Outpatient Procedure (Routine) - Closed Specialty Diagnoses / Procedures Referred By Contac t Referred To Contact [facility] Diagnoses Family history of premature coronary heart disease Cardiac murmur, previously undiagnosed Procedures ECG COMPLETE ECG ROUTINE ECG W/LEAST 12 LDS W/I&R Juan A Balbuena DO [address] [place] [address] [facility] [place] [id number] Referral ID Status Reason Start Date Expiration Date V isits Requested Visits Authorized [id number] Closed Auto-Generate d Referral 04/12/2023 04/11/2024 1 1 [facility] for referral (narrative)* Diagnostic Procedure Only (Routine) - Authorized Specialty Diagnoses / Procedures Referred By Contac t Referred To Contact US IMAGING Diagnoses LLQ pain Suprapubic pain Change in stool habits Procedures US FEMALE PELVIS TRANSVAG US TRANSVAGINAL Chalino Bob APRN.CNP [address] [place] [address] [place] [address] Referral ID Status Reason Start Date Expiration Date Visits Requested Visits Authorized [id number] Authorized Auto-Generat ed Referral 03/06/2024 04/05/2025 1 1 * Diagnostic Procedure Only (Routine) - Authorized Specialty Diagnoses / Procedures Referred By Contac t Referred To Contact US IMAGING Diagnoses LLQ pain Suprapubic pain Change in stool habits Procedures US FEMALE PELVIS TRANSABD LTD US PELVIC NONOBSTETRIC IMAGE DCMTN LIMITED/F/U Chalino Bob APRN.[employer] FORMING MACHINE ADJUSTER [address] [place] [address] [place] [address] Referral ID Status Reason Start Date Expiration Date Visits Requested Visits Authorized [id number] Authorized Auto-Generat ed Referral 03/06/2024 04/05/2025 1 1 * Diagnostic Procedure Only (Routine) - Authorized Specialty Diagnoses / Procedures Referred By Contac t Referred To Contact US IMAGING Diagnoses LLQ pain Suprapubic pain Change in stool habits Procedures US ABDOMEN LTD US ABDOMINAL REAL TIME W/IMAGE LIMITED Chalino Bob APRN.[employer] MACHINE ADJUSTER [address] [place] [address] [place] [address] Referral ID Status Reason Start Date Expiration Date Visits Requested Visits Authorized [id number] Authorized Auto-Generat ed Referral 03/06/2024 04/05/2025 1 1 * Diagnostic Procedure Only (Routine) - Authorized Specialty Diagnoses / Procedures Referred By Contac t Referred To Contact XR IMAGING Diagnoses LLQ pain Suprapubic pain Change in stool habits Procedures XR ABDOMEN 1V SUPINE RADIOLOGIC EXAM ABDOMEN 1 VIEW Chalino Bob APRN.[employer] MACHINE ADJUSTER [address] [place] [address] [place] [address] Referral ID Status Reason Start Date Expiration Date Visits Requested Visits Authorized [id number] Authorized Auto-Generat ed Referral 03/06/2024 04/05/2025 1 1 [facility] for referral (narrative)* Diagnostic Procedure Only (Routine) - Closed Specialty Diagnoses / Procedures Referred By Contac t Referred To Contact US IMAGING Diagnoses LLQ pain Suprapubic pain Change in stool habits Procedures US FEMALE PELVIS TRANSVAG US TRANSVAGINAL Chalino Bob APRN.[employer]ACHINE ADJUSTER [address] [place] [address] [place] [address] Referral ID Status Reason Start Date Expiration Date V isits Requested Visits Authorized [id number] Closed Auto-Generate d Referral 03/06/2024 04/05/2025 1 1 * Diagnostic Procedure Only (Routine) - Closed Specialty Diagnoses / Procedures Referred By Contac t Referred To Contact US IMAGING Diagnoses LLQ pain Suprapubic pain Change in stool habits Procedures US FEMALE PELVIS TRANSABD LTD US PELVIC NONOBSTETRIC IMAGE DCMTN LIMITED/F/U Chalino Bob APRN.[employer] MACHINE ADJUSTER [address] [place] [address] [place] [address] Referral ID Status Reason Start Date Expiration Date V isits Requested Visits Authorized [id number] Closed Auto-Generate d Referral 03/06/2024 04/05/2025 1 1 [facility] for referral (narrative)* Diagnostic Procedure Only (Routine) - Closed Specialty Diagnoses / Procedures Referred By Contac t Referred To Contact XR IMAGING Diagnoses LLQ pain Suprapubic pain Change in stool habits Procedures XR ABDOMEN 1V SUPINE RADIOLOGIC EXAM ABDOMEN 1 VIEW Chalino Bob APRN.[employer]MING MACHINE ADJUSTER [address] [place] [address] [place] [address] Referral ID Status Reason Start Date Expiration Date V isits Requested Visits Authorized [id number] Closed Auto-Generate d Referral 03/06/2024 04/05/2025 1 1 [facility] for referral (narrative)* Diagnostic Procedure Only (Urgent) - Closed Specialty Diagnoses / Procedures Referred By Contac t Referred To Contact XR IMAGING Diagnoses Finger swelling Pain of finger of left hand Procedures XR DIGIT GENERAL 3V FRONTAL/LAT/OBL LEFT RADEX FINGR MINIMUM 2 VIEWS Chalino Bob APRN.[employer] MACHINE ADJUSTER [address] [place] [address] [place] [address] Referral ID Status Reason Start Date Expiration Date V isits Requested Visits Authorized [id number] Closed Auto-Generate d Referral 03/31/2022 04/30/2023 1 1 [facility] for referral (narrative)* Diagnostic Procedure Only (Urgent) - Closed Specialty Diagnoses / Procedures Referred By Contac t Referred To Contact XR IMAGING Diagnoses Left hand pain Procedures XR HAND GENERAL 3V PA/LAT/OBL LEFT RADEX HAND MINIMUM 3 VIEWS Miranda Mcintosh APRN.[employer] MACHINE ADJUSTER [address] [place] [address] [place] [address] Referral ID Status Reason Start Date Expiration Date V isits Requested Visits Authorized [id number] Closed Auto-Generate d Referral 12/14/2021 01/13/2023 1 1 * Diagnostic Procedure Only (Urgent) - Closed Specialty Diagnoses / Procedures Referred By Contac t Referred To Contact XR IMAGING Diagnoses Left wrist pain Injury of left wrist, initial encounter Procedures XR WRIST INJURY 4V PA/LAT/OBL/SCAPH LEFT RADEX WRIST COMPLETE MINIMUM 3 VIEWS Miranda Mcintosh APRN.[employer] MACHINE ADJUSTER [address] [place] [id number] [place] [address] Referral ID Status Reason Start Date Expiration Date V isits Requested Visits Authorized [id number] Closed Auto-Generate d Referral 12/14/2021 01/13/2023 1 1 [facility] for visit Narrative* Diagnostic Procedure Only (Routine) - Closed Specialty Diagnoses / Procedures Referred By Contac t Referred To Contact US IMAGING Diagnoses LLQ pain Suprapubic pain Change in stool habits Procedures US FEMALE PELVIS TRANSVAG US TRANSVAGINAL Chalino Bob, MARKET GARDENER.[employer] FORMING MACHINE ADJUSTER [address] [place] [address] [place] [address] Referral ID Status Reason Start Date Expiration Date V isits Requested Visits Authorized [id number] Closed Auto-Generate d Referral 03/06/2024 04/05/2025 1 1 [facility] for visit Narrative* Diagnostic Procedure Only (Routine) - Closed Specialty Diagnoses / Procedures Referred By Contac t Referred To Contact XR IMAGING Diagnoses LLQ pain Suprapubic pain Change in stool habits Procedures XR ABDOMEN 1V SUPINE RADIOLOGIC EXAM ABDOMEN 1 VIEW Chalino Bob, MARKET GARDENER.[employer] FORMING MACHINE ADJUSTER [address] [place] [address] [place] [address] Referral ID Status Reason Start Date Expiration Date V isits Requested Visits Authorized [id number] Closed Auto-Generate d Referral 03/06/2024 04/05/2025 1 1 [facility] for visit Narrative* Diagnostic Procedure Only (Urgent) - Closed Specialty Diagnoses / Procedures Referred By Contac t Referred To Contact XR IMAGING Diagnoses Finger swelling Pain of finger of left hand Procedures XR DIGIT GENERAL 3V FRONTAL/LAT/OBL LEFT RADEX FINGR MINIMUM 2 VIEWS Chalino Bob, MARKET GARDENER.[employer] FORMING MACHINE ADJUSTER [address] [place] [address] [place] [address] Referral ID Status Reason Start Date Expiration Date V isits Requested Visits Authorized [id number] Closed Auto-Generate d Referral 03/31/2022 04/30/2023 1 1 [facility] for visit Narrative* Diagnostic Procedure Only (Urgent) - Closed Specialty Diagnoses / Procedures Referred By Contac t Referred To Contact XR IMAGING Diagnoses Left hand pain Procedures XR HAND GENERAL 3V PA/LAT/OBL LEFT RADEX HAND MINIMUM 3 VIEWS Miranda Mcintosh, MARKET GARDENER.CARTON FORMING MACHINE ADJUSTER [address] [place] [address] [place] [address] Referral ID Status Reason Start Date Expiration Date V isits Requested Visits Authorized [id number] Closed Auto-Generate d Referral 12/14/2021 01/13/2023 1 1 [facility] Summary Purpose Family History No Family History Records FoundNo Family History Records FoundNo Family History Records Found Advance Directives No Advanced Directives Records FoundDocuments on File Type Date Recorded Patient Doctor Of Naturopathic Medicine Expl anation Advance Directive(s) 09/30/2019 7:43 AM Advance Directive(s) 09/17/2019 1:59 PM Additional Source Comments INFORMATION SOURCE (unrecogn ized section and content) DATE CREATED AUTHOR 02/06/2021 [facility] DATE CREATED AUTHOR AUTHOR'S ORGANIZ ATION 01/05/[address] [facility] DATE CREATED AUTHOR AUTHOR'S ORGANIZ ATION 07/27/2025 [facility] Source Comments (unrecognize d section and content) In the event this informatio n is protected by the Federal Confidentiality of Alcohol and Drug Abuse Patient Records regulations: The Federal rules restrict any use of the information to criminally investigate or prosecute any alcohol or drug abuse patient.[facility] event this information is protected by the Federal Confidentiality of Alcohol and Drug Abuse Patient Records regulations: The Federal rules restrict any use of the information to criminally investigate or prosecute any alcohol or drug abuse patient.[facility] the event this information is protected by the Federal Confidentiality of Alcohol and Drug Abuse Patient Records regulations: The Federal rules restrict any use of the information to criminally investigate or prosecute any alcohol or drug abuse patient.[facility] the event this information is protected by the Federal Confidentiality of Alcohol and Drug Abuse Patient Records regulations: The Federal rules restrict any use of the information to criminally investigate or prosecute any alcohol or drug abuse patient.[facility] the event this information is protected by the Federal Confidentiality of Alcohol and Drug Abuse Patient Records regulations: The Federal rules restrict any use of the information to criminally investigate or prosecute any alcohol or drug abuse patient.[facility] the event this information is protected by the Federal Confidentiality of Alcohol and Drug Abuse Patient Records regulations: The Federal rules restrict any use of the information to criminally investigate or prosecute any alcohol or drug abuse patient.[facility] the event this information is protected by the Federal Confidentiality of Alcohol and Drug Abuse Patient Records regulations: The Federal rules restrict any use of the information to criminally investigate or prosecute any alcohol or drug abuse patient.[facility] HamiltonIn the event this information is protected by the Federal Confidentiality of Alcohol and Drug Abuse Patient Records regulations: The Federal rules restrict any use of the information to criminally investigate or prosecute any alcohol or drug abuse patient.[facility] HamiltonIn the event this information is protected by the Federal Confidentiality of Alcohol and Drug Abuse Patient Records regulations: The Federal rules restrict any use of the information to criminally investigate or prosecute any alcohol or drug abuse patient.[facility] HamiltonIn the event this information is protected by the Federal Confidentiality of Alcohol and Drug Abuse Patient Records regulations: The Federal rules restrict any use of the information to criminally investigate or prosecute any alcohol or drug abuse patient.[facility] HamiltonIn the event this information is protected by the Federal Confidentiality of Alcohol and Drug Abuse Patient Records regulations: The Federal rules restrict any use of the information to criminally investigate or prosecute any alcohol or drug abuse patient.[facility] HamiltonIn the event this information is protected by the Federal Confidentiality of Alcohol and Drug Abuse Patient Records regulations: The Federal rules restrict any use of the information to criminally investigate or prosecute any alcohol or drug abuse patient.[facility] HamiltonIn the event this information is protected by the Federal Confidentiality of Alcohol and Drug Abuse Patient Records regulations: The Federal rules restrict any use of the information to criminally investigate or prosecute any alcohol or drug abuse patient.[facility] HamiltonIn the event this information is protected by the Federal Confidentiality of Alcohol and Drug Abuse Patient Records regulations: The Federal rules restrict any use of the information to criminally investigate or prosecute any alcohol or drug abuse patient.[facility] HamiltonIn the event this information is protected by the Federal Confidentiality of Alcohol and Drug Abuse Patient Records regulations: The Federal rules restrict any use of the information to criminally investigate or prosecute any alcohol or drug abuse patient.[facility] HamiltonIn the event this information is protected by the Federal Confidentiality of Alcohol and Drug Abuse Patient Records regulations: The Federal rules restrict any use of the information to criminally investigate or prosecute any alcohol or drug abuse patient.[facility] HamiltonIn the event this information is protected by the Federal Confidentiality of Alcohol and Drug Abuse Patient Records regulations: The Federal rules restrict any use of the information to criminally investigate or prosecute any alcohol or drug abuse patient.[facility] HamiltonIn the event this information is protected by the Federal Confidentiality of Alcohol and Drug Abuse Patient Records regulations: The Federal rules restrict any use of the information to criminally investigate or prosecute any alcohol or drug abuse patient.[facility] HamiltonIn the event this information is protected by the Federal Confidentiality of Alcohol and Drug Abuse Patient Records regulations: The Federal rules restrict any use of the information to criminally investigate or prosecute any alcohol or drug abuse patient.[facility] HamiltonIn the event this information is protected by the Federal Confidentiality of Alcohol and Drug Abuse Patient Records regulations: The Federal rules restrict any use of the information to criminally investigate or prosecute any alcohol or drug abuse patient.[facility] HamiltonIn the event this information is protected by the Federal Confidentiality of Alcohol and Drug Abuse Patient Records regulations: The Federal rules restrict any use of the information to criminally investigate or prosecute any alcohol or drug abuse patient.[facility] HamiltonIn the event this information is protected by the Federal Confidentiality of Alcohol and Drug Abuse Patient Records regulations: The Federal rules restrict any use of the information to criminally investigate or prosecute any alcohol or drug abuse patient.[facility] HamiltonIn the event this information is protected by the Federal Confidentiality of Alcohol and Drug Abuse Patient Records regulations: The Federal rules restrict any use of the information to criminally investigate or prosecute any alcohol or drug abuse patient.[facility] HamiltonIn the event this information is protected by the Federal Confidentiality of Alcohol and Drug Abuse Patient Records regulations: The Federal rules restrict any use of the information to criminally investigate or prosecute any alcohol or drug abuse patient.[facility] HamiltonIn the event this information is protected by the Federal Confidentiality of Alcohol and Drug Abuse Patient Records regulations: The Federal rules restrict any use of the information to criminally investigate or prosecute any alcohol or drug abuse patient.[facility] HamiltonIn the event this information is protected by the Federal Confidentiality of Alcohol and Drug Abuse Patient Records regulations: The Federal rules restrict any use of the information to criminally investigate or prosecute any alcohol or drug abuse patient.[facility] HamiltonIn the event this information is protected by the Federal Confidentiality of Alcohol and Drug Abuse Patient Records regulations: The Federal rules restrict any use of the information to criminally investigate or prosecute any alcohol or drug abuse patient.[facility] HamiltonIn the event this information is protected by the Federal Confidentiality of Alcohol and Drug Abuse Patient Records regulations: The Federal rules restrict any use of the information to criminally investigate or prosecute any alcohol or drug abuse patient.[facility] HamiltonIn the event this information is protected by the Federal Confidentiality of Alcohol and Drug Abuse Patient Records regulations: The Federal rules restrict any use of the information to criminally investigate or prosecute any alcohol or drug abuse patient.[facility] HamiltonIn the event this information is protected by the Federal Confidentiality of Alcohol and Drug Abuse Patient Records regulations: The Federal rules restrict any use of the information to criminally investigate or prosecute any alcohol or drug abuse patient.[facility] HamiltonIn the event this information is protected by the Federal Confidentiality of Alcohol and Drug Abuse Patient Records regulations: The Federal rules restrict any use of the information to criminally investigate or prosecute any alcohol or drug abuse patient.[facility] HamiltonIn the event this information is protected by the Federal Confidentiality of Alcohol and Drug Abuse Patient Records regulations: The Federal rules restrict any use of the information to criminally investigate or prosecute any alcohol or drug abuse patient.[facility] HamiltonIn the event this information is protected by the Federal Confidentiality of Alcohol and Drug Abuse Patient Records regulations: The Federal rules restrict any use of the information to criminally investigate or prosecute any alcohol or drug abuse patient.[facility] HamiltonIn the event this information is protected by the Federal Confidentiality of Alcohol and Drug Abuse Patient Records regulations: The Federal rules restrict any use of the information to criminally investigate or prosecute any alcohol or drug abuse patient.[facility] HamiltonIn the event this information is protected by the Federal Confidentiality of Alcohol and Drug Abuse Patient Records regulations: The Federal rules restrict any use of the information to criminally investigate or prosecute any alcohol or drug abuse patient.[facility] HamiltonIn the event this information is protected by the Federal Confidentiality of Alcohol and Drug Abuse Patient Records regulations: The Federal rules restrict any use of the information to criminally investigate or prosecute any alcohol or drug abuse patient.[facility] HamiltonIn the event this information is protected by the Federal Confidentiality of Alcohol and Drug Abuse Patient Records regulations: The Federal rules restrict any use of the information to criminally investigate or prosecute any alcohol or drug abuse patient.[facility] HamiltonIn the event this information is protected by the Federal Confidentiality of Alcohol and Drug Abuse Patient Records regulations: The Federal rules restrict any use of the information to criminally investigate or prosecute any alcohol or drug abuse patient.[facility] HamiltonIn the event this information is protected by the Federal Confidentiality of Alcohol and Drug Abuse Patient Records regulations: The Federal rules restrict any use of the information to criminally investigate or prosecute any alcohol or drug abuse patient.[facility] HamiltonIn the event this information is protected by the Federal Confidentiality of Alcohol and Drug Abuse Patient Records regulations: The Federal rules restrict any use of the information to criminally investigate or prosecute any alcohol or drug abuse patient.[facility] HamiltonIn the event this information is protected by the Federal Confidentiality of Alcohol and Drug Abuse Patient Records regulations: The Federal rules restrict any use of the information to criminally investigate or prosecute any alcohol or drug abuse patient.[facility] HamiltonIn the event this information is protected by the Federal Confidentiality of Alcohol and Drug Abuse Patient Records regulations: The Federal rules restrict any use of the information to criminally investigate or prosecute any alcohol or drug abuse patient.[facility] HamiltonIn the event this information is protected by the Federal Confidentiality of Alcohol and Drug Abuse Patient Records regulations: The Federal rules restrict any use of the information to criminally investigate or prosecute any alcohol or drug abuse patient.[facility] HamiltonIn the event this information is protected by the Federal Confidentiality of Alcohol and Drug Abuse Patient Records regulations: The Federal rules restrict any use of the information to criminally investigate or prosecute any alcohol or drug abuse patient.[facility] HamiltonIn the event this information is protected by the Federal Confidentiality of Alcohol and Drug Abuse Patient Records regulations: The Federal rules restrict any use of the information to criminally investigate or prosecute any alcohol or drug abuse patient.[facility] HamiltonIn the event this information is protected by the Federal Confidentiality of Alcohol and Drug Abuse Patient Records regulations: The Federal rules restrict any use of the information to criminally investigate or prosecute any alcohol or drug abuse patient.[facility] HamiltonIn the event this information is protected by the Federal Confidentiality of Alcohol and Drug Abuse Patient Records regulations: The Federal rules restrict any use of the information to criminally investigate or prosecute any alcohol or drug abuse patient.[facility] HamiltonIn the event this information is protected by the Federal Confidentiality of Alcohol and Drug Abuse Patient Records regulations: The Federal rules restrict any use of the information to criminally investigate or prosecute any alcohol or drug abuse patient.[facility] HamiltonIn the event this information is protected by the Federal Confidentiality of Alcohol and Drug Abuse Patient Records regulations: The Federal rules restrict any use of the information to criminally investigate or prosecute any alcohol or drug abuse patient.[facility] HamiltonIn the event this information is protected by the Federal Confidentiality of Alcohol and Drug Abuse Patient Records regulations: The Federal rules restrict any use of the information to criminally investigate or prosecute any alcohol or drug abuse patient.[facility] HamiltonIn the event this information is protected by the Federal Confidentiality of Alcohol and Drug Abuse Patient Records regulations: The Federal rules restrict any use of the information to criminally investigate or prosecute any alcohol or drug abuse patient.[facility] HamiltonIn the event this information is protected by the Federal Confidentiality of Alcohol and Drug Abuse Patient Records regulations: The Federal rules restrict any use of the information to criminally investigate or prosecute any alcohol or drug abuse patient.[facility] HamiltonIn the event this information is protected by the Federal Confidentiality of Alcohol and Drug Abuse Patient Records regulations: The Federal rules restrict any use of the information to criminally investigate or prosecute any alcohol or drug abuse patient.[facility] HamiltonIn the event this information is protected by the Federal Confidentiality of Alcohol and Drug Abuse Patient Records regulations: The Federal rules restrict any use of the information to criminally investigate or prosecute any alcohol or drug abuse patient.[facility] HamiltonIn the event this information is protected by the Federal Confidentiality of Alcohol and Drug Abuse Patient Records regulations: The Federal rules restrict any use of the information to criminally investigate or prosecute any alcohol or drug abuse patient.[facility] HamiltonIn the event this information is protected by the Federal Confidentiality of Alcohol and Drug Abuse Patient Records regulations: The Federal rules restrict any use of the information to criminally investigate or prosecute any alcohol or drug abuse patient.[facility] HamiltonIn the event this information is protected by the Federal Confidentiality of Alcohol and Drug Abuse Patient Records regulations: The Federal rules restrict any use of the information to criminally investigate or prosecute any alcohol or drug abuse patient.[facility] HamiltonIn the event this information is protected by the Federal Confidentiality of Alcohol and Drug Abuse Patient Records regulations: The Federal rules restrict any use of the information to criminally investigate or prosecute any alcohol or drug abuse patient.[facility] Care Teams (unrecognized sec tion and content) International Coordinator Relationship Specialty Start Date End Date Juan A Balbuena, DO [address] [place] [address] PCP - General Family Practice 12/08/15 International Coordinator Relationship Specialty Start Date End Date Juan A Balbuena, DO [address] [place] [address] PCP - General Family Practice 12/08/15 International Coordinator Relationship Specialty Start Date End Date Juan A Balbuena, DO [address] [place] [address] PCP - General Family Practice 12/08/15 International Coordinator Relationship Specialty Start Date End Date Juan A Balbuena, DO [address] [place] [address] PCP - General Family Practice 12/08/15 International Coordinator Relationship Specialty Start Date End Date Juan A Balbuena, DO [address] [place] [address] PCP - General Family Practice 12/08/15 International Coordinator Relationship Specialty Start Date End Date Juan A Balbuena, DO [address] [place] [address] PCP - General Family Practice 12/08/15 International Coordinator Relationship Specialty Start Date End Date Juan A Balbuena, DO [address] [place] [address] PCP - General Family Medicine 12/08/15 International Coordinator Relationship Specialty Start Date End Date Juan A Balbuena, DO [address] [place] [address] PCP - General Family Medicine 12/08/15 International Coordinator Relationship Specialty Start Date End Date Juan A Balbuena, DO [address] [place] [address] PCP - General Family Medicine 12/08/15 International Coordinator Relationship Specialty Start Date End Date Juan A Balbuena, DO [address] [place] [address] PCP - General Family Medicine 12/08/15 International Coordinator Relationship Specialty Start Date End Date Juan A Balbuena, DO [address] [place] [address] PCP - General Family Medicine 12/08/15 International Coordinator Relationship Specialty Start Date End Date Juan A Balbuena, DO [address] [place] [address] PCP - General Family Medicine 12/08/15 International Coordinator Relationship Specialty Start Date End Date Juan A Balbuena, DO [address] [place] [address] PCP - General Family Medicine 12/08/15 International Coordinator Relationship Specialty Start Date End Date Juan A Balbuena, DO [address] [place] [address] PCP - General Family Medicine 12/08/15 International Coordinator Relationship Specialty Start Date End Date Juan A Balbuena, DO [address] [place] [address] PCP - General Family Medicine 12/08/15 International Coordinator Relationship Specialty Start Date End Date Juan A Balbuena DO [address] [place] [address] PCP - General Family Medicine 12/08/15 International Coordinator Relationship Specialty Start Date End Date Juan A Balbuena DO [address] [place] [address] PCP - General Family Medicine 12/08/15 International Coordinator Relationship Specialty Start Date End Date Juan A Balbuena DO [address] [place] [address] PCP - General Family Medicine 12/08/15 International Coordinator Relationship Specialty Start Date End Date Juan A Balbuena DO [address] [place] [address] PCP - General Family Medicine 12/08/15 International Coordinator Relationship Specialty Start Date End Date Juan A Balbuena DO [address] [facility] [place] [address] PCP - General Family Medicine 12/08/15 International Coordinator Relationship Specialty Start Date End Date Juan A Balbuena DO [address] [facility] [place] [address] PCP - General Family Medicine 12/08/15 International Coordinator Relationship Specialty Start Date End Date Juan A Balbuena DO [address] [facility] [place] [address] PCP - General Family Medicine 12/08/15 International Coordinator Relationship Specialty Start Date End Date Juan A Balbuena, [address] [place] [address] PCP - General Family Medicine 12/08/15 International Coordinator Relationship Specialty Start Date End Date Juan A Balbuena, [address] [place] [address] PCP - General Family Medicine 12/08/15 International Coordinator Relationship Specialty Start Date End Date Juan A Balbuena, [address] [place] [address] PCP - General Family Medicine 12/08/15 International Coordinator Relationship Specialty Start Date End Date Juan A Balbuena DO [address] [place] [address] PCP - General Family Medicine 12/08/15 International Coordinator Relationship Specialty Start Date End Date Juan A Balbuena DO [address] [place] [address] PCP - General Family Medicine 12/08/15 International Coordinator Relationship Specialty Start Date End Date Juan A Balbuena DO [address] [place] [address] PCP - General Family Medicine 12/08/15 International Coordinator Relationship Specialty Start Date End Date Juan A Balbuena DO [address] [place] [address] PCP - General Family Medicine 12/08/15 International Coordinator Relationship Specialty Start Date End Date Juan A Balbuena, [address] [place] [address] PCP - General Family Medicine 12/08/15 International Coordinator Relationship Specialty Start Date End Date Juan A Babluena DO [address] [place] [address] PCP - General Family Medicine 12/08/15 International Coordinator Relationship Specialty Start Date End Date Juan A Balbuena DO [address] [facility] [place] [address] PCP - General Family Medicine 12/08/15 International Coordinator Relationship Specialty Start Date End Date Juna A Balbuena DO [address] [facility] [place] [address] PCP - General Family Medicine 12/08/15 International Coordinator Relationship Specialty Start Date End Date Juan A Balbuena DO [address] [facility] [place] [address] PCP - General Family Medicine 12/08/15 International Coordinator Relationship Specialty Start Date End Date Juan A Balbuena DO [address] [place] [address] PCP - General Family Medicine 12/08/15 Susan Wiley, MARKET GARDENER.[employer]ARTON FORMING MACHINE ADJUSTER [address] [facility] [place] [address] Contract Specialist Family Medicine 10/13/24 Chalino Bob APRN.[employer] FORMING MACHINE ADJUSTER [address] [facility] [place] [address] Contract Specialist Family Medicine 10/13/24 International Coordinator Relationship Specialty Start Date End Date Juan A Balbuena DO [address] [facility] [place] [address] PCP - General Family Medicine 12/08/15 Susan Wiley, MARKET GARDENER.CARTON FORMING MACHINE ADJUSTER [address] [place] [address] Contract Specialist Family Medicine 10/13/24 Chalino Bob, MARKET GARDENER.CARTON FORMING MACHINE ADJUSTER [address] [place] [address] Contract Specialist Family Medicine 10/13/24 International Coordinator Relationship Specialty Start Date End Date Juan A Balbuena DO [address] [place] [address] PCP - General Family Medicine 12/08/15 Susan Wiley, MARKET GARDENER.CARTON FORMING MACHINE ADJUSTER [address] [place] [address] Contract Specialist Family Medicine 10/13/24 Chalino Bob, MARKET GARDENER.CARTON FORMING MACHINE ADJUSTER [address] [place] [address] [facility] International Coordinator Relationship Specialty Start Date End Date Juan A Balbuena DO [address] [place] [address] PCP - General Family Medicine 12/08/15 Susan Wiley, MARKET GARDENER.CARTON FORMING MACHINE ADJUSTER [address] [place] [address] Contract Specialist Family Medicine 10/13/24 Chalino Bob, MARKET GARDENER.CARTON FORMING MACHINE ADJUSTER [address] [place] [address] Contract Specialist Family Medicine 10/13/24 International Coordinator Relationship Specialty Start Date End Date Juan A Balbuena DO [address] [facility] [place] [address] PCP - General Family Medicine 12/08/15 AnnaliseChalino, MARKET GARDENER.CARTON FORMING MACHINE ADJUSTER [address] [facility] [place] [address] [facility] 10/13/24 International Coordinator Relationship Specialty Start Date End Date Juan A Balbuena DO [address] [facility] [place] [address] PCP - General Family Medicine 12/08/15 AnnaliseChalino, MARKET GARDENER.CARTON FORMING MACHINE ADJUSTER [address] [facility] [place] [address] [facility] 10/13/24 International Coordinator Relationship Specialty Start Date End Date Juan A Balbuena DO [address] [facility] [place] [address] PCP - General Family Medicine 12/08/15 AnnaliseChalino, MARKET GARDENER.CARTON FORMING MACHINE ADJUSTER [address] [facility] [place] [address] Contract Specialist Family [facility] 10/13/24 Bushra Gee, MARKET GARDENER.CARTON FORMING MACHINE ADJUSTER [address] [place] [address] [facility] 04/21/25 International Coordinator Relationship Specialty Start Date End Date Juan A Balbuena DO [address] [facility] [place] [address] PCP - General Family Medicine 12/08/15 AnnaliseChalino, MARKET GARDENER.CARTON FORMING MACHINE ADJUSTER [address] [facility] [place] [address] Contract Specialist Family Medicine 10/13/24 Bushra Gee, MARKET GARDENER.CARTON FORMING MACHINE ADJUSTER [address] [place] [address] Contract Specialist Family Medicine 04/21/25 International Coordinator Relationship Specialty Start Date End Date Juan A Balbuena DO [address] [facility] [place] [address] PCP - General Family Medicine 12/08/15 AnnaliseChalino, MARKET GARDENER.CARTON FORMING MACHINE ADJUSTER [address] [facility] [place] [address] Contract Specialist Family [facility] 10/13/24 Bushra Gee, MARKET GARDENER.[employer]ARTON FORMING MACHINE ADJUSTER [address] [place] [address] [facility]25 International Coordinator Relationship Specialty Start Date End Date Juan A Balbuena DO [address] [facility] [place] [address] PCP - General Family Medicine 12/08/15 AnnaliseChalino, MARKET GARDENER.CARTON FORMING MACHINE ADJUSTER [address] [facility] [place] [address] Contract Specialist Family Medicine 10/13/24 Bushra Gee, MARKET GARDENER.CARTON FORMING MACHINE ADJUSTER [address] [place] [address] Contract Specialist Family Medicine 04/21/25 International Coordinator Relationship Specialty Start Date End Date Juan A Balbuena DO [address] [place] [address] PCP - General Family Medicine 12/08/15 Chalino Bob, ARVIND.CARTON FORMING MACHINE ADJUSTER [address] [place] [address] Contract Specialist Family Medicine 10/13/24 Bushra Gee, MARKET GARDENER.CARTON FORMING MACHINE ADJUSTER [address] [place] [address] Contract Specialist Family Medicine 04/21/25 International Coordinator Relationship Specialty Start Date End Date Juan A Balbuena DO [address] [place] [address] PCP - General Family Medicine 12/08/15 Chalino Bob, MARKET GARDENER.CARTON FORMING MACHINE ADJUSTER [address] [place] [address] Contract Specialist Family Medicine 10/13/24 Bushra Gee, MARKET GARDENER.CARTON FORMING MACHINE ADJUSTER [address] [place] [address] Contract Specialist Family Medicine 04/21/25 Reason for Visit (unrecogniz ed section and content) Reason Comments left finger swelling Reason Comments Headache Reason Comments Follow Up Ingrown Toenail Reason Onset Date Comments Refill Request 07/18/2022 Reason Comments increased heart burn Reason Onset Date Comments Well Woman Gardasil Injection 08/31/2022 Reason Comments Full Body Skin Check Reason Comments Sinusitis Reason Comments Follow Up hasn't started Prilo sec. Watching diet as of right now. Medication Problem Feels like lexapro i s effecting sexual drive Reason Onset Date Comments Gardasil Injection 11/15/2022 Reason Comments Follow Up Anxiety and adhd and headaches Reason Onset Date Comments Refill Request 01/05/2023 Reason Comments Abdominal Pain Reason Onset Date Comments Refill Request 02/16/2023 Reason Onset Date Comments Gardasil Injection 03/16/2023 Reason Comments Yearly Exam Reason Onset Date Comments Refill Request 06/22/2023 Reason Comments Yearly Exam Reason Onset Date Comments Refill Request 09/24/2023 Reason Comments headaches/migrains Waking up past coupl e months and blows nose and getting green mucus Reason Onset Date Comments Refill Request 02/18/2024 Reason Comments Abdominal Pain Sharp stabbing lower abdomen, x 2 weeks, sometimes will feel relief with a bowel movement or passing gas. Soft stools for the past week. Stool is more solid. Reason Comments Appointment Reason Comments Diarrhea Reason Onset Date Comments Refill Request 08/05/2024 Reason Comments Weight Check Reason Onset Date Comments Refill Request 10/07/2024 Reason Comments Follow Up Reason Onset Date Comments Refill Request 12/29/2024 Reason Comments Medication Problem Reason Comments F/U 3 Month Weight- adipex Reason Comments Orders Reason Comments Headache x 3 days Reason Comments F/U 3 Month Reason Comments Refill Request FOR RECORDS PERTAINING TO PATIENTS WHO ARE OR HAVE BEEN ENROLLED IN A CHEMICAL DEPENDENCY/SUBSTANCEABUSE PROGRAM, SOME INFORMATION MAY BE OMITTED. This clinical summary was aggregated from multiple sources. Caution should be exercised in using it in the provision of clinical care. This summary normalizes information from multiple sources, and as a consequence, information in this document may materially change the coding, format and clinical context of patient data. In addition, data may be omitted in some cases. CLINICAL DECISIONS SHOULD BE BASED ON THE PRIMARY CLINICAL RECORDS. [facility] provides no warranty or guarantee of the accuracy or completeness of information in this document.
[2025-09-20] MEDS: HYDROcodone Bitartrate/Apap 5/325 Tablet PO (13:02)
[2025-09-20] MEDS: BACITRACIN 15 GM Tube 1 APPLIC TOPICAL (13:05)
[2025-09-20 13:09] VITALS: BP 111/89; PULSE 73; RESP 20; TEMP 36.5; O2SAT 100
== END 2025-09-20 13:20 | disposition home or self-care (01) ==
LOC: ED 12:54
PROVIDERS: Emergency Provider Emergency Medicine; PCP Student in an Organized Health Care Education/Training Program; Visit Provider Emergency Medicine
DX: T23.201A Burn of second degree of right hand, unspecified site, initial encounter (principal); X13.1XXA Other contact with steam and other hot vapors, initial encounter
CPT/HCPCS: 99283